=== PATIENT | female | born 1995 | race Caucasian/White ===

== ENCOUNTER 2017-12-16 18:17 | Emergency (ER) | payer OTHER ==
[2017-12-16 18:25] VITALS: BP 141/83; PULSE 95; RESP 18; TEMP 97.2
[2017-12-16] MEDS ORDERED: IBUPROFEN 600 MG TAB PO STA (18:28)
[2017-12-16] MEDS ORDERED: ACETAMINOPHEN TAB 325 MG TAB PO STA (18:28)
--- NOTE | 2017-12-16 18:33 | ED ---
Lower Extremity Injury HPI - General Chief Complaint: Extremity Injury, Lower Stated Complaint: Foot injury Time Seen by Provider: 12/16/17 18:25 Source: patient Mode of arrival: ambulatory Limitations: no limitations - History of Present Illness Initial Comments: 22-year-old female patient presented to the emergency department for evaluation of right foot pain. Patient states that around 2 PM today she actually kicked a chair. States that she's been having sharp shooting pains through the foot since then. States that she does have pain with ambulation as well. She denies any numbness or tingling to the foot. Denies any difficulty with range of motion to the ankle. Denies taking anything for pain. Denies any other injuries. Patient denies any headache, neck pain, back pain, chest pain, shortness of breath, dizziness, weakness, abdominal pain, nausea, vomiting, or difficulties with bowel movements or urination. She denies any chance of . - Related Data Home Medications Medication Instructions Recorded Confirmed Acyclovir 400 mg PO BID 08/29/16 10/21/16 Iron 18 mg PO DAILY 08/30/16 10/21/16 Previous Rx's Medication Instructions Recorded Acetaminophen-Codeine 300-30mg 1 tab PO Q4H PRN #30 tablet 10/24/16 [Tylenol #3] Ibuprofen [Motrin] 600 mg PO Q6HR PRN #30 tab 10/24/16 Ibuprofen [Motrin] 600 mg PO Q8HR PRN #30 tab 12/16/17 Allergies Allergy/AdvReac Type Severity Reaction Status Date / Time No Known Allergies Allergy Verified 12/16/17 18:18 Review of Systems ROS Statement: Those systems with pertinent positive or pertinent negative responses have been documented in the HPI. ROS Other: All systems not noted in ROS Statement are negative. Past Medical History Past Medical History: No Reported History Additional Past Medical History / Comment(s): herpes History of Any Multi-Drug Resistant Organisms: None Reported Past Surgical History: Section Past Anesthesia/Blood Transfusion Reactions: No Reported Reaction Additional Past Anesthesia/Blood Transfusion Reaction / Comment(s): NEVER HAS HAD GENERAL ANESTHESIA Past Psychological History: Anxiety, Depression Smoking Status: Current every day smoker Past Alcohol Use History: None Reported Past Drug Use History: None Reported, Marijuana - Past Family History Mother Family Medical History: No Reported History Father Additional Family Medical History / Comment(s): "PASSES OUT" MOM STATES "BOTH DAUGHTER'S DAD AND AUNT PASS OUT CECELIA WHEN SMOKING WEED WHEN THEY WERE YOUNG BUT NOBODY HAS SEEN A DR FOR IT" General Exam Limitations: no limitations General appearance: alert, in no apparent distress, other (This is a well- developed, well-nourished adult female patient in no acute distress. Vital signs upon presentation are temperature 97.2F, pulse 95, respirations 18, blood pressure 141/83, pulse ox 99% on room air. ) Eye exam: Present: normal appearance, PERRL, EOMI. Absent: scleral icterus, conjunctival injection, periorbital swelling ENT exam: Present: normal exam, normal oropharynx, mucous membranes moist Respiratory exam: Present: normal lung sounds bilaterally. Absent: respiratory distress, wheezes, rales, rhonchi, stridor Cardiovascular Exam: Present: regular rate, normal rhythm, normal heart sounds. Absent: systolic murmur, diastolic murmur, rubs, gallop, clicks GI/Abdominal exam: Present: soft, normal bowel sounds. Absent: distended, tenderness, guarding, rebound, rigid Extremities exam: Present: full ROM, tenderness (Over the dorsal aspect of the right foot), normal capillary refill, other (Ecchymosis noted over the dorsal aspect of the right foot. Skin is otherwise pink, warm, and dry. Cap refills less than 3 seconds. Pedal and posttibial pulses are 2+ and equal bilaterally.) . Absent: normal inspection, pedal edema, joint swelling, calf tenderness Neurological exam: Present: alert, oriented X3, CN II-XII intact Psychiatric exam: Present: normal affect, normal mood Skin exam: Present: warm, dry, intact, normal color. Absent: rash Course Vital Signs 12/16/17 18:18 Temperature 97.2 F L Pulse Rate 95 Respiratory 18 Rate Blood Pressure 141/83 O2 Sat by Pulse 99 Oximetry Medical Decision Making - Medical Decision Making 22-year-old female patient presented to the emergency department today for evaluation of right foot pain and ecchymosis after kicking a chair. Physical examination does reveal ecchymosis over the dorsum of the foot. Patient is tender over this area as well. X-ray of the foot was negative for any acute fracture dislocation however patient is tender over the area concerning for Lisfranc fracture. She will be placed in a splint and instructed to remain nonweightbearing until she follows up with orthopedics. She is instructed to return here immediately for any new, worsening, or concerning symptoms. She verbalizes understanding and agrees this plan. - Radiology Data Radiology results: report reviewed, image reviewed 3 views of the right foot shows no fracture or dislocation. Metatarsals are intact. There are no erosions. Impression by Dr. Walton shows negative right foot exam. Disposition Clinical Impression: Right foot injury, Ecchymosis Disposition: HOME SELF-CARE Condition: Good Instructions: Contusion in Adults (ED) Additional Instructions: Your x-ray is negative, but there is a possibility of an occult Lis Franc fracture. Leave splint in place for one week. If symptoms are not improved, follow up with orthopedics for repeat xray and testing. Use crutches. Return here immediately for any new, worsening, or concerning symptoms. Prescriptions: Ibuprofen [Motrin] 600 mg PO Q8HR PRN #30 tab PRN Reason: Pain Referrals: Jayden Willson MD [Primary Care Provider] - 1-2 days Time of Disposition: 19:29
--- NOTE | 2017-12-16 19:05 | XR ---
EXAMINATION TYPE: XR foot complete RT DATE OF EXAM: 12/16/2017 COMPARISON: NONE HISTORY: Foot pain TECHNIQUE: 3 views FINDINGS: I see no fracture nor dislocation. Metatarsals are intact. There are no erosions. IMPRESSION: Negative right foot exam.
--- NOTE | 2017-12-18 05:09 | CDI ---
Documentation Clarification OP Dear Angelica BURCIAGA, NPC, Please add addendum for Type of splint application procedure. Thank you, [employer] Test Engineer If you have any questions please contact manager process excellence at [phone]. MTDD
== END 2017-12-16 19:43 | disposition home or self-care (01) ==
LOC: EC 18:17
DX: S90.31XA Contusion of right foot, initial encounter (principal); F17.200 Nicotine dependence, unspecified, uncomplicated; Z79.899 Other long term (current) drug therapy; W22.8XXA Striking against or struck by other objects, initial encounter
CPT/HCPCS: 29515; 99283

== ENCOUNTER 2018-01-26 13:56 | Emergency (ER) | payer OTHER ==
--- NOTE | 2018-01-26 15:07 | ED ---
General Adult HPI - General Chief complaint: Extremity Injury, Upper Stated complaint: arm injury Source: patient Mode of arrival: ambulatory Limitations: no limitations - History of Present Illness Initial comments: 22 year old female presents with right elbow pain after slamming it in the car door last night at 11:30 pm. Patient states bruising has continued since last night. She states she has pain upon flexion and extension of the elbow as well as supination the forearm. Denies any pain or loss of ROM in the right wrist or right shoulder. Neurovascular intact. There is bruising to the lateral epicondyle of the right humerus as well as the medial aspect of the upper right arm. Patient has not taken anything for pain. She also complains of a "bump" under the angle of the left mandible. It has been there for 2 days and is very tender. She has never had anything like this occur before. Patient denies ear pain and rhinorrhea. She does admit to slight tenderness in the throat upon swallowing. - Related Data Home Medications Medication Instructions Recorded Confirmed Citalopram Hydrobromide [CeleXA] 20 mg PO DAILY 01/26/18 01/26/18 Allergies Allergy/AdvReac Type Severity Reaction Status Date / Time No Known Allergies Allergy Verified 01/26/18 14:06 Review of Systems ROS Statement: Those systems with pertinent positive or pertinent negative responses have been documented in the HPI. ROS Other: All systems not noted in ROS Statement are negative. Past Medical History Past Medical History: No Reported History Additional Past Medical History / Comment(s): herpes History of Any Multi-Drug Resistant Organisms: None Reported Past Surgical History: Section Past Anesthesia/Blood Transfusion Reactions: No Reported Reaction Additional Past Anesthesia/Blood Transfusion Reaction / Comment(s): NEVER HAS HAD GENERAL ANESTHESIA Past Psychological History: Anxiety, Depression Smoking Status: Current every day smoker Past Alcohol Use History: None Reported Past Drug Use History: None Reported - Past Family History Mother Family Medical History: No Reported History Father Additional Family Medical History / Comment(s): "PASSES OUT" MOM STATES "BOTH DAUGHTER'S DAD AND AUNT PASS OUT CECELIA WHEN SMOKING WEED WHEN THEY WERE YOUNG BUT NOBODY HAS SEEN A DR FOR IT" General Exam Limitations: no limitations General appearance: alert Head exam: Present: atraumatic, normocephalic Eye exam: Present: normal appearance. Absent: conjunctival injection, periorbital swelling, periorbital tenderness Pupils: Present: normal accommodation ENT exam: Present: mucous membranes moist, other (erythematous throat ) Neck exam: Present: tenderness (tender nodule, likely lymph node, under the left angle of the mandible), full ROM, lymphadenopathy (tender left submandibular lymph node, no posterior lymph nodes or other cervical lymph nodes ) Extremities exam: Present: tenderness, other (neurovascular intact in right upper extremity). Absent: full ROM (limited flexion, extension of right forearm and supination of right hand.) Course Vital Signs 01/26/18 13:57 Temperature 96.8 F L Pulse Rate 107 H Respiratory 17 Rate Blood Pressure 124/85 O2 Sat by Pulse 98 Oximetry Medical Decision Making - Medical Decision Making 22-year-old female patient presented after slamming right elbow in car door late last night. She states she has pain with flexion and extension and supination of the right hand. There is slight bruising of the right elbow. X- ray of right elbow showed no abnormalities or fractures. She has not tried any [id number] medication for pain as of yet, so I recommended tylenol or ibuprofen. Patient also agreed to wait and see if her lymph node improves. If not she is going to follow up with her family care physician. She does not want to start antibiotics at this time. Disposition Clinical Impression: Elbow contusion Disposition: HOME SELF-CARE Instructions: Elbow Sprain (ED) Additional Instructions: If symptoms worsen, return to ED. Take [id number] tylenol for pain and use ice or heat. Referrals: Jayden Willson MD [Primary Care Provider] - 1-2 days Time of Disposition: 15:45
--- NOTE | 2018-01-26 15:19 | XR ---
EXAMINATION TYPE: XR elbow complete RT DATE OF EXAM: 01/26/2018 CLINICAL HISTORY: Right elbow pain after injury TECHNIQUE: Frontal, lateral and oblique images of the right elbow are obtained. COMPARISON: None FINDINGS: There is no acute fracture/dislocation evident in the right elbow. No abnormal fat pad si gns are seen. The overlying soft tissue appears unremarkable. IMPRESSION: There is no acute fracture or dislocation in the right elbow.
[2018-01-26 16:08] VITALS: BP 120/81; PULSE 98; RESP 16; TEMP 97.1
== END 2018-01-26 16:08 | disposition home or self-care (01) ==
LOC: EC 13:56
DX: S50.01XA Contusion of right elbow, initial encounter (principal); F32.9 Major depressive disorder, single episode, unspecified; F17.200 Nicotine dependence, unspecified, uncomplicated; Z79.899 Other long term (current) drug therapy; W23.0XXA Caught, crushed, jammed, or pinched between moving objects, initial encounter
CPT/HCPCS: 99283

== ENCOUNTER 2018-02-21 21:24 | Inpatient (IN) | payer OTHER, MEDICAID ==
--- NOTE | 2018-02-21 21:52 | ED ---
General Adult HPI - General Chief complaint: Psychiatric Symptoms Stated complaint: Mental Health Eval Time Seen by Provider: 02/21/18 21:33 Source: patient, RN notes reviewed Mode of arrival: ambulatory Limitations: no limitations - History of Present Illness Initial comments: Patient is a pleasant 22-year-old female presenting to the emergency Department with depression and suicidal thoughts. Symptoms have been worsening. Patient has multiple stressors that are causing her depression. Patient does have a history of previous suicide attempt. Patient does not have a plan at this time. No physical complaints. No hallucinations. No alcohol or street drug use. - Related Data Home Medications Medication Instructions Recorded Confirmed Citalopram Hydrobromide [CeleXA] 20 mg PO DAILY 01/26/18 01/26/18 Allergies Allergy/AdvReac Type Severity Reaction Status Date / Time No Known Allergies Allergy Verified 02/21/18 21:28 Review of Systems ROS Statement: Those systems with pertinent positive or pertinent negative responses have been documented in the HPI. ROS Other: All systems not noted in ROS Statement are negative. Constitutional: Denies: fever Eyes: Denies: eye pain ENT: Denies: ear pain Respiratory: Denies: cough Cardiovascular: Denies: chest pain Endocrine: Denies: fatigue Gastrointestinal: Denies: abdominal pain Genitourinary: Denies: dysuria Musculoskeletal: Denies: back pain Psychiatric: Reports: depression, suicidal thoughts Past Medical History Past Medical History: No Reported History Additional Past Medical History / Comment(s): herpes History of Any Multi-Drug Resistant Organisms: None Reported Past Surgical History: Section Past Anesthesia/Blood Transfusion Reactions: No Reported Reaction Additional Past Anesthesia/Blood Transfusion Reaction / Comment(s): NEVER HAS HAD GENERAL ANESTHESIA Past Psychological History: Anxiety, Depression Smoking Status: Current every day smoker Past Alcohol Use History: None Reported Past Drug Use History: None Reported - Past Family History Mother Family Medical History: No Reported History Father Additional Family Medical History / Comment(s): "PASSES OUT" MOM STATES "BOTH DAUGHTER'S DAD AND AUNT PASS OUT CECELIA WHEN SMOKING WEED WHEN THEY WERE YOUNG BUT NOBODY HAS SEEN A DR FOR IT" General Exam Limitations: no limitations General appearance: alert, in no apparent distress, anxious Head exam: Present: atraumatic Eye exam: Present: normal appearance Neck exam: Present: normal inspection Respiratory exam: Present: normal lung sounds bilaterally Cardiovascular Exam: Present: regular rate, normal rhythm GI/Abdominal exam: Present: soft. Absent: tenderness Extremities exam: Present: normal inspection Back exam: Present: normal inspection Neurological exam: Present: alert Psychiatric exam: Present: depressed, other (Tearful) Skin exam: Present: normal color Course Vital Signs 02/21/18 21:26 Temperature 98.3 F Pulse Rate 101 H Respiratory 20 Rate Blood Pressure 142/97 O2 Sat by Pulse 99 Oximetry Medical Decision Making - Medical Decision Making Patient was seen by mental health services, who will admit. - Lab Data Lab Results 02/21/18 Range/Units 22:30 Urine HCG, Qual Not Detected (Not Detectd) Disposition Clinical Impression: Depression, Suicidal ideation Disposition: TRANSFER TO PSYCH HOSP/UNIT Referrals: Jayden Willson MD [Primary Care Provider] - 1-2 days Decision Time: 23:03
[2018-02-21 23:08] LABS: Amphetamine Screen,Urine Not Detected (NotDetected); Barbiturate Screen,Urine Not Detected (NotDetected); Benzodiazepines Screen,Urine Not Detected (NotDetected); Cocaine Screen,Urine Not Detected (NotDetected); Methadone Screen, Urine Not Detected (NotDetected); Opiate Screen,Urine Not Detected (NotDetected); Oxycodone Screen, Urine Not Detected (NotDetected); Phencyclidine Screen,Urine Not Detected (NotDetected); Tricyclic Antidepressant,Urine Not Detected (NotDetected); Urn Cannabinoid Scrn Not Detected (NotDetected)
[2018-02-21] MEDS ORDERED: ZIPRASIDONE 20 MG VIAL IM PRN (23:28)
[2018-02-21] MEDS ORDERED: ACETAMINOPHEN TAB 325 MG TAB PO PRN (23:28)
[2018-02-21] MEDS ORDERED: MAG HYDROX/AL HYDROX/SIMETH 30 ML CUP PO PRN (23:28)
[2018-02-21] MEDS ORDERED: MAGNESIUM HYDROXIDE 2,400 MG/10 ML CUP PO PRN (23:28)
[2018-02-21 23:39] LABS: Appearance,Urine Clear (Clear); Bilirubin,Urine Negative (Negative); Blood,Urine Negative (Negative); Color,Urine Light Yellow; Glucose,Urine (UA) Negative (Negative); Ketones,Urine 1+ (Negative); Leukocyte Esterase,Urine Negative (Negative); Nitrite,Urine Negative (Negative); PH, Urine 6.5 (5.0-8.0); Protein,Urine Negative (Negative); Specific Gravity,Urine 1.005 (1.001-1.035); Urobilinogen,Urine <2.0 mg/dL (<2.0)
[2018-02-22] MEDS ORDERED: hydrOXYzine PAMOATE 25 MG CAP PO PRN (00:30)
[2018-02-22 08:54] LABS: Basophils % (A) 1 %; Eosinophils # (A) 0.2 k/uL (0-0.7); Eosinophils % (A) 4 %; HCT 37.9 % (34.0-46.0); HGB 12.3 gm/dL (11.4-16.0); Lymphocytes # (A) 2.3 k/uL (1.0-4.8); Lymphocytes % (A) 44 %; MCH 27.5 pg (25.0-35.0); MCHC 32.4 g/dL (31.0-37.0); MCV 84.9 fL (80.0-100.0); Mean Platelet Volume 7.7; Monocytes # (A) 0.3 k/uL (0-1.0); Monocytes % (A) 6 %; Neutrophils # (A) 2.2 k/uL (1.3-7.7); Neutrophils % (A) 43 %; Platelet Count 196 k/uL (150-450); RBC 4.47 m/uL (3.80-5.40); RDW 13.3 % (11.5-15.5); WBC 5.2 k/uL (4.0-11.0)
[2018-02-22] MEDS: NICOTINE 14MG/24HR PATCH TRANSDERM SCH (09:05)
[2018-02-22 09:07] LABS: ALT 73 U/L (9-52); AST 28 U/L (14-36); Albumin 4.1 g/dL (3.5-5.0); Alkaline Phosphatase 95 U/L (38-126); Anion Gap 10 mmol/L; Blood Urea Nitrogen 14 mg/dL (7-17); Calcium 9.5 mg/dL (8.4-10.2); Carbon Dioxide 28 mmol/L (22-30); Chloride 106 mmol/L (98-107); Glucose 88 mg/dL (74-99); Potassium 4.4 mmol/L (3.5-5.1); Sodium 144 mmol/L (137-145); Total Bilirubin 1.3 mg/dL (0.2-1.3)
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
--- NOTE | 2018-02-22 15:28 | CONS ---
CONSULTATION DATE OF SERVICE: 02/22/2018. REASON FOR CONSULTATION: Medical management, mild transaminitis, adjustment disorder with depressed mood and unspecified personality disorder. BRIEF HISTORY: This is a 22-year-old female presented to ED with a complaint of depression and suicidal thoughts. The patient claims that her symptoms had been getting worse and she has had multiple stressors that are causing her depression to worsen. The patient does have history of suicidal attempt. PAST MEDICAL HISTORY: Significant for a history of genital herpes. History of anxiety and depression. SURGICAL HISTORY: Significant for section. SOCIAL HISTORY: Patient smokes every day. Claims she is not a big smoker. No history of alcohol abuse or drug abuse. FAMILY HISTORY: No history of coronary artery disease, hypertension, diabetes in the family. MEDICATIONS: Patient is on Celexa 20 mg daily. ALLERGIES: She has no known drug allergies. REVIEW OF SYSTEM: Constitutional: Patient denies fever and chills. HEENT: No vision or speech difficulty and respiratory: No shortness of breath or cough. Cardiovascular: No chest pain or palpitations. Abdomen/GI no nausea, vomiting, diarrhea. Genitourinary: No hematuria or dysuria. Musculoskeletal: Denies any muscle or joint deformities. Neurological examination: No dizziness, lightheadedness. No weakness. Skin: No rashes or pigmentation. Psychiatric: History of depression and suicidal ideation as per HPI. PHYSICAL EXAMINATION: General: Patient is awake and alert. She is in no acute distress. She is slow to respond though. Vital signs: Temperature 98.3, pulse 71, respiration 20, blood pressure 142/97, O2 saturation 99. HEENT atraumatic, normocephalic. Pupils equal and reactive to light. Extraocular movements intact. Buccal mucosa is fair. NECK: Supple. No goiter or lymphadenopathy. JVD is negative. No carotid bruit heard. Lungs are clear to auscultate. No rales, rhonchi, or wheezes. Heart is regular rate and rhythm without any murmurs or gallop rhythm. ABDOMEN: Soft, nontender, nondistended. Bowel sounds positive. EXTREMITIES: No edema, clubbing or cyanosis. Neurological examination: Cranial nerves 2-12 grossly intact. No gross motor or sensory deficits. Skin is without rashes or pigmentation. LAB AND X-RAY: CBC, white blood count of 5.3, hemoglobin 12.3, hematocrit 37.9, and platelet count of 196. Chemical profile sodium 144, potassium 4.4, chloride 106, bicarb 28, BUN 14, creatinine 0.92, glucose 88, AST 28, ALT slightly high at 73. TSH is 1.39. Urine drug screen is negative. ASSESSMENT: 1. Mild transaminitis. 2. Uncontrolled hypertension. 3. Major depression and suicidal ideation. PLAN: To monitor patient's blood pressure closely and we will recommend oral antihypertensive medications if remains persistently elevated. We will also order hepatic function panel to monitor and transaminases and possible ultrasound of the abdomen if patient's transaminases are trending up. We will follow the patient with you. We really do appreciate this kind consultation. Further recommendations depending upon the clinical course. MMODL / IJN: [id number] /
[2018-02-22] MEDS ORDERED: QUEtiapine 50 MG TAB PO SCH (21:00)
[2018-02-23 06:35] VITALS: RESP 14
[2018-02-23] MEDS: NICOTINE 14MG/24HR PATCH TRANSDERM SCH (09:22)
[2018-02-23 09:36] LABS: Basophils % (A) 1 %; Eosinophils # (A) 0.2 k/uL (0-0.7); Eosinophils % (A) 4 %; HCT 37.8 % (34.0-46.0); HGB 12.3 gm/dL (11.4-16.0); Lymphocytes # (A) 1.9 k/uL (1.0-4.8); Lymphocytes % (A) 36 %; MCH 27.8 pg (25.0-35.0); MCHC 32.6 g/dL (31.0-37.0); MCV 85.3 fL (80.0-100.0); Mean Platelet Volume 7.8; Monocytes # (A) 0.2 k/uL (0-1.0); Monocytes % (A) 4 %; Neutrophils # (A) 2.9 k/uL (1.3-7.7); Neutrophils % (A) 54 %; Platelet Count 179 k/uL (150-450); RBC 4.44 m/uL (3.80-5.40); RDW 13.5 % (11.5-15.5); WBC 5.3 k/uL (4.0-11.0)
[2018-02-23 09:51] LABS: Albumin 3.9 g/dL (3.5-5.0); Bilirubin, Delta 0.2 mg/dL (0.0-0.2); Bilirubin,Unconjugated 0.4 mg/dL (0.0-1.1); Total Bilirubin 0.6 mg/dL (0.2-1.3); Total Protein 6.8 g/dL (6.3-8.2)
[2018-02-23] MEDS: FLUoxetine HCL 10 MG CAP PO SCH (11:08)
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
[2018-02-23 14:02] VITALS: BMI 22.4
[2018-02-23] MEDS: hydrOXYzine PAMOATE 25 MG CAP PO PRN (23:12)
[2018-02-24 06:45] VITALS: BP 105/57; PULSE 63; TEMP 98.5
[2018-02-24] MEDS: FLUoxetine HCL 10 MG CAP PO SCH (08:24)
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
[2018-02-24] MEDS: hydrOXYzine PAMOATE 25 MG CAP PO PRN (12:28)
== END 2018-02-24 13:50 | disposition home or self-care (01) | DRG 882 ==
LOC: EC 21:24 → 3MHU 23:17
PROVIDERS: ADMIT Psychiatry & Neurology Psychiatry; ATTEND Psychiatry & Neurology Psychiatry
DX: F43.23 Adjustment disorder with mixed anxiety and depressed mood (principal); R45.851 Suicidal ideations; A60.00 Herpesviral infection of urogenital system, unspecified; F60.9 Personality disorder, unspecified; Z62.810 Personal history of physical and sexual abuse in childhood; F17.200 Nicotine dependence, unspecified, uncomplicated; F41.0 Panic disorder [episodic paroxysmal anxiety]; I10 Essential (primary) hypertension; Z91.5 Personal history of self-harm; Z81.8 Family history of other mental and behavioral disorders; Z88.6 Allergy status to analgesic agent; Z79.899 Other long term (current) drug therapy; Z63.0 Problems in relationship with spouse or partner; Z82.49 Family history of ischemic heart disease and other diseases of the circulatory system
CPT/HCPCS: 80053; 80076; 80306; 81003; 81025; 82075; 84443; 85025; 99285

== ENCOUNTER 2018-04-03 11:14 | Inpatient (IN) | payer OTHER ==
[2018-04-03] MEDS ORDERED: ACETAMINOPHEN IV (For NPO) 1,000 MG in EMPTY BAG 1 BAG IVPB ONE (11:52)
[2018-04-03] MEDS ORDERED: SODIUM CHLORIDE 0.9% 1,000 ML IV STA ×2 (11:52→15:15)
--- NOTE | 2018-04-03 11:57 | ED ---
General Adult HPI - General Chief complaint: Fever Stated complaint: Congested, Abd Pain, THroat Pain Time Seen by Provider: 04/03/18 11:46 Source: patient, RN notes reviewed Mode of arrival: ambulatory Limitations: no limitations - History of Present Illness Initial comments: Patient is a 22-year-old female who presents emergency room today with multiple complaints. Patient states that she's had cough congestion over the last 2 weeks. States cough has gotten worse. She does not speak production it's been green in color. Patient does admit that her appetite been decreased been having some lower abdominal pain. She does admit the pain is worse with certain movements. Unsure if it's related. Patient admits to bodyaches. Denies any complaints symptoms currently. Patient denies any recent shortness of breath, chest pain, back pain, numbness or tingling, dysuria or hematuria, constipation or diarrhea, headaches or visual changes, or any other complaints. - Related Data Previous Rx's Medication Instructions Recorded FLUoxetine HCL [PROzac] 10 mg PO DAILY #14 cap 02/24/18 hydrOXYzine PAMOATE [Vistaril] 25 mg PO Q8HR PRN #15 cap 02/24/18 Allergies Allergy/AdvReac Type Severity Reaction Status Date / Time morphine Allergy Itching Verified 04/03/18 11:47 Review of Systems ROS Statement: Those systems with pertinent positive or pertinent negative responses have been documented in the HPI. ROS Other: All systems not noted in ROS Statement are negative. Past Medical History Past Medical History: No Reported History Additional Past Medical History / Comment(s): herpes History of Any Multi-Drug Resistant Organisms: None Reported Past Surgical History: Section Past Anesthesia/Blood Transfusion Reactions: No Reported Reaction Additional Past Anesthesia/Blood Transfusion Reaction / Comment(s): NEVER HAS HAD GENERAL ANESTHESIA Past Psychological History: Anxiety, Depression Smoking Status: Current every day smoker Past Alcohol Use History: None Reported Past Drug Use History: None Reported - Past Family History Son(s) Family Medical History: No Reported History Mother Family Medical History: No Reported History Father Additional Family Medical History / Comment(s): "PASSES OUT" PER PT General Exam - General Exam Comments Initial Comments: General: The patient is awake and alert. Eye: Pupils are equal, round and reactive to light, extra-ocular movements are intact. No nystagmus. There is normal conjunctiva bilaterally. No signs of icterus. Ears, nose, mouth and throat: There are moist mucous membranes and no oral lesions. Neck: The neck is supple, there is no tenderness or JVD. Cardiovascular: There is a regular rate and rhythm. No murmur, rub or gallop is appreciated. Respiratory: Lungs are clear to auscultation, respirations are non-labored, breath sounds are equal. No wheezes, stridor, rales, or rhonchi. Gastrointestinal: Abdomen soft on palpation. Does have tenderness both right and left lower quadrants. No rebound tenderness. No guarding. No CVA tenderness. Musculoskeletal: Normal ROM, no tenderness. Strength 5/5. Sensation intact. Pulses equal bilaterally 2+. Neurological: A&O x 3. CN II-XII intact, There are no obvious motor or sensory deficits. Coordination appears grossly intact. Speech is normal. Skin: Skin is warm and dry and no rashes or lesions are noted. Psychiatric: Cooperative, appropriate mood & affect, normal judgment. Limitations: no limitations Course Vital Signs 04/03/18 04/03/18 04/03/18 11:32 12:28 13:00 Temperature 102 F H 103.6 F H 101.6 F H Pulse Rate 151 H 120 H 115 H Respiratory 18 18 18 Rate Blood Pressure 113/61 110/56 100/85 O2 Sat by Pulse 95 97 98 Oximetry 04/03/18 14:55 Temperature 101.2 F H Pulse Rate 118 H Respiratory 20 Rate Blood Pressure 112/58 O2 Sat by Pulse 98 Oximetry - Reevaluation(s) Reevaluation #1: 04/03/18 13:01 Patient reexamined at this time and that shows improvement. She states is beginning to feel better in the emergency room. Her heart rates much improved after some fluids and IV Tylenol currently infusing. Patient's urinalysis is positive for . Patient did admit that there was a chance she could be . Blood test has been added and is currently pending. Patient will have chest x-ray she's had cough congestion for 2 weeks pulse ox 95% on at triage. Patient will be shielded. Patient is in agreement with this plan at this time. Medical Decision Making - Medical Decision Making Patient reexamined at this time states she still having chills. Still fever or 1.2F. Patient was given a gram of Tylenol through the IV here in emergency room. Patient currently getting second liter of fluids. Patient labs been reviewed no elevated white count. Slight shift of neutrophils at 8.8. Patient' s chemistry reviewed shows bilirubin at 1.5. Remaining unremarkable. Lactic acid negative. Patient chest x-ray showing no sign of pneumonia. Patient's had cough congestion for the past 2 weeks with sputum production. Patient's influenza is negative. Patient's test was positive. Beta hCG added 46 currently. Patient did have ultrasound of the right upper quadrant which was unremarkable. Showing no sign of appendicitis on ultrasound. Patient's also on transvaginal he shows no IUP at this time. Does show a solid appearing lesion on the left ovary measuring approximately 2 cm in size. Case was discussed with attending physician Dr. Mckay. Case discussed with admitting physician Dr. Meraz in detail. Patient will be admitted for fever of unknown origin. Consults to infectious disease and [employer] at this time. - Lab Data Result diagrams: 04/03/18 12:20 04/03/18 12:20 Lab Results 04/03/18 04/03/18 04/03/18 Range/Units 12:20 12:20 12:20 WBC 9.6 (4.0-11.0) k/uL RBC 4.35 (3.80-5.40) m/uL Hgb 12.5 (11.4-16.0) gm/dL Hct 34.8 (34.0-46.0) % MCV 80.1 D (80.0-100.0) fL MCH 28.7 (25.0-35.0) pg MCHC 35.9 (31.0-37.0) g/dL RDW 13.0 (11.5-15.5) % Plt Count 140 L (150-450) k/uL Neutrophils % 91 % Lymphocytes % 5 % Monocytes % 3 % Eosinophils % 1 % Basophils % 0 % Neutrophils # 8.8 H (1.3-7.7) k/uL Lymphocytes # 0.5 L (1.0-4.8) k/uL Monocytes # 0.3 (0-1.0) k/uL Eosinophils # 0.1 (0-0.7) k/uL Basophils # 0.0 (0-0.2) k/uL Sodium 141 (137-145) mmol/L Potassium 3.9 (3.5-5.1) mmol/L Chloride 103 (98-107) mmol/L Carbon Dioxide 21 L (22-30) mmol/L Anion Gap 17 mmol/L BUN 12 (7-17) mg/dL Creatinine 0.70 (0.52-1.04) mg/dL Est GFR (CKD-EPI)AfAm >90 (>60 ml/min/1.73 sqM) Est GFR (CKD-EPI)NonAf >90 (>60 ml/min/1.73 sqM) Glucose 105 H (74-99) mg/dL Plasma Lactic Acid [place] (0.7-2.0) mmol/L Calcium 9.3 (8.4-10.2) mg/dL Total Bilirubin 1.5 H (0.2-1.3) mg/dL AST 17 (14-36) U/L ALT 16 (9-52) U/L Alkaline Phosphatase 90 (38-126) U/L Total Protein 6.9 (6.3-8.2) g/dL Albumin 4.3 (3.5-5.0) g/dL Amylase 42 (30-110) U/L Lipase 31 (23-300) U/L HCG, Quant mIU/mL Urine Color Urine Appearance (Clear) Urine pH (5.0-8.0) Ur Specific [place] (1.001-1.035) Urine Protein (Negative) Urine Glucose (UA) (Negative) Urine Ketones (Negative) Urine Blood (Negative) Urine Nitrite (Negative) Urine Bilirubin (Negative) Urine Urobilinogen (<2.0) mg/dL Ur Leukocyte Esterase (Negative) Urine HCG, Qual Detected (Not Detectd) Influenza Type A RNA (Not Detectd) Influenza Type B (PCR) (Not Detectd) 04/03/18 04/03/18 04/03/18 Range/Units 12:20 12:20 12:20 WBC (4.0-11.0) k/uL RBC (3.80-5.40) m/uL Hgb (11.4-16.0) gm/dL Hct (34.0-46.0) % MCV (80.0-100.0) fL MCH (25.0-35.0) pg MCHC (31.0-37.0) g/dL RDW (11.5-15.5) % Plt Count (150-450) k/uL Neutrophils % % Lymphocytes % % Monocytes % % Eosinophils % % Basophils % % Neutrophils # (1.3-7.7) k/uL Lymphocytes # (1.0-4.8) k/uL Monocytes # (0-1.0) k/uL Eosinophils # (0-0.7) k/uL Basophils # (0-0.2) k/uL Sodium (137-145) mmol/L Potassium (3.5-5.1) mmol/L Chloride (98-107) mmol/L Carbon Dioxide (22-30) mmol/L Anion Gap mmol/L BUN (7-17) mg/dL Creatinine (0.52-1.04) mg/dL Est GFR (CKD-EPI)AfAm (>60 ml/min/1.73 sqM) Est GFR (CKD-EPI)NonAf (>60 ml/min/1.73 sqM) Glucose (74-99) mg/dL Plasma Lactic Acid [place] 0.9 (0.7-2.0) mmol/L Calcium (8.4-10.2) mg/dL Total Bilirubin (0.2-1.3) mg/dL AST (14-36) U/L ALT (9-52) U/L Alkaline Phosphatase (38-126) U/L Total Protein (6.3-8.2) g/dL Albumin (3.5-5.0) g/dL Amylase (30-110) U/L Lipase (23-300) U/L HCG, Quant 46.0 mIU/mL Urine Color Yellow Urine Appearance Clear (Clear) Urine pH 7.0 (5.0-8.0) Ur Specific [place] 1.019 (1.001-1.035) Urine Protein Trace H (Negative) Urine Glucose (UA) Negative (Negative) Urine Ketones Negative (Negative) Urine Blood Negative (Negative) Urine Nitrite Negative (Negative) Urine Bilirubin Negative (Negative) Urine Urobilinogen 2.0 (<2.0) mg/dL Ur Leukocyte Esterase Negative (Negative) Urine HCG, Qual (Not Detectd) Influenza Type A RNA (Not Detectd) Influenza Type B (PCR) (Not Detectd) 04/03/18 Range/Units 15:20 WBC (4.0-11.0) k/uL RBC (3.80-5.40) m/uL Hgb (11.4-16.0) gm/dL Hct (34.0-46.0) % MCV (80.0-100.0) fL MCH (25.0-35.0) pg MCHC (31.0-37.0) g/dL RDW (11.5-15.5) % Plt Count (150-450) k/uL Neutrophils % % Lymphocytes % % Monocytes % % Eosinophils % % Basophils % % Neutrophils # (1.3-7.7) k/uL Lymphocytes # (1.0-4.8) k/uL Monocytes # (0-1.0) k/uL Eosinophils # (0-0.7) k/uL Basophils # (0-0.2) k/uL Sodium (137-145) mmol/L Potassium (3.5-5.1) mmol/L Chloride (98-107) mmol/L Carbon Dioxide (22-30) mmol/L Anion Gap mmol/L BUN (7-17) mg/dL Creatinine (0.52-1.04) mg/dL Est GFR (CKD-EPI)AfAm (>60 ml/min/1.73 sqM) Est GFR (CKD-EPI)NonAf (>60 ml/min/1.73 sqM) Glucose (74-99) mg/dL Plasma Lactic Acid [place] (0.7-2.0) mmol/L Calcium (8.4-10.2) mg/dL Total Bilirubin (0.2-1.3) mg/dL AST (14-36) U/L ALT (9-52) U/L Alkaline Phosphatase (38-126) U/L Total Protein (6.3-8.2) g/dL Albumin (3.5-5.0) g/dL Amylase (30-110) U/L Lipase (23-300) U/L HCG, Quant mIU/mL Urine Color Urine Appearance (Clear) Urine pH (5.0-8.0) Ur Specific [place] (1.001-1.035) Urine Protein (Negative) Urine Glucose (UA) (Negative) Urine Ketones (Negative) Urine Blood (Negative) Urine Nitrite (Negative) Urine Bilirubin (Negative) Urine Urobilinogen (<2.0) mg/dL Ur Leukocyte Esterase (Negative) Urine HCG, Qual (Not Detectd) Influenza Type A RNA Not Detected (Not Detectd) Influenza Type B (PCR) Not Detected (Not Detectd) Disposition Clinical Impression: Fever, unknown origin, Positive test Disposition: ADMITTED IP TO THIS HOSP Condition: Stable Is patient prescribed a controlled substance at d/c from ED?: No Referrals: Jayden Willson MD [Primary Care Provider] - 1-2 days Time of Disposition: 16:18
[2018-04-03 12:44] LABS: Appearance,Urine Clear (Clear); Bilirubin,Urine Negative (Negative); Blood,Urine Negative (Negative); Color,Urine Yellow; Glucose,Urine (UA) Negative (Negative); Ketones,Urine Negative (Negative); Leukocyte Esterase,Urine Negative (Negative); Nitrite,Urine Negative (Negative); Protein,Urine Trace (Negative); Specific Gravity,Urine 1.019 (1.001-1.035)
[2018-04-03 12:54] LABS: ALT 16 U/L (9-52); AST 17 U/L (14-36); Albumin 4.3 g/dL (3.5-5.0); Alkaline Phosphatase 90 U/L (38-126); Amylase 42 U/L (30-110); Anion Gap 17 mmol/L; Blood Urea Nitrogen 12 mg/dL (7-17); Calcium 9.3 mg/dL (8.4-10.2); Carbon Dioxide 21 mmol/L (22-30); Chloride 103 mmol/L (98-107); Glucose 105 mg/dL (74-99); Lipase 31 U/L (23-300); Potassium 3.9 mmol/L (3.5-5.1); Sodium 141 mmol/L (137-145); Total Bilirubin 1.5 mg/dL (0.2-1.3); Total Protein 6.9 g/dL (6.3-8.2)
[2018-04-03 12:56] LABS: Basophils % (A) 0 %; Eosinophils # (A) 0.1 k/uL (0-0.7); Eosinophils % (A) 1 %; HCT 34.8 % (34.0-46.0); HGB 12.5 gm/dL (11.4-16.0); Lymphocytes # (A) 0.5 k/uL (1.0-4.8); Lymphocytes % (A) 5 %; MCH 28.7 pg (25.0-35.0); MCHC 35.9 g/dL (31.0-37.0); Mean Platelet Volume 7.6; Monocytes # (A) 0.3 k/uL (0-1.0); Monocytes % (A) 3 %; Neutrophils # (A) 8.8 k/uL (1.3-7.7); Neutrophils % (A) 91 %; Platelet Count 140 k/uL (150-450); RBC 4.35 m/uL (3.80-5.40); WBC 9.6 k/uL (4.0-11.0)
[2018-04-03 13:02] LABS: MCV 80.1 fL (80.0-100.0)
--- NOTE | 2018-04-03 13:09 | XR ---
EXAMINATION TYPE: XR chest 2V DATE OF EXAM: 04/03/2018 COMPARISON: NONE HISTORY: Chest pain TECHNIQUE: Frontal and lateral views of the chest are obtained. FINDINGS: There is no focal air space opacity. No evidence for pneumothorax. No pleural effusion. The cardiac silhouette size is within normal limits. The osseous structures are grossly intact. IMPRESSION: 1. No acute cardiopulmonary process.
--- NOTE | 2018-04-03 14:46 | US ---
EXAMINATION TYPE: US abdomen APPY DATE OF EXAM: 04/03/2018 COMPARISON: NONE CLINICAL HISTORY: Pain. Extreme RLQ pain with fever APPENDIX Unable to visualize the appendix at this time, persisting bowel with small pocket of free fluid note d in RLQ IMPRESSION: Nonvisualization of the appendix at this time. Consider CT if clinically indicated.
--- NOTE | 2018-04-03 14:47 | US ---
EXAMINATION TYPE: US abdomen limited DATE OF EXAM: 04/03/2018 COMPARISON: NONE CLINICAL HISTORY: Pain. RLQ pain with fever, has not eaten today EXAM MEASUREMENTS: Liver Length: 16.2 cm Gallbladder Wall: 0.2 cm CBD: 0.4 cm Right Kidney: 9.9 x 4.7 x 4.0 cm bowel gas obscures images Pancreas: limited views appear wnl Liver: wnl Gallbladder: fold seen, wnl Evidence for sonographic Luna's sign: no CBD: wnl Right Kidney: wnl IMPRESSION: Unremarkable study.
--- NOTE | 2018-04-03 14:50 | US ---
EXAMINATION TYPE: Transabdominal DATE OF EXAM: 03/03/18 COMPARISON: NONE CLINICAL HISTORY: Pain. RLQ pain with fever EXAM PERFORMED: OBTA and OBTV EXAM MEASUREMENTS: GESTATIONAL AGE / DATING Physician Established: not established Dates by LMP: 2 weeks ago, irregular cycles Dates by First Scan: [employer] Dates by Current Scan for: No IUP seen at this time MATERNAL ANATOMY Uterus: 7.5 x 5.5 x 5.2cm, retroflexed Right Ovary: 3.5 x 2.8 x 1.9 Left Ovary: 2.3cm solid appearing lesion noted inferior to right ovary Post CDS / Adnexa: free fluid Presence of free fluid: YES, CDS and bilateral adnexa Presence of corpus luteal cyst: possible 2.1cm on the right Presence of subchorionic bleed: no GESTATION / SURVEY CRL: not seen MSD: not seen Yolk Sac (normal less than 6mm): not seen Heart Rate: N/A IUP: not seen Date of LMP: 2 weeks ago Beta HcG (if available): 46 Peristalsing bowel throughout pelvis and patient pain limits exam IMPRESSION: 1. Solid-appearing lesion left ovary of nonspecific etiology. Follow-up in 6 weeks is advised. 2. Free fluid seen within the pelvis. 3. No evidence for intrauterine at this time. Correlate with serial beta hCG and/or ultraso und.
[2018-04-03] MEDS ORDERED: SODIUM CHLORIDE 0.9% 1,000 ML IV ONE (16:19)
[2018-04-03] MEDS ORDERED: NALOXONE 0.4 MG/ML 1 ML VIAL IV PRN (16:19)
[2018-04-03] MEDS: ACETAMINOPHEN TAB 500 MG TAB PO PRN (18:02)
--- NOTE | 2018-04-03 19:33 | P.OBCN ---
History of Present Illness Consult date: 04/03/18 Requesting physician: Jayden Willson Reason for consult: early problem Chief complaint: Early History of present illness: Patient is a 22-year-old female known to my practice. She is seen and evaluated this afternoon for abdominal/pelvic pain as well as a positive test. BHCG test is 46, which is consistent with a very early . She relates that she has up to 3 cycles a month and is uncertain as to exactly when her last actual menstrual cycle would have been. She reports that she did have some bleeding approximately 2 weeks ago. She denies nausea at this time. Late last year we did remove her nexplanon control and started her on oral contraceptive. She has not been taking them. She was admitted this afternoon for hyperpyrexia and abdominal pain. In reviewing her labs, she is noted to have a normal white blood cell count at 9.6 and stable Hg of 12. urine is essentially normal and other than the low beta hCG there is no other gross findings as far as gynecologic conditions. She did undergo a transvaginal pelvic ultrasound which revealed some free fluid within the pelvis which is nonspecific as well as a solid 2 cm area just inferior to the right ovary. This lesion did not have any blood flow or ring of fire consistent with an ectopic however. At that beta hCG it is less likely that she would have an ectopic as well, but he cannot be completely ruled out. There are no signs or symptoms of hypovolemia. On physical exam she is tachycardic with heart rate in the 130s and a temperature of 102 despite Tylenol. She has not been started on any antibiotics although this could be a viral exanthem as well. It is noted that she relates a 2 week history of persistent cough and just in general having malaise and not feeling well and that is really what brought her to the hospital today along with the worsening abdominal pain. Her heart does sound otherwise regular and it is difficult to hear her lungs sounds as at this time with any deep breath she is having sharp stabbing pain in the left shoulder region causing her to refrain from any deep inspiration. She relates that when she coughs pain actually gets a little bit better but gets significantly worse with deep inspiration. Her abdomen otherwise is soft and has bowel sounds. It is noted however that she does have tenderness to palpation in the right lower quadrant with some very mild rebound tenderness. Left side of pelvis does not reveal is much pain. Ultrasound of the abdomen did not see and appendix. Cannot conclusively rule out appendicitis. It is noted that she has anorexia which while nonspecific again does not rule out appendicitis. It also does not rule out the possibility of an ectopic however, there is again no specific evidence on her ultrasound supporting an ectopic and with a beta hCG that low is less likely but certainly not impossible that she could have an ectopic . However, is more likely the free fluid is from potentially ruptured ovarian cyst versus other. It does not appear based on her hemoglobin that it is blood. In speaking to her, her predominant complaint right now is her chest pain and back pain with deep inspiration. I will have nursing contact medicine for recommendations for ruling out potentially a PE, while it is less likely as a diagnosis versus some type of musculoskeletal injury from her persitant cough this is an acute process that started about 3 or 4 hours ago following her transvaginal ultrasound. She is actually tearful with the pains at this time. Judging her other abdominal pains is also somewhat difficult in that she has malaise and generalized tenderness and anxiety from her current hyperpyrexia that make trying to conclude anything definitive difficult. Would recommend ruling out PE and considering a surgical consultation to rule out appendicitis. I am more than happy if needed to come in and assist with a diagnostic or exploratory surgery to rule out appendicitis so that if there is any gynecologic issues that they could be managed at the same time. However, with her current very low beta hCG a repeat beta-hCG may help further delineate viability and unless we are's extremely concerned for her having a an ectopic based on change in symptomatology or hypovolemia, I would not at this time recommend surgical intervention from a gynecologic standpoint. Due to the very low level of beta hCG I would not hesitate if needed to do a CAT scan to rule out PE/and/or if needed for better visualization of the appendix and pelvic region which may better define what is going on in her pelvis. Pelvic exam was not done as cultures are unobtainable at this time following her transvaginal ultrasound as the gel from the ultrasound would affect the cultures. Assessment pelvic/abdominal pain Low positive quantitative beta-hCG Chest pain and acute shortness of breath pulse ox was 96% Persistent cough and hyperpyrexia of uncertain etiology Plan your medical management and recommendations potentially as above. Past Medical History Past Medical History: No Reported History Additional Past Medical History / Comment(s): herpes History of Any Multi-Drug Resistant Organisms: None Reported Past Surgical History: Section Past Anesthesia/Blood Transfusion Reactions: No Reported Reaction Additional Past Anesthesia/Blood Transfusion Reaction / Comm: NEVER HAS HAD GENERAL ANESTHESIA Smoking Status: Current every day smoker - Past Family History Son(s) Family Medical History: No Reported History Mother Family Medical History: No Reported History Father Additional Family Medical History / Comment(s): "PASSES OUT" PER PT Medications and Allergies Home Medications Medication Instructions Recorded Confirmed Type FLUoxetine HCL [PROzac] 10 mg PO DAILY #14 cap 02/24/18 04/03/18 Rx hydrOXYzine PAMOATE [Vistaril] 25 mg PO Q8HR PRN #15 cap 02/24/18 04/03/18 Rx Allergies Allergy/AdvReac Type Severity Reaction Status Date / Time morphine Allergy Itching Verified 04/03/18 11:47 Exam Osteopathic Statement: *. No significant issues noted on an osteopathic structural exam other than those noted in the History and Physical/Consult. - Vital Signs Vital signs: Vital Signs Temp Pulse Pulse Resp BP BP Pulse Ox 04/03/18 18:08 102.9 F H 128 H 16 105/55 98 04/03/18 17:19 102.7 F H 125 H 16 103/59 97 04/03/18 16:52 18 04/03/18 14:55 101.2 F H 118 H 20 112/58 98 04/03/18 13:00 101.6 F H 115 H 18 100/85 98 04/03/18 12:28 103.6 F H 120 H 18 110/56 97 04/03/18 11:32 102 F H 151 H 18 113/61 95 Intake and Output 04/03/18 04/03/18 04/03/18 06:59 14:59 22:59 Other: Weight 68.492 kg Results Result Diagrams: 04/03/18 12:20 04/03/18 12:20 Abnormal Lab Results - Last 24 Hours (Table) 04/03/18 04/03/18 04/03/18 Range/Units 12:20 12:20 12:20 Plt Count 140 L (150-450) k/uL Neutrophils # 8.8 H (1.3-7.7) k/uL Lymphocytes # 0.5 L (1.0-4.8) k/uL Carbon Dioxide 21 L (22-30) mmol/L Glucose 105 H (74-99) mg/dL Total Bilirubin 1.5 H (0.2-1.3) mg/dL Urine Protein Trace H (Negative) Microbiology - Last 24 Hours (Table) 04/03/18 12:20 Urine Culture - Preliminary Urine,Voided
[2018-04-03] MEDS ORDERED: RX INFO: IV CONTRAST WAS GIVEN 1 EACH MISC MISCELLANE PRN (20:20)
[2018-04-03] MEDS: IBUPROFEN 600 MG TAB PO PRN (20:53)
--- NOTE | 2018-04-03 21:47 | CT ---
EXAMINATION TYPE: CT angio chest with contrast with 3-D Reconstruction rendering. DATE OF EXAM: 04/03/2018 8:52 PM COMPARISON: NONE HISTORY: Elevated d-dimer. Left sided chest pain and cough. CT DLP: 122.2 mGycm. Total DLP 122.2 mGy-cm. Automated exposure control for dose reduction was used. CONTRAST: CTA scan of the thorax is performed with IV Contrast, patient injected with 100 mL of Isovu e 370, pulmonary embolism protocol. 3-D reconstruction renderings were obtained.. FINDINGS: AIRWAYS AND LUNGS AND PLEURAL SPACES: There is dense consolidation throughout the posterior medial ri ght lower lobe, affecting greater than 50% of the right lower lobe with associated air bronchograms. The lungs are otherwise clear and well-expanded bilaterally. There is no pleural effusion or pneumoth orax. The tracheobronchial tree is patent. MEDIASTINUM: There is satisfactory enhancement of the pulmonary artery and its branches, there is no CT evidence for pulmonary embolism. There are no greater than 1 cm hilar or mediastinal lymph nodes. There is no cardiomegaly. No pericardial effusion. OTHER: Splenomegaly is noted, appearing to be [id number] in degree without focal defect. IMPRESSION: 1. NEGATIVE FOR PULMONARY EMBOLISM. 2. DENSE CONSOLIDATION IN THE RIGHT LOWER LOBE CONSISTENT WITH PNEUMONIA. 3. Splenomegaly.
[2018-04-03] MEDS ORDERED: SODIUM CHLORIDE 0.9% 500 ML IV ONE (23:01)
[2018-04-04 00:35] LABS: Basophils % (A) 0 %; Eosinophils % (A) 1 %; HCT 31.9 % (34.0-46.0); HGB 10.6 gm/dL (11.4-16.0); Lymphocytes # (A) 0.7 k/uL (1.0-4.8); Lymphocytes % (A) 15 %; MCH 27.8 pg (25.0-35.0); MCHC 33.4 g/dL (31.0-37.0); MCV 83.3 fL (80.0-100.0); Mean Platelet Volume 8.4; Monocytes # (A) 0.1 k/uL (0-1.0); Monocytes % (A) 3 %; Neutrophils # (A) 3.6 k/uL (1.3-7.7); Neutrophils % (A) 81 %; Platelet Count 108 k/uL (150-450); RBC 3.82 m/uL (3.80-5.40); RDW 13.4 % (11.5-15.5); WBC 4.5 k/uL (4.0-11.0)
[2018-04-04 00:55] LABS: Anion Gap 12 mmol/L; Blood Urea Nitrogen 11 mg/dL (7-17); Carbon Dioxide 19 mmol/L (22-30); Chloride 107 mmol/L (98-107); Glucose 121 mg/dL (74-99); Potassium 3.3 mmol/L (3.5-5.1); Sodium 138 mmol/L (137-145)
[2018-04-04 00:58] LABS: Glucose,Whole Blood 113 mg/dL (75-99)
[2018-04-04 01:37] LABS: ALT 16 U/L (9-52); AST 18 U/L (14-36); Albumin 2.8 g/dL (3.5-5.0); Alkaline Phosphatase 60 U/L (38-126); Total Bilirubin 2.3 mg/dL (0.2-1.3); Total Protein 5.1 g/dL (6.3-8.2)
[2018-04-04] MEDS ORDERED: SODIUM CHLORIDE 0.9% 1,000 ML IV ONE (02:41)
[2018-04-04] MEDS: cefTRIAXone IN SWFI 1,000 MG/10 ML SYRINGE IVP SCH ×2 (03:29→08:14)
[2018-04-04] MEDS: ACETAMINOPHEN TAB 500 MG TAB PO PRN ×3 (03:30→22:56)
[2018-04-04] MEDS: NOREPINEPHRIN 4 MG-0.9% NS PMX 4 MG/250 ML ML IV SCH ×2 (03:38→10:00)
[2018-04-04] MEDS: IBUPROFEN 600 MG TAB PO PRN ×3 (05:32→20:22)
[2018-04-04 05:34] LABS: HCT 34.1 % (34.0-46.0); MCH 27.7 pg (25.0-35.0); MCHC 32.3 g/dL (31.0-37.0); MCV 85.5 fL (80.0-100.0); Mean Platelet Volume 8.6; RBC 3.99 m/uL (3.80-5.40); RDW 13.6 % (11.5-15.5); WBC 6.3 k/uL (4.0-11.0)
[2018-04-04 05:40] LABS: Platelet Count 177 k/uL (150-450)
[2018-04-04 05:54] LABS: ALT 14 U/L (9-52); AST 16 U/L (14-36); Albumin 2.7 g/dL (3.5-5.0); Alkaline Phosphatase 56 U/L (38-126); Anion Gap 14 mmol/L; Blood Urea Nitrogen 11 mg/dL (7-17); Calcium 7.6 mg/dL (8.4-10.2); Carbon Dioxide 15 mmol/L (22-30); Chloride 111 mmol/L (98-107); Glucose 129 mg/dL (74-99); Magnesium 1.3 mg/dL (1.6-2.3); Potassium 3.3 mmol/L (3.5-5.1); Sodium 140 mmol/L (137-145); Total Bilirubin 1.9 mg/dL (0.2-1.3); Total Protein 4.9 g/dL (6.3-8.2); Triglycerides 76 mg/dL (<150)
[2018-04-04 06:04] LABS: HCG,Quantitative Serum 46.5 mIU/mL
[2018-04-04 06:13] LABS: Band Neutrophils % 39 %; Lymphocytes # (M) 0.32 k/uL (1.0-4.8); Monocytes # (M) 0.06 k/uL (0-1.0); Neutrophils % (M) 54 %; Nucleated Red Blood Cells 0 /100 WBC (0-0); Total Cells Counted 200
[2018-04-04 06:16] LABS: Metamyelocytes # (M) 0.13 k/uL (0); Metamyelocytes % 2 %
[2018-04-04] MEDS ORDERED: Magnesium Replacement Protocol 1 EACH MISC MISCELLANE PRN (06:47)
[2018-04-04] MEDS ORDERED: Potassium Replacement Protocol 1 EACH MISC MISCELLANE PRN ×2 (06:48→06:50)
[2018-04-04] MEDS ORDERED: Phosphorus Replacement Protoco 1 EACH MISC MISCELLANE PRN (06:49)
--- NOTE | 2018-04-04 06:50 | XR ---
EXAMINATION TYPE: XR chest 1V DATE OF EXAM: 04/04/2018 HISTORY: pneumonia. REFERENCE: Previous study dated 04/03/2018. FINDINGS: There has developed a left lower lobe infiltrate. The right lung remains clear. The heart i s not enlarged. There is a small left effusion. IMPRESSION: LEFT LOWER LOBE INFILTRATE.
[2018-04-04] MEDS: MAGNESIUM SULFATE-D5W PMX 1 GM in DEXTROSE/WATER 1 100ML.BAG IVPB SCH ×3 (08:00→10:00)
[2018-04-04] MEDS: POTASSIUM CHLORIDE 10 MEQ in WATER FOR INJECTION 1 100ML.BAG IVPB SCH ×2 (08:00→09:00)
--- NOTE | 2018-04-04 09:32 | P.PN ---
Progress Note - Text Progress Note Date: 04/04/18 Patient seen and evaluated. She is currently in the intensive care unit and on Levophed for blood pressure support. Her temperatures have normalized and her pulse has also come down in the interim. She continues to have mild shortness of breath and is on O2 via nasal cannula. I did order an early quantitative beta-hCG and the level essentially remained the same at 46.5. Based on a lack of increase in the hormone level even though it was only about 12 hours I suspect this is nonviable. While I cannot completely state that since it is not been 48 hours I would have fully expected her hormone level to go at least up to 60 or 70 in that time frame. Due to the fact that either this is a nonviable or at the very least a that I certainly can't prove is viable I would treat her as any other patient that is not . Any therapies or medications or radiologic studies that need to be done should be done. We will plan to order a general surgical consultation and likely move forward with a abdominal and pelvic CT to more thoroughly evaluate the appendix as well as the female organs to make sure there is no other findings that could help to explain her symptomatology. It may however be, that she has 2 separate processes with her testing positive for mono, which is making both of these processes worse and also making it less clear as to what exactly is causing her symptoms.
[2018-04-04] MEDS: POTASSIUM PHOSPHATE 10 MMOL in SODIUM CHLORIDE 0.9% 250 ML IV SCH ×2 (10:00→12:00)
[2018-04-04] MEDS: AZITHROMYCIN 500 MG in SODIUM CHLORIDE 0.9% 250 ML IVPB SCH (11:46)
--- NOTE | 2018-04-04 11:46 | P.CNPUL ---
History of Present Illness Consult date: 04/04/18 Reason for consult: dyspnea, cough, hypoxemia, pneumonia, abnormal CXR/CT Chief complaint: Pneumonia History of present illness: Pulmonary consult dated 04/04/2018 This is a 22-year-old female who apparently comes to the emergency room with multiple complaints. She complains of cough and congestion for the last 2 weeks. Chest x-ray clearly shows a left lower lobe infiltrate. The phlegm has some color to it. In addition, she was thought to have possible intrauterine . Apparently does been ruled out by the [employer] doctor. In addition, her appetite has been decreased. She also is complaining of abdominal pain particularly in the left upper quadrant. She apparently was thought to possibly also have mononucleosis. She has got diffuse body aches and muscle aches. Joint aches. She does smoke cigarettes. She does have 2 children at home. She denied any illicit drugs. She has smoked marijuana in the past. The patient had a CT angiogram and that ruled out pulmonary embolism. Her Monospot was positive. Computed tomography scan did show evidence of splenomegaly. I did ask for a random cortisol and she has been hypotensive. This morning she was on norepinephrine at 15 mcg/m. She has received several between 5-6 L of fluid. She's currently on a saline IV at 125 mL an hour. She' s getting nasal O2 at [address] of the abdomen was ordered. Her home medications could just real and Prozac. Review of Systems A 12 point review of system includes cough chest congestion phlegm production as well as decreased appetite muscle aches and body aches. She also complains of abdominal pain particularly in the left upper quadrant. Past Medical History Past Medical History: No Reported History Additional Past Medical History / Comment(s): herpes History of Any Multi-Drug Resistant Organisms: None Reported Past Surgical History: Section Past Anesthesia/Blood Transfusion Reactions: No Reported Reaction Additional Past Anesthesia/Blood Transfusion Reaction / Comment(s): NEVER HAS HAD GENERAL ANESTHESIA Smoking Status: Current every day smoker - Past Family History Son(s) Family Medical History: No Reported History Mother Family Medical History: No Reported History Father Additional Family Medical History / Comment(s): "PASSES OUT" PER PT Medications and Allergies Home Medications Medication Instructions Recorded Confirmed Type FLUoxetine HCL [PROzac] 10 mg PO DAILY #14 cap 02/24/18 04/03/18 Rx hydrOXYzine PAMOATE [Vistaril] 25 mg PO Q8HR PRN #15 cap 02/24/18 04/03/18 Rx Allergies Allergy/AdvReac Type Severity Reaction Status Date / Time morphine Allergy Itching Verified 04/03/18 11:47 Physical Exam Osteopathic Statement: *. No significant issues noted on an osteopathic structural exam other than those noted in the History and Physical/Consult. Vitals: Vital Signs Temp Pulse Pulse Resp BP BP Pulse Ox 04/04/18 11:12 93 24 04/04/18 10:30 101 H 24 96/60 04/04/18 10:00 89 24 101/72 04/04/18 09:30 91 24 94/69 04/04/18 09:00 83 24 85/64 04/04/18 08:30 87 24 84/65 04/04/18 08:00 98.2 F 87 24 81/58 04/04/18 07:30 94 24 81/58 04/04/18 07:00 93 29 H 76/57 04/04/18 06:30 100 33 H 83/62 04/04/18 06:00 103 H 35 H 83/61 04/04/18 05:30 103 H 28 H 80/58 04/04/18 05:00 107 H 31 H 82/49 04/04/18 04:30 101 H 28 H 73/54 04/04/18 04:00 104 H 107 H 31 H 66/51 04/04/18 03:30 108 H 33 H 66/43 04/04/18 03:00 107 H 29 H 60/38 04/04/18 02:30 98.5 F 110 H 28 H 72/45 94 L 04/04/18 02:00 115 H 23 66/47 04/04/18 01:30 118 H 23 76/45 04/04/18 01:00 98.0 F 112 H 26 H 89/49 98 04/04/18 00:57 116 H 89/49 04/04/18 00:30 70/34 04/04/18 00:20 107 H 80/52 04/04/18 00:08 110 H 75/43 95 04/04/18 00:04 110 H 92 L 04/03/18 23:59 64/36 05/04/18 23:35 82/47 04/03/18 22:48 100.1 F H 117 H 20 75/43 92 L 04/03/18 19:53 101.6 F H 125 H 04/03/18 19:10 102.0 F H 135 H 96 04/03/18 18:08 102.9 F H 128 H 16 105/55 98 04/03/18 17:19 102.7 F H 125 H 16 103/59 97 04/03/18 16:52 18 04/03/18 14:55 101.2 F H 118 H 20 112/58 98 04/03/18 13:00 101.6 F H 115 H 18 100/85 98 04/03/18 12:28 103.6 F H 120 H 18 110/56 97 Intake and Output 04/03/18 04/04/18 04/04/18 22:59 06:59 14:59 Intake Total 3250.935 4677 Output Total 110 465 Balance 1285.623 560 Intake: Intake, IV Titration 1663.184 3098 Amount Magnesium Sulfate-D5w Pmx 200 1 gm In Dextrose/Water 1 100ml.bag @ 100 mls/hr IVPB Q1H [facility] Rx#: [id number] Norepinephrin 4 mg-0.9% 20.623 Ns Pmx 4 mg In 250 ml @ Titrate IV .Q0M [facility] Rx#: [id number] Potassium Chloride 10 meq 200 In Water For Injection 1 100ml.bag @ 100 mls/hr IVPB Q1H [facility] Rx#: [id number] Sodium Chloride 0.9% 1, 375 625 000 ml @ 125 mls/hr IV . Q8H [facility] Rx#:[id number] Sodium Chloride 0.9% 1, 1000 000 ml @ 999 mls/hr IV . Q1H1M [facility] Rx#:[id number] Output: Urine 110 465 Other: Voiding Method Indwelling Catheter Indwelling Catheter # Voids 1 1 # Bowel Movements 0 No acute distress, oriented 3. She looks pale. No respiratory distress. HEENT examination is grossly unremarkable. Mucous membranes are moist. No oral lesions. Neck supple. Full range of motion. A few small lymph nodes are noted. They are tender to touch. No thyromegaly. No neck vein distention. Cardiovascular examination reveals regular rhythm rate. S1-S2 normal. No S3 or S4. No discernible murmur noted. Lungs reveal diffuse coarse rhonchi. Breath sounds are diminished. Slight prolongation. A few crackles are noted particularly at the left base. Abdomen soft bowel sounds are heard. No masses. There is tenderness in the left upper quadrant. Extremities are intact. No cyanosis clubbing or edema. Skin is without rash or lesion. Neurologic examination is brief but nonfocal. Results - Laboratory Findings CBC and BMP: 04/04/18 04:48 04/04/18 04:48 PT/INR, D-dimer D-Dimer 0.74 mg/L FEU (<0.60) H 04/03/18 19:30 Abnormal lab findings: Abnormal Labs 04/03/18 04/03/18 04/03/18 12:20 12:20 12:20 Hgb Hct Plt Count 140 L Neutrophils # 8.8 H Lymphocytes # 0.5 L Lymphocytes # (Manual) Metamyelocytes # (Man) D-Dimer Potassium Chloride Carbon Dioxide 21 L Glucose 105 H POC Glucose (mg/dL) Calcium Phosphorus Magnesium Total Bilirubin 1.5 H Total Protein Albumin Urine Protein Trace H 04/03/18 04/04/18 04/04/18 19:30 00:19 00:19 Hgb 10.6 L Hct 31.9 L Plt Count 108 L Neutrophils # Lymphocytes # 0.7 L Lymphocytes # (Manual) Metamyelocytes # (Man) D-Dimer 0.74 H Potassium 3.3 L Chloride Carbon Dioxide 19 L Glucose 121 H POC Glucose (mg/dL) Calcium 8.0 L Phosphorus Magnesium Total Bilirubin 2.3 H Total Protein 5.1 L Albumin 2.8 L Urine Protein 04/04/18 04/04/18 04/04/18 00:56 04:48 04:48 Hgb 11.0 L Hct Plt Count Neutrophils # Lymphocytes # Lymphocytes # (Manual) 0.32 L Metamyelocytes # (Man) 0.13 H D-Dimer Potassium 3.3 L Chloride 111 H Carbon Dioxide 15 L Glucose 129 H POC Glucose (mg/dL) 113 H Calcium 7.6 L Phosphorus 2.0 L Magnesium 1.3 L Total Bilirubin 1.9 H Total Protein 4.9 L Albumin 2.7 L Urine Protein - Diagnostic Findings Chest x-ray: image reviewed CT scan - chest: image reviewed (Chest x-ray, CAT scan, labs and medications are all reviewed.) Assessment and Plan Assessment: Assessment Left lower lobe pneumonia Sepsis with hypotension Possible mononucleosis Splenomegaly, secondary to mononucleosis Mild lactic acidemia Mild anemia Anion gap metabolic acidosis secondary to mild lactic acidosis. Plan: Plan dated 04/04/2018 The patient will be placed on Rocephin and Zithromax for community-acquired pneumonia. There is no specific treatment for mononucleosis. This may or may not be actually going on at this time. In addition, she's received adequate fluid resuscitation. We'll get a stat random cortisol to rule out adrenal insufficiency. In addition, the patient's norepinephrine will be weaned. X- rays labs are reviewed. The computed tomography scan of the chest was missed transcribed or misinterpreted by the radiologist. The consolidation is actually left lower lobe which corresponds to the abnormality seen on the chest x-ray. Hence, the primary processors community acquired left lower lobe pneumonia. Time with Patient: Greater than 30
--- NOTE | 2018-04-04 12:00 | CT ---
EXAMINATION TYPE: CT abdomen pelvis wo con DATE OF EXAM: 04/04/2018 COMPARISON: Previous study dated 08/17/2006. HISTORY: generalized Abdominal pain and increased Left lower chest pain CT DLP: 481.9 mGycm Automated exposure control for dose reduction was used. FINDINGS: There is consolidation at the left lung base. There is associated small effusion. Visualize d portions of the right lung demonstrate atelectatic change at the right lung base. The heart is not enlarged. Within the abdomen, the liver is prominent measuring 21 cm. 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 T here is some contrast within the gallbladder from a recent CT scan of the chest dated 04/03/2018. The s pleen is unremarkable. Both adrenal glands appear normal. There is no evidence of hydronephrosis or nephrolithiasis. The pancreas is not well-visualized. There is a Sandy catheter within the bladder. The uterus is mildly bulky. There is follicular change in the ovaries. There is no evidence of diverticulosis. A large percentage of the colon is collapsed. This makes assessment of colonic wall thickening diffic ult. The appendix is not visualized. Small bowel loops are normal. No free air is identified. There is a small amount of free fluid. No bony lesion is seen. IMPRESSION: 1. LEFT LOWER LOBE PNEUMONIA WITH A SMALL ASSOCIATED EFFUSION. 2. COLLAPSE OF MUCH OF THE COLON. PLEASE CORRELATE TO EXCLUDE COLITIS.
[2018-04-04] MEDS: IPRATROPIUM-ALBUTEROL 3 ML NEB INHALATION SCH ×3 (13:46→20:55)
--- NOTE | 2018-04-04 14:19 | ECHOF ---
Referral Reason:chest pain MEASUREMENTS -------- HEIGHT: 170.2 cm WEIGHT: 68.5 kg BP: IVSd: 0.7 cm (0.6 - 1.1) LVIDd: 4.3 cm (3.9 - 5.3) LVPWd: 0.7 cm (0.6 - 1.1) IVSs: 0.9 cm LVIDs: 4.0 cm LVPWs: 1.0 cm Ao Diam: 3.1 cm (2.0 - 3.7) AV Cusp: 2.2 cm (1.5 - 2.6) LA Diam: 2.1 cm (2.7 - 3.8) MV EXCURSION: 11.236 mm (> 18.000) MV EF SLOPE: 71 mm/s (70 - 150) EPSS: 1.2 cm MV E Emre: 0.70 m/s MV DecT: 153 ms MV A Emre: 0.28 m/s MV E/A Ratio: 2.47 RAP: 20.00 mmHg RVSP: 31.18 mmHg FINDINGS -------- Resting tachycardia (HR>100bpm). This was a technically good study. The left ventricular size is normal. Left ventricular wall thickness is normal. There is severe g lobal hypokinesis of LV . Overall left ventricular systolic function is severely impaired with, an EF between 20 - 25 %. The right ventricle is normal in size and function. The left atrium is normal in size. The right atrium is normal in size. The aortic valve is trileaflet, and appears structurally normal. No aortic stenosis or regurgitation. There is trace mitral regurgitation. Trace tricuspid regurgitation present. The right ventricular systolic pressure, as measured by Dopp ler, is 31.18mmHg. Pulmonic valve appears structurally normal. The aortic root size is normal. The inferior vena cava is dilated with no significant inspiratory collapse which is consistent estima kathie right atrial pressure of >20 mmHg. The pericardium is normal. CONCLUSIONS -------- 1. Resting tachycardia (HR>100bpm). 2. This was a technically good study. 3. The left ventricular size is normal. 4. Left ventricular wall thickness is normal. 5. There is severe global hypokinesis of LV . 6. Overall left ventricular systolic function is severely impaired with, an EF between 20 - 25 %. 7. The right ventricle is normal in size and function. 8. The left atrium is normal in size. 9. The right atrium is normal in size. 10. The aortic valve is trileaflet, and appears structurally normal. No aortic stenosis or regurgitat ion. 11. There is trace mitral regurgitation. 12. Trace tricuspid regurgitation present. 13. The right ventricular systolic pressure, as measured by Doppler, is 31.18mmHg. 14. Pulmonic valve appears structurally normal. 15. The aortic root size is normal. 16. The inferior vena cava is dilated with no significant inspiratory collapse which is consistent es timated right atrial pressure of >20 mmHg. 17. The pericardium is normal. PRODUCT MANAGEMENT MANAGER: Yasmin Marshall RDCS
--- NOTE | 2018-04-04 16:47 | P.HPIM ---
History of Present Illness H&P Date: 04/04/18 Chief Complaint: Cough 2 weeks and abdominal pain Patient is a 22-year-old female with a signal personal history came to also compressed of cough for the past 2 weeks. Patient was also complaining of abdominal pain lower patient came to the hospital. Patient says that she has been having cough with green sputum production. Patient was febrile when she came to the hospital with T-max greater than 103. Patient is having body aches and malaise. Denied any shortness of breath or chest pain. No complains of dizziness or lightheadedness. Patient does have nausea. No vomiting. Patient does have abdominal lower discomfort. No dysuria or hematuria. No hematemesis or melena. D-dimer is 0.[address] exam showed no evidence of PE Beta-hCG 46 on admission ABDOMEN showed solid-appearing lesion left ovary of nonspecific etiology. Follow-up in 66 advised Free fluid seen in the pelvis No evidence of intrauterine at this time. Chest x-ray showed no acute cardio pulmonary process CT of abdomen pelvis showed left lower lobe pneumonia with small associated effusion. Collapsed of much of the colon please correlate to exclude colitis CTA chest showed no evidence of pulmonary embolism. Dense consolidation in the right lower lobe consistent with pneumonia, which is actually left lower lobe. Patient was hypotensive. Tachypneic and tachycardic on admission. Patient was initially requiring pressor support with norepinephrine. WBC is not elevated Influenza negative Heterophile antibody positive Random cortisol 56 Review of Systems Constitutional: Agent does have fever and chills and generalized weakness and malaise. Abdomen: Patient denied nausea vomiting and diarrhea. Patient does have abdominal pain on admission. Cardiovascular: Patient denies any chest pain or short of breath no palpitations. No leg swelling Respiratory: Cough with greenish sputum production and shortness of breath. Neurologic: Patient denied any numbness or tingling headache. Musculoskeletal: Patient denies any complaints of joint swelling or deformity. Skin: Negative Psychiatric: Negative Endocrine: No heat or cold intolerance. No recent weight gain. Genitourinary: No dysuria or hematuria. All other 14 point ROS negative except the above Past Medical History Past Medical History: No Reported History Additional Past Medical History / Comment(s): herpes History of Any Multi-Drug Resistant Organisms: None Reported Past Surgical History: Section Past Anesthesia/Blood Transfusion Reactions: No Reported Reaction Additional Past Anesthesia/Blood Transfusion Reaction / Comment(s): NEVER HAS HAD GENERAL ANESTHESIA Smoking Status: Current every day smoker - Past Family History Son(s) Family Medical History: No Reported History Mother Family Medical History: No Reported History Father Additional Family Medical History / Comment(s): "PASSES OUT" PER PT Medications and Allergies Home Medications Medication Instructions Recorded Confirmed Type FLUoxetine HCL [PROzac] 10 mg PO DAILY #14 cap 02/24/18 04/03/18 Rx hydrOXYzine PAMOATE [Vistaril] 25 mg PO Q8HR PRN #15 cap 02/24/18 04/03/18 Rx Allergies Allergy/AdvReac Type Severity Reaction Status Date / Time morphine Allergy Itching Verified 04/03/18 11:47 Physical Exam Vitals: Vital Signs Temp Pulse Pulse Resp BP BP Pulse Ox 04/04/18 12:00 90 24 85/54 04/04/18 11:30 88 24 90/67 04/04/18 11:12 93 24 04/04/18 10:30 101 H 24 96/60 04/04/18 10:00 89 24 101/72 04/04/18 09:30 91 24 94/69 04/04/18 09:00 83 24 85/64 04/04/18 08:30 87 24 84/65 04/04/18 08:00 98.2 F 87 24 81/58 04/04/18 07:30 94 24 81/58 04/04/18 07:00 93 29 H 76/57 04/04/18 06:30 100 33 H 83/62 04/04/18 06:00 103 H 35 H 83/61 04/04/18 05:30 103 H 28 H 80/58 04/04/18 05:00 107 H 31 H 82/49 04/04/18 04:30 101 H 28 H 73/54 04/04/18 04:00 104 H 107 H 31 H 66/51 04/04/18 03:30 108 H 33 H 66/43 04/04/18 03:00 107 H 29 H 60/38 04/04/18 02:30 98.5 F 110 H 28 H 72/45 94 L 04/04/18 02:00 115 H 23 66/47 04/04/18 01:30 118 H 23 76/45 04/04/18 01:00 98.0 F 112 H 26 H 89/49 98 04/04/18 00:57 116 H 89/49 04/04/18 00:30 70/34 04/04/18 00:20 107 H 80/52 04/04/18 00:08 110 H 75/43 95 04/04/18 00:04 110 H 92 L 04/03/18 23:59 64/36 04/03/18 23:35 82/47 04/03/18 22:48 100.1 F H 117 H 20 75/43 92 L 04/03/18 19:53 101.6 F H 125 H 04/03/18 19:10 102.0 F H 135 H 96 04/03/18 18:08 102.9 F H 128 H 16 105/55 98 04/03/18 17:19 102.7 F H 125 H 16 103/59 97 04/03/18 16:52 18 04/03/18 14:55 101.2 F H 118 H 20 112/58 98 04/03/18 13:00 101.6 F H 115 H 18 100/85 98 Intake and Output 04/03/18 04/04/18 04/04/18 22:59 06:59 14:59 Intake Total 7311.791 5509 Output Total 110 640 Balance 1285.623 635 Intake: Intake, IV Titration 8737.373 7241 Amount Azithromycin 500 mg In 250 Sodium Chloride 0.9% 250 ml @ 125 mls/hr IVPB DAILY [facility] Rx#:[id number] Magnesium Sulfate-D5w Pmx 200 1 gm In Dextrose/Water 1 100ml.bag @ 100 mls/hr IVPB Q1H [facility] Rx#: [id number] Norepinephrin 4 mg-0.9% 20.623 Ns Pmx 4 mg In 250 ml @ Titrate IV .Q0M [facility] Rx#: [id number] Potassium Chloride 10 meq 200 In Water For Injection 1 100ml.bag @ 100 mls/hr IVPB Q1H [facility] Rx#: [id number] Sodium Chloride 0.9% 1, 375 625 000 ml @ 125 mls/hr IV . Q8H [facility] Rx#:[id number] Sodium Chloride 0.9% 1, 1000 000 ml @ 999 mls/hr IV . Q1H1M [facility] Rx#:[id number] Output: Urine 110 640 Other: Voiding Method Indwelling Catheter Indwelling Catheter # Voids 1 1 # Bowel Movements 0 PHYSICAL EXAMINATION: Patient is lying in the bed comfortably, mild distress, awake alert and oriented.. HEENT: Normocephalic. Neck is supple. Pupils reactive. Nostrils clear. Oral cavity is moist. Ears reveal no drainage. Neck reveals no JVD, carotid bruits, or thyromegaly. CHEST EXAMINATION: Trachea is central. Symmetrical expansion. Bilateral diffuse rhonchi and basilar crackles bilaterally CARDIAC: Normal S1, S2 with no gallops. No murmurs ABDOMEN: Soft. Bowel sounds normal. No organomegaly. No abdominal bruits. Extremities: reveal no edema. No clubbing or cyanosis Neurologically awake, alert, oriented x3 with well-coordinated movements. No focal deficits noted Skin: No rash or skin lesions. Psychiatric: Cooperative. Nonsuicidal Musculoskeletal: No joint swelling or deformity. Normal range of motion. Results CBC & Chem 7: 04/04/18 04:48 04/04/18 04:48 Labs: Abnormal Lab Results - Last 24 Hours (Table) 04/03/18 04/03/18 04/03/18 Range/Units 12:20 12:20 19:30 Hgb (11.4-16.0) gm/dL Hct (34.0-46.0) % Plt Count 140 L (150-450) k/uL Neutrophils # 8.8 H (1.3-7.7) k/uL Lymphocytes # 0.5 L (1.0-4.8) k/uL Lymphocytes # (Manual) (1.0-4.8) k/uL Metamyelocytes # (Man) (0) k/uL D-Dimer 0.74 H (<0.60) mg/L FEU Potassium (3.5-5.1) mmol/L Chloride (98-107) mmol/L Carbon Dioxide 21 L (22-30) mmol/L Glucose 105 H (74-99) mg/dL POC Glucose (mg/dL) (75-99) mg/dL Calcium (8.4-10.2) mg/dL Phosphorus (2.5-4.5) mg/dL Magnesium (1.6-2.3) mg/dL Total Bilirubin 1.5 H (0.2-1.3) mg/dL Total Protein (6.3-8.2) g/dL Albumin (3.5-5.0) g/dL 04/04/18 04/04/18 04/04/18 Range/Units 00:19 00:19 00:56 Hgb 10.6 L (11.4-16.0) gm/dL Hct 31.9 L (34.0-46.0) % Plt Count 108 L (150-450) k/uL Neutrophils # (1.3-7.7) k/uL Lymphocytes # 0.7 L (1.0-4.8) k/uL Lymphocytes # (Manual) (1.0-4.8) k/uL Metamyelocytes # (Man) (0) k/uL D-Dimer (<0.60) mg/L FEU Potassium 3.3 L (3.5-5.1) mmol/L Chloride (98-107) mmol/L Carbon Dioxide 19 L (22-30) mmol/L Glucose 121 H (74-99) mg/dL POC Glucose (mg/dL) 113 H (75-99) mg/dL Calcium 8.0 L (8.4-10.2) mg/dL Phosphorus (2.5-4.5) mg/dL Magnesium (1.6-2.3) mg/dL Total Bilirubin 2.3 H (0.2-1.3) mg/dL Total Protein 5.1 L (6.3-8.2) g/dL Albumin 2.8 L (3.5-5.0) g/dL 04/04/18 04/04/18 Range/Units 04:48 04:48 Hgb 11.0 L (11.4-16.0) gm/dL Hct (34.0-46.0) % Plt Count (150-450) k/uL Neutrophils # (1.3-7.7) k/uL Lymphocytes # (1.0-4.8) k/uL Lymphocytes # (Manual) 0.32 L (1.0-4.8) k/uL Metamyelocytes # (Man) 0.13 H (0) k/uL D-Dimer (<0.60) mg/L FEU Potassium 3.3 L (3.5-5.1) mmol/L Chloride 111 H (98-107) mmol/L Carbon Dioxide 15 L (22-30) mmol/L Glucose 129 H (74-99) mg/dL POC Glucose (mg/dL) (75-99) mg/dL Calcium 7.6 L (8.4-10.2) mg/dL Phosphorus 2.0 L (2.5-4.5) mg/dL Magnesium 1.3 L (1.6-2.3) mg/dL Total Bilirubin 1.9 H (0.2-1.3) mg/dL Total Protein 4.9 L (6.3-8.2) g/dL Albumin 2.7 L (3.5-5.0) g/dL Microbiology - Last 24 Hours (Table) 04/03/18 12:20 Urine Culture - Preliminary Urine,Voided Thrombosis Risk Factor Assmnt - DVT/VTE Prophylaxis DVT/VTE Prophylaxis: Pharmacologic Prophylaxis ordered Assessment and Plan Assessment: Left lower lobe pneumonia Sepsis/septic shock on admission requiring pressor support and fluid boluses. Hypokalemia and hypomagnesemia Infectious mononucleosis Splenomegaly Mild and Metabolic acidosis. Secondary to lactic acidosis Slightly elevated beta-hCG. Not trending up. Unlikely viable intrauterine . Ultrasound of the abdomen showed no evidence of intrauterine Plan: Patient be continued on antibiotics in the form of ceftriaxone and azithromycin. Continue with IV hydration and follow closely. Pulmonary and OB/ SCALE CLERK is following. Continue to monitor the patient ICU and further conditions based on the clinical course. Time with Patient: Greater than 30
[2018-04-04 17:53] LABS: Urine Alcohol Negative (Negative); Urine Barbiturate Negative (Negative); Urine Cocaine Negative (Negative); Urine Methadone Negative (Negative); Urine Opiates Negative (Negative); Urine Phencyclidine Negative (Negative)
--- NOTE | 2018-04-04 21:33 | CONS ---
CONSULTATION Criss López is a 26-year-old female who is seen for cardiac evaluation. The patient's medical records were reviewed. Patient is admitted to the emergency room with a complaint of cough and congestion and fever. Patient is currently being treated for pneumonia sinus tachycardia PAST MEDICAL HISTORY: HEENT is negative. . The PMI is not felt. First and second heart sounds FINAL IMPRESSION: This patient is currently being treated for pneumonia with sepsis. The patient has significant hypotension requiring Levophed. Patient's EKGs and cardiac enzymes are normal. The patient's pain is not cardiac. We will evaluate the patient with echo and Doppler study. MMODL / IJN: [id number] /
--- NOTE | 2018-04-05 00:19 | P.CONS ---
History of Present Illness - Reason for Consult Consult date: 04/04/18 - Chief Complaint abdominal pain - History of Present Illness 22-year-old female presents to the emergency center after recent evaluation by her supervisor compounding and finishing. She was having abdominal pain and there is evidence of a positive test. The patient continued to worsen and she gets to the inferior with chill but no rigor, her abdominal pain worsened and she presented to the emergency center. Evaluations performed including a transvaginal ultrasound without evidence of acute disease state. Evaluation of her was also performed and no intrauterine was noted. The patient has had 2 serum tests that were at about the same level. With ongoing the level should've increased and with loss of should have gone down. If this time the patient is now afebrile although he had a high-grade fever at admission. Feeling considerably better than playing a board game with her boyfriend, and only sexual partner. She was hypotensive requiring vasopressor therapy and is now off of vasopressor and feeling somewhat better. She is a thin young woman in it's unclear what her baseline blood pressure is. Currently he is certainly doing better and is regaining her appetite. Review of Systems HEENT:Denies headache or acute visual change. Denies sinus or mouth discomforts. Denies neck stiffness or pain. Denies significant oral cavity pain. Denies difficulty on swallowing. Lungs: Denies significant shortness of breath, cough, sputum production, or hemoptysis. Cardiovascular: Denies significant shortness of breath, chest pain, chest wall pain, orthopnea, dyspnea on exertion, syncope Gastrointestinal: Maure[place] poorly admission with abdominal pain with some nausea but no hematemesis, melena, hematochezia. Loose stool was noted. Musculoskeletal: denies significant myalgias or arthralgias. No new joint swelling. Denies new back pain. Skin: Denies new rash or lesions. No new ulcers or wounds are related.. Neuro:had headache but no visual change. Denies any new onset weakness or difficulty with ambulation. Denies falls or seizures. Psychiatric:positive anxiety, no depression. Endocrine: positive significant fatigue, denies significant weight loss or weight gain. for Past Medical History Past Medical History: No Reported History Additional Past Medical History / Comment(s): herpes History of Any Multi-Drug Resistant Organisms: None Reported Past Surgical History: Section Past Anesthesia/Blood Transfusion Reactions: No Reported Reaction Additional Past Anesthesia/Blood Transfusion Reaction / Comm: NEVER HAS HAD GENERAL ANESTHESIA Additional Psychological History / Comment(s): single but has boyfriend and sexual partner. no travel. 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 no animal exposures Smoking Status: Current every day smoker - Past Family History Son(s) Family Medical History: No Reported History Mother Family Medical History: No Reported History Father Additional Family Medical History / Comment(s): "PASSES OUT" PER PT Medications and Allergies Home Medications and Allergies Comment(s): Current Medications Acetaminophen (Tylenol Tab) 1,000 mg PO Q6HR PRN PRN Reason: Mild Pain or Fever > 100.5 Last Admin: 04/04/18 22:56 Dose: 1,000 mg Albuterol/Ipratropium (Duoneb 0.5 Mg-3 Mg/3 Ml Soln) 3 ml INHALATION RT-QID [facility] Last Admin: 04/04/18 20:55 Dose: 3 ml Ceftriaxone Sodium (Rocephin) 1,000 mg IVP Q24HR [facility] Last Admin: 04/04/18 08:14 Dose: Not Given Norepinephrine Bitartrate (Levophed-0.9% Nacl 4 Mg/250ml Pmx) 4 mg in 250 mls @ 0 mls/hr IV .Q0M [facility]; Titrate PRN Reason: Protocol Last Titration: 04/04/18 23:15 Dose: 4 mcg/min, 15 mls/hr Azithromycin 500 mg/ Sodium (Chloride) 250 mls @ 125 mls/hr IVPB DAILY [facility] Last Admin: 04/04/18 11:46 Dose: 125 mls/hr Ibuprofen (Motrin) 600 mg PO Q6HR PRN PRN Reason: Pain or Fever > 100.5 Last Admin: 04/04/18 20:22 Dose: 600 mg Miscellaneous Information (Rx Info: Iv Contrast Was Given) 1 each MISCELLANE DAILY PRN PRN Reason: Per Protocol Stop: 04/05/18 20:21 Miscellaneous Information (Magnesium Per Protocol) 1 each MISCELLANE DAILY PRN ; Protocol PRN Reason: Per Protocol Miscellaneous Information (Potassium Per Protocol) 1 each MISCELLANE DAILY PRN ; Protocol PRN Reason: Per Protocol Miscellaneous Information (Phosphorus Per Protocol) 1 each MISCELLANE DAILY PRN ; Protocol PRN Reason: Per Protocol Miscellaneous Information (Potassium Per Protocol) 1 each MISCELLANE DAILY PRN ; Protocol PRN Reason: Per Protocol Naloxone HCl (Narcan) 0.2 mg IV Q2M PRN PRN Reason: Opioid Reversal Home Medications Medication Instructions Recorded Confirmed Type FLUoxetine HCL [PROzac] 10 mg PO DAILY #14 cap 02/24/18 04/03/18 Rx hydrOXYzine PAMOATE [Vistaril] 25 mg PO Q8HR PRN #15 cap 02/24/18 04/03/18 Rx Allergies Allergy/AdvReac Type Severity Reaction Status Date / Time morphine Allergy Itching Verified 04/03/18 11:47 Physical Exam Vitals: Vital Signs Temp Pulse Pulse Resp BP BP Pulse Ox 04/04/18 23:30 93 22 86/51 04/04/18 23:15 90 20 86/51 04/04/18 23:00 95 26 H 94/62 04/04/18 22:45 91 22 86/54 04/04/18 22:30 107 H 26 H 93/51 04/04/18 22:15 113 H 27 H 94/51 04/04/18 22:00 114 H 27 H 98/55 98 04/04/18 21:12 96 04/04/18 21:00 102 H 26 H 104/65 97 04/04/18 20:55 93 04/04/18 20:00 98.3 F 90 26 H 95/63 100 04/04/18 19:00 91 24 92/59 04/04/18 18:30 96 24 85/55 04/04/18 18:00 98.2 F 93 24 85/63 04/04/18 17:30 100 24 85/63 04/04/18 17:00 94 24 97/52 04/04/18 16:50 100 04/04/18 16:30 96 24 97/62 04/04/18 16:00 96 24 91/65 96 04/04/18 15:30 87 39 H 91/60 04/04/18 15:00 90 24 96/66 04/04/18 14:30 91 24 96/66 04/04/18 14:00 91 22 85/60 04/04/18 13:30 91 24 85/68 04/04/18 13:00 90 24 83/67 05/05/18 12:30 88 24 89/64 0518 12:00 90 24 85/54 04/04/18 11:30 88 24 90/67 04/04/18 11:12 93 24 18 10:30 101 H 24 96/60 18 10:00 89 24 101/72 18 09:30 91 24 94/69 18 09:00 83 24 85/64 04/04/18 08:30 87 24 84/65 04/04/18 08:00 98.2 F 87 24 81/58 04/04/18 07:30 94 24 81/58 18 07:00 93 29 H 76/57 04/04/18 06:30 100 33 H 83/62 04/04/18 06:00 103 H 35 H 83/61 04/04/18 05:30 103 H 28 H 80/58 04/04/18 05:00 107 H 31 H 82/49 04/04/18 04:30 101 H 28 H 73/54 04/04/18 04:00 104 H 107 H 31 H 66/51 04/04/18 03:30 108 H 33 H 66/43 050518 03:00 107 H 29 H 60/38 04/04/18 02:30 98.5 F 110 H 28 H 72/45 94 L 04/04/18 02:00 115 H 23 66/47 0518 01:30 118 H 23 76/45 18 01:00 98.0 F 112 H 26 H 89/49 98 04/04/18 00:57 116 H 89/49 04/04/18 00:30 70/34 04/04/18 00:20 107 H 80/52 04/04/18 00:08 110 H 75/43 95 0518 00:04 110 H 92 L 04/03/18 23:59 64/36 Intake and Output 04/04/18 04/04/18 04/05/18 14:59 22:59 06:59 Intake Total 4918.539 2110.625 144.125 Output Total 840 Balance 095.304 2893.625 144.125 Intake: IV 375 125 Sodium Chloride 0.9% 1, 375 125 000 ml @ 125 mls/hr IV . Q8H [facility] Rx#:[id number] Intake, IV Titration 1756.877 660.625 19.125 Amount Azithromycin 500 mg In 250 Sodium Chloride 0.9% 250 ml @ 125 mls/hr IVPB DAILY [facility] Rx#:[id number] Magnesium Sulfate-D5w Pmx 200 1 gm In Dextrose/Water 1 100ml.bag @ 100 mls/hr IVPB Q1H [facility] Rx#: [id number] Norepinephrin 4 mg-0.9% 356.877 35.625 19.125 Ns Pmx 4 mg In 250 ml @ Titrate IV .Q0M [facility] Rx#: [id number] Potassium Chloride 10 meq 200 In Water For Injection 1 100ml.bag @ 100 mls/hr IVPB Q1H [facility] Rx#: [id number] Sodium Chloride 0.9% 1, 750 625 000 ml @ 125 mls/hr IV . Q8H [facility] Rx#:[id number] Output: Urine 840 Other: Voiding Method Indwelling Catheter Toilet # Voids 1 1 pleasnt 22 year old woman felling better but still with HEENT: Anicteric conjunctiva are pink and moist nasal mucosa grossly intact without significant lesions, there is no thrush. Neck: The neck is supple without significant lymphadenopathy or thyromegaly. Lungs: Good bilateral air entry without significant crackles or wheezing. positive bronchial sounds at left base positive egophony no dullness Heart: Regular rate and rhythm with an audible S1-S2, no S3 no S4. There is no significant murmur click or rub, PMI was nondisplaced. Abdomen: Positive bowel sounds soft and tender of both upper quadrants without palpable masses or organomegaly. There was no guarding or rebound. Extremities: The upper extremities have excellent pulses they are symmetric, no significant petechiae or telangiectasia. No splinter hemorrhages were noted. The lower extremities are free from significant edema. The peripheral pulses were 2+ and symmetric. Neuro: Awake alert oriented to person place and time. There are no acute new gross focal sensory motor deficits. Results CBC & Chem 7: 04/04/18 04:48 04/04/18 04:48 Labs: Abnormal Lab Results - Last 24 Hours (Table) 04/04/18 04/04/18 04/04/18 Range/Units 00:19 00:19 00:56 Hgb 10.6 L (11.4-16.0) gm/dL Hct 31.9 L (34.0-46.0) % Plt Count 108 L (150-450) k/uL Lymphocytes # 0.7 L (1.0-4.8) k/uL Lymphocytes # (Manual) (1.0-4.8) k/uL Metamyelocytes # (Man) (0) k/uL Potassium 3.3 L (3.5-5.1) mmol/L Chloride (98-107) mmol/L Carbon Dioxide 19 L (22-30) mmol/L Glucose 121 H (74-99) mg/dL POC Glucose (mg/dL) 113 H (75-99) mg/dL Calcium 8.0 L (8.4-10.2) mg/dL Phosphorus (2.5-4.5) mg/dL Magnesium (1.6-2.3) mg/dL Total Bilirubin 2.3 H (0.2-1.3) mg/dL Total Protein 5.1 L (6.3-8.2) g/dL Albumin 2.8 L (3.5-5.0) g/dL 04/04/18 04/04/18 Range/Units 04:48 04:48 Hgb 11.0 L (11.4-16.0) gm/dL Hct (34.0-46.0) % Plt Count (150-450) k/uL Lymphocytes # (1.0-4.8) k/uL Lymphocytes # (Manual) 0.32 L (1.0-4.8) k/uL Metamyelocytes # (Man) 0.13 H (0) k/uL Potassium 3.3 L (3.5-5.1) mmol/L Chloride 111 H (98-107) mmol/L Carbon Dioxide 15 L (22-30) mmol/L Glucose 129 H (74-99) mg/dL POC Glucose (mg/dL) (75-99) mg/dL Calcium 7.6 L (8.4-10.2) mg/dL Phosphorus 2.0 L (2.5-4.5) mg/dL Magnesium 1.3 L (1.6-2.3) mg/dL Total Bilirubin 1.9 H (0.2-1.3) mg/dL Total Protein 4.9 L (6.3-8.2) g/dL Albumin 2.7 L (3.5-5.0) g/dL Microbiology - Last 24 Hours (Table) 04/03/18 12:20 Urine Culture - Preliminary Urine,Voided Coagulase Negative Staph 04/03/18 12:20 Blood Culture - Preliminary Blood No Growth after 24 hours Laboratory Results WBC 6.3 k/uL (4.0-11.0) 04/04/18 04:48 RBC 3.99 m/uL (3.80-5.40) 04/04/18 04:48 Hgb 11.0 gm/dL (11.4-16.0) L 04/04/18 04:48 Hct 34.1 % (34.0-46.0) 04/04/18 04:48 MCV 85.5 fL (80.0-100.0) 04/04/18 04:48 MCH 27.7 pg (25.0-35.0) 04/04/18 04:48 MCHC 32.3 g/dL (31.0-37.0) 04/04/18 04:48 RDW 13.6 % (11.5-15.5) 04/04/18 04:48 Plt Count 177 k/uL (150-450) D 04/04/18 04:48 Neutrophils % 81 % 04/04/18 00:19 Neutrophils % (Manual) 54 % 04/04/18 04:48 Band Neutrophils % 39 % 04/04/18 04:48 Lymphocytes % 15 % 04/04/18 00:19 Lymphocytes % (Manual) 5 % 04/04/18 04:48 Monocytes % 3 % 04/04/18 00:19 Monocytes % (Manual) 1 % 04/04/18 04:48 Eosinophils % 1 % 04/04/18 00:19 Basophils % 0 % 04/04/18 00:19 Metamyelocytes % 2 % 04/04/18 04:48 Neutrophils # 3.6 k/uL (1.3-7.7) 04/04/18 00:19 Neutrophils # (Manual) 5.80 k/uL (1.3-7.7) 04/04/18 04:48 Lymphocytes # 0.7 k/uL (1.0-4.8) L 04/04/18 00:19 Lymphocytes # (Manual) 0.32 k/uL (1.0-4.8) L 04/04/18 04:48 Monocytes # 0.1 k/uL (0-1.0) 04/04/18 00:19 Monocytes # (Manual) 0.06 k/uL (0-1.0) 04/04/18 04:48 Eosinophils # 0.0 k/uL (0-0.7) 04/04/18 00:19 Basophils # 0.0 k/uL (0-0.2) 04/04/18 00:19 Metamyelocytes # (Man) 0.13 k/uL (0) H 04/04/18 04:48 Myelocytes # (Manual) 0.00 k/uL (0) 04/04/18 04:48 Nucleated RBCs 0 /100 WBC (0-0) 04/04/18 04:48 Manual Slide Review Performed 04/04/18 04:48 Fibrinogen 448 mg/dL (200-500) 04/04/18 04:48 D-Dimer 0.74 mg/L FEU (<0.60) H 04/03/18 19:30 Sodium 140 mmol/L (137-145) 04/04/18 04:48 Potassium 3.3 mmol/L (3.5-5.1) L 04/04/18 04:48 Chloride 111 mmol/L (98-107) H 04/04/18 04:48 Carbon Dioxide 15 mmol/L (22-30) L 04/04/18 04:48 Anion Gap 14 mmol/L 04/04/18 04:48 BUN 11 mg/dL (7-17) 04/04/18 04:48 Creatinine 0.70 mg/dL (0.52-1.04) 04/04/18 04:48 Est GFR (CKD-EPI)AfAm >90 (>60 ml/min/1.73 sqM) 04/04/18 04:48 Est GFR (CKD-EPI)NonAf >90 (>60 ml/min/1.73 sqM) 04/04/18 04:48 Glucose 129 mg/dL (74-99) H 04/04/18 04:48 POC Glucose (mg/dL) 113 mg/dL (75-99) H 04/04/18 00:56 POC Glu Neurology Tech ID Connie Zuluaga 04/04/18 00:56 Plasma Lactic Acid [place] 2.0 mmol/L (0.7-2.0) 04/04/18 00:19 Calcium 7.6 mg/dL (8.4-10.2) L 04/04/18 04:48 Phosphorus 2.0 mg/dL (2.5-4.5) L 04/04/18 04:48 Magnesium 1.3 mg/dL (1.6-2.3) L 04/04/18 04:48 Ferritin 67.4 ng/mL (10.0-291.0) 04/04/18 04:48 Total Bilirubin 1.9 mg/dL (0.2-1.3) H 04/04/18 04:48 AST 16 U/L (14-36) 04/04/18 04:48 ALT 14 U/L (9-52) 04/04/18 04:48 Alkaline Phosphatase 56 U/L (38-126) 04/04/18 04:48 Troponin I <0.012 ng/mL (0.000-0.034) 04/04/18 04:48 Total Protein 4.9 g/dL (6.3-8.2) L 04/04/18 04:48 Albumin 2.7 g/dL (3.5-5.0) L 04/04/18 04:48 Triglycerides 76 mg/dL (<150) 04/04/18 04:48 Amylase 42 U/L (30-110) 04/03/18 12:20 Lipase 31 U/L (23-300) 04/03/18 12:20 HCG, Quant 46.5 mIU/mL 04/04/18 04:48 Cortisol 56 ug/dL 04/04/18 04:48 Urine Color Yellow 04/03/18 12:20 Urine Appearance Clear (Clear) 04/03/18 12:20 Urine pH 7.0 (5.0-8.0) 04/03/18 12:20 Ur Specific [place] 1.019 (1.001-1.035) 04/03/18 12:20 Urine Protein Trace (Negative) H 04/03/18 12:20 Urine Glucose (UA) Negative (Negative) 04/03/18 12:20 Urine Ketones Negative (Negative) 04/03/18 12:20 Urine Blood Negative (Negative) 04/03/18 12:20 Urine Nitrite Negative (Negative) 04/03/18 12:20 Urine Bilirubin Negative (Negative) 04/03/18 12:20 Urine Urobilinogen 2.0 mg/dL (<2.0) 04/03/18 12:20 Ur Leukocyte Esterase Negative (Negative) 04/03/18 12:20 Urine HCG, Qual Detected (Not Detectd) 04/03/18 12:20 Heterophile Antibody Positive (Negative) 04/04/18 00:19 Influenza Type A RNA Not Detected (Not Detectd) 04/03/18 15:20 Influenza Type B (PCR) Not Detected (Not Detectd) 04/03/18 15:20 Microbiology 04/03/18 12:20 Urine,Voided Urine Culture - Preliminary Coagulase Negative Staph 04/03/18 12:20 Blood Blood Culture - Preliminary No Growth after 24 hours Assessment and Plan (1) Positive test Current Visit: Yes Status: Acute Code(s): Z32.01 - ENCOUNTER FOR TEST, RESULT POSITIVE SNOMED Code(s): 832963850 (2) EBV infection Current Visit: Yes Status: Acute Code(s): B27.90 - INFECTIOUS MONONUCLEOSIS , UNSPECIFIED WITHOUT COMPLICATION SNOMED Code(s): 114614939 (3) LLL pneumonia Narrative/Plan: 22 year old woman who was seen by photographs curator for ABD pain and was found to have positive test, and with the pain was admitted and has had testing including transvaginal US without evidence of pathology. US failed to reveal IUP. Pateint now feeling better and hypotension has improved off of levophed. Is improving but anxious. Informed that if EBV is confirmed then likely false positive test from the viral infection. Does have new LLL pneumonia and current antibiotic therapy is adequate. Patient and boyfriends questions answered. Current Visit: Yes Status: Acute Code(s): J18.1 - LOBAR PNEUMONIA, UNSPECIFIED ORGANISM SNOMED Code(s): 828002005
[2018-04-05] MEDS: NOREPINEPHRIN 4 MG-0.9% NS PMX 4 MG/250 ML ML IV SCH ×2 (00:58→07:47)
[2018-04-05 03:37] LABS: Basophils % (A) 0 %; Eosinophils # (A) 0.1 k/uL (0-0.7); Eosinophils % (A) 1 %; HCT 28.5 % (34.0-46.0); HGB 9.7 gm/dL (11.4-16.0); Lymphocytes # (A) 1.6 k/uL (1.0-4.8); Lymphocytes % (A) 14 %; MCH 28.8 pg (25.0-35.0); MCHC 34.1 g/dL (31.0-37.0); MCV 84.4 fL (80.0-100.0); Mean Platelet Volume 7.9; Monocytes # (A) 0.3 k/uL (0-1.0); Monocytes % (A) 3 %; Neutrophils # (A) 9.5 k/uL (1.3-7.7); Neutrophils % (A) 81 %; Platelet Count 153 k/uL (150-450); RBC 3.38 m/uL (3.80-5.40); RDW 13.7 % (11.5-15.5); WBC 11.7 k/uL (4.0-11.0)
[2018-04-05 03:44] LABS: Anion Gap 11 mmol/L; Blood Urea Nitrogen 12 mg/dL (7-17); Calcium 7.9 mg/dL (8.4-10.2); Carbon Dioxide 16 mmol/L (22-30); Chloride 115 mmol/L (98-107); Glucose 121 mg/dL (74-99); Magnesium 2.4 mg/dL (1.6-2.3); Phosphorus 1.8 mg/dL (2.5-4.5); Potassium 3.6 mmol/L (3.5-5.1); Sodium 142 mmol/L (137-145)
[2018-04-05] MEDS ORDERED: POTASSIUM CHLORIDE ER 20 MEQ TAB.ER PO SCH (06:00)
[2018-04-05] MEDS: POTASSIUM PHOSPHATE 10 MMOL in SODIUM CHLORIDE 0.9% 250 ML IV SCH ×2 (06:47→10:00)
[2018-04-05] MEDS: ACETAMINOPHEN TAB 500 MG TAB PO PRN ×2 (06:47→21:06)
--- NOTE | 2018-04-05 07:09 | XR ---
EXAMINATION TYPE: XR chest 1V DATE OF EXAM: 04/05/2018 HISTORY: pneumonia. REFERENCE: Previous study dated 04/04/2018. FINDINGS: There continues to BE left lower lobe airspace disease. There may be developing a small rig ht basilar infiltrate. There is a left-sided effusion. The heart is not enlarged. IMPRESSION: 1. CONTINUING LEFT BASILAR AIRSPACE DISEASE. 2. I CANNOT EXCLUDE AN EARLY RIGHT BASILAR INFILTRATE. 3. LEFT-SIDED EFFUSION.
[2018-04-05] MEDS: IPRATROPIUM-ALBUTEROL 3 ML NEB INHALATION SCH ×4 (07:43→19:30)
[2018-04-05] MEDS: cefTRIAXone IN SWFI 1,000 MG/10 ML SYRINGE IVP SCH (08:18)
[2018-04-05] MEDS: AZITHROMYCIN 500 MG in SODIUM CHLORIDE 0.9% 250 ML IVPB SCH (08:37)
[2018-04-05] MEDS ORDERED: AZITHROMYCIN 500 MG in SODIUM CHLORIDE 0.9% 250 ML IVPB SCH (09:00)
--- NOTE | 2018-04-05 09:40 | P.PN ---
Subjective Progress Note Date: 04/05/18 Principal diagnosis: Mononucleosis and left lower lobe pneumonia Progress note dated 04/05/2018 This is a 22-year-old female seen yesterday in consultation for a left lower lobe pneumonia possible sepsis and possible acute mononucleosis. The patient's heterophile agglutination titer was positive. She had splenomegaly on computed tomography scan. She came in complaining with a multitude of symptoms including 2 weeks with body aches joint aches muscle aches slight temperature elevation cough chest congestion shortness of breath phlegm production and pain in the left upper quadrant of the abdomen. The patient initially was thought to be but that has been ruled out by the [employer]ICIAN physician. She is feeling better today. Was on norepinephrine at 15 mics per minute but that has been weaned off. Has received quite a bit of fluid. Breathing has improved. Less short of breath. The patient has smoked cigarettes in the past and has used marijuana in the past. Denies any of those 2 things to excess. Otherwise healthy. Only uses Prozac and Vistaril at home. Objective - Vital Signs Vital signs: Vital Signs Temp 98.9 F 04/05/18 00:00 Pulse 98 04/05/18 09:00 Resp 20 04/05/18 09:00 BP 97/58 04/05/18 09:00 Pulse Ox 98 04/05/18 04:00 Intake & Output 04/04/18 04/05/18 04/05/18 18:59 06:59 18:59 Intake Total 2292.502 1763.250 160.313 Output Total 840 Balance 7941.469 0084.250 160.313 Weight 71.8 kg Intake: IV 1375 125 Sodium Chloride 0.9% 1, 1375 125 000 ml @ 125 mls/hr IV . Q8H [facility] Rx#:[id number] Intake, IV Titration 2292.502 388.250 35.313 Amount Azithromycin 500 mg In 250 Sodium Chloride 0.9% 250 ml @ 125 mls/hr IVPB DAILY [facility] Rx#:[id number] Magnesium Sulfate-D5w Pmx 200 1 gm In Dextrose/Water 1 100ml.bag @ 100 mls/hr IVPB Q1H [facility] Rx#: [id number] Norepinephrin 4 mg-0.9% 392.502 263.250 35.313 Ns Pmx 4 mg In 250 ml @ Titrate IV .Q0M [facility] Rx#: [id number] Potassium Chloride 10 meq 200 In Water For Injection 1 100ml.bag @ 100 mls/hr IVPB Q1H [facility] Rx#: [id number] Sodium Chloride 0.9% 1, 1250 125 000 ml @ 125 mls/hr IV . Q8H [facility] Rx#:[id number] Output: Urine 840 Other: Voiding Method Toilet Toilet Toilet # Voids 1 0 0 - Exam No acute distress, oriented 3. Nasal O2 in place. HEENT examination is grossly unremarkable. Mucous membranes are moist. No oral lesions. Neck supple. Full range of motion. No adenopathy thyromegaly or neck vein distention. Cardiovascular examination reveals regular rhythm rate. S1-S2 normal. No S3 or S4. No discernible murmur noted. Lungs reveal coarse bilateral rhonchi. Breath sounds are diminished. The patient sound improved and her air exchange is improved. Crackles throughout practically no left lower lobe.. Abdomen soft bowel sounds are heard. No masses or tenderness. No tenderness in the left upper quadrant as her was yesterday. Extremities are intact. No cyanosis clubbing or edema. Skin is without rash or lesion. Neurologic examination is brief but nonfocal. - Labs CBC & Chem 7: 04/05/18 02:58 04/05/18 02:58 Labs: Abnormal Lab Results - Last 24 Hours (Table) 04/05/18 04/05/18 Range/Units 02:58 02:58 WBC 11.7 H (4.0-11.0) k/uL RBC 3.38 L (3.80-5.40) m/uL Hgb 9.7 L (11.4-16.0) gm/dL Hct 28.5 L (34.0-46.0) % Neutrophils # 9.5 H (1.3-7.7) k/uL Chloride 115 H (98-107) mmol/L Carbon Dioxide 16 L (22-30) mmol/L Glucose 121 H (74-99) mg/dL Calcium 7.9 L (8.4-10.2) mg/dL Phosphorus 1.8 L (2.5-4.5) mg/dL Magnesium 2.4 H (1.6-2.3) mg/dL Microbiology - Last 24 Hours (Table) 04/03/18 12:20 Urine Culture - Preliminary Urine,Voided Coagulase Negative Staph 04/03/18 12:20 Blood Culture - Preliminary Blood No Growth after 24 hours Assessment and Plan Assessment: Assessment Left lower lobe pneumonia Sepsis with hypotension Possible acute mononucleosis Splenomegaly, secondary to mononucleosis Mild lactic acidemia Mild anemia Anion gap metabolic acidosis secondary to mild lactic acidosis. Plan: Plan dated 04/04/2018 The patient will be placed on Rocephin and Zithromax for community-acquired pneumonia. There is no specific treatment for mononucleosis. This may or may not be actually going on at this time. In addition, she's received adequate fluid resuscitation. We'll get a stat random cortisol to rule out adrenal insufficiency. In addition, the patient's norepinephrine will be weaned. X- rays labs are reviewed. The computed tomography scan of the chest was missed transcribed or misinterpreted by the radiologist. The consolidation is actually left lower lobe which corresponds to the abnormality seen on the chest x-ray. Hence, the primary processors community acquired left lower lobe pneumonia. Plan dated 04/05/2018 The patient was placed on Rocephin and Zithromax for community-acquired pneumonia. The patient is feeling better. We've been unable to wean her off the norepinephrine. She did receive adequate fluid resuscitation. A stat random cortisol level was within normal range. X-rays reviewed and shows a persistent infiltrate left lower lobe and possible early infiltrate with atelectasis in the right base. The patient otherwise is feeling much better. Breathing treatments have coughing. Her appetite improved. We'll keep her here in the ICU for the better part of the day and possibly she can move out later today or tomorrow. Critical care time is 37 minutes. Time with Patient: Greater than 30
--- NOTE | 2018-04-05 10:11 | P.GSCN ---
History of Present Illness Consult date: 04/04/18 Reason for Consult: Sepsis, hypotension History of present illness: This a 22-year-old female admitted to the medical service. Patient was admitted to the ICU with complaints of hypotension requiring several liters of fluid bolus and workup of sepsis. The patient is known to have mono. The patient denies any significant abdominal pain. However she's been profoundly hypotensive. Computed tomography scan of the abdomen is pending. Past Medical History Past Medical History: No Reported History Additional Past Medical History / Comment(s): herpes History of Any Multi-Drug Resistant Organisms: None Reported Past Surgical History: Section Past Anesthesia/Blood Transfusion Reactions: No Reported Reaction Additional Past Anesthesia/Blood Transfusion Reaction / Comm: NEVER HAS HAD GENERAL ANESTHESIA Additional Psychological History / Comment(s): single but has boyfriend and sexual partner. no travel. 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 Smoking Status: Current every day smoker - Past Family History Son(s) Family Medical History: No Reported History Mother Family Medical History: No Reported History Father Additional Family Medical History / Comment(s): "PASSES OUT" PER PT Medications and Allergies Home Medications Medication Instructions Recorded Confirmed Type FLUoxetine HCL [PROzac] 10 mg PO DAILY #14 cap 02/24/18 04/03/18 Rx hydrOXYzine PAMOATE [Vistaril] 25 mg PO Q8HR PRN #15 cap 02/24/18 04/03/18 Rx Allergies Allergy/AdvReac Type Severity Reaction Status Date / Time morphine Allergy Itching Verified 04/03/18 11:47 Surgical - Exam Vital Signs Temp Pulse Resp BP Pulse Ox 102 F H 151 H 18 113/61 95 04/03/18 11:32 04/03/18 11:32 04/03/18 11:32 04/03/18 11:32 04/03/18 11:32 - General well developed, no distress - Eyes PERRL - ENT normal pinna - Neck no masses - Respiratory normal expansion - Cardiovascular Rhythm: regular - Abdomen No evidence of peritoneal signs Abdomen: soft, non tender Results - Labs 04/05/18 02:58 04/05/18 02:58 Abnormal Lab Results - Last 24 Hours (Table) 04/05/18 04/05/18 Range/Units 02:58 02:58 WBC 11.7 H (4.0-11.0) k/uL RBC 3.38 L (3.80-5.40) m/uL Hgb 9.7 L (11.4-16.0) gm/dL Hct 28.5 L (34.0-46.0) % Neutrophils # 9.5 H (1.3-7.7) k/uL Chloride 115 H (98-107) mmol/L Carbon Dioxide 16 L (22-30) mmol/L Glucose 121 H (74-99) mg/dL Calcium 7.9 L (8.4-10.2) mg/dL Phosphorus 1.8 L (2.5-4.5) mg/dL Magnesium 2.4 H (1.6-2.3) mg/dL Microbiology - Last 24 Hours (Table) 04/03/18 12:20 Urine Culture - Preliminary Urine,Voided Coagulase Negative Staph 04/03/18 12:20 Blood Culture - Preliminary Blood No Growth after 24 hours Diabetes panel 04/05/18 Range/Units 02:58 Sodium 142 (137-145) mmol/L Potassium 3.6 (3.5-5.1) mmol/L Chloride 115 H (98-107) mmol/L Carbon Dioxide 16 L (22-30) mmol/L BUN 12 (7-17) mg/dL Creatinine 0.60 (0.52-1.04) mg/dL Glucose 121 H (74-99) mg/dL Calcium 7.9 L (8.4-10.2) mg/dL Calcium panel 04/05/18 Range/Units 02:58 Calcium 7.9 L (8.4-10.2) mg/dL Phosphorus 1.8 L (2.5-4.5) mg/dL Pituitary panel 04/05/18 Range/Units 02:58 Sodium 142 (137-145) mmol/L Potassium 3.6 (3.5-5.1) mmol/L Chloride 115 H (98-107) mmol/L Carbon Dioxide 16 L (22-30) mmol/L BUN 12 (7-17) mg/dL Creatinine 0.60 (0.52-1.04) mg/dL Glucose 121 H (74-99) mg/dL Calcium 7.9 L (8.4-10.2) mg/dL Adrenal panel 04/05/18 Range/Units 02:58 Sodium 142 (137-145) mmol/L Potassium 3.6 (3.5-5.1) mmol/L Chloride 115 H (98-107) mmol/L Carbon Dioxide 16 L (22-30) mmol/L BUN 12 (7-17) mg/dL Creatinine 0.60 (0.52-1.04) mg/dL Glucose 121 H (74-99) mg/dL Calcium 7.9 L (8.4-10.2) mg/dL Assessment and Plan Assessment: Profound hypotension, sepsis. Patient will undergo computed tomography scan had. We will follow with you.
--- NOTE | 2018-04-05 10:11 | P.PN ---
Progress Note - Text Progress Note Date: 04/05/18 The patient remained stable. Her CAT scan performed yesterday shows evidence of a left lower lobe infiltrate. She has no significant abdominal pain. On exam her vital signs are stable. Her abdomen soft. There is no abdominal tenderness. Hypertension related to pneumonia. No surgical intervention is planned. We will sign off.
[2018-04-05] MEDS ORDERED: SODIUM CHLORIDE 0.9% 1,000 ML IV SCH (11:00)
[2018-04-05] MEDS: IBUPROFEN 600 MG TAB PO PRN (14:13)
--- NOTE | 2018-04-05 14:31 | P.PN ---
Subjective Progress Note Date: 04/05/18 22-year-old female presents to the emergency center after recent evaluation by her certified industrial hygienist. She was having abdominal pain and there is evidence of a positive test. The patient continued to worsen and she gets to the inferior with chill but no rigor, her abdominal pain worsened and she presented to the emergency center. Evaluations performed including a transvaginal ultrasound without evidence of acute disease state. Evaluation of her was also performed and no intrauterine was noted. The patient has had 2 serum tests that were at about the same level. With ongoing the level should've increased and with loss of should have gone down. If this time the patient is now afebrile although he had a high-grade fever at admission. Feeling considerably better than playing a board game with her boyfriend, and only sexual partner. She was hypotensive requiring vasopressor therapy and is now off of vasopressor and feeling somewhat better. She is a thin young woman in it's unclear what her baseline blood pressure is. Currently he is certainly doing better and is regaining her appetite. 04/05/2018 patient is feeling better but has stated amount of coughing occurring at this time. She is to her fatigue. She had significant vasopressor requirements initially that have now resolved. Echocardiogram is noted to show evidence of the markedly diminished ejection fraction. Fortunately she is her feel somewhat better was able to eat her lunch without nausea or emesis. Will be transferred out of ICU today. Objective - Vital Signs Vital signs: Vital Signs Temp 98.9 F 04/05/18 00:00 Pulse 96 04/05/18 14:00 Resp 23 04/05/18 14:00 BP 107/68 04/05/18 14:00 Pulse Ox 96 04/05/18 08:00 Intake & Output 04/04/18 04/05/18 04/05/18 18:59 06:59 18:59 Intake Total 2292.502 1763.250 235.313 Output Total 840 100 Balance 3257.864 9542.250 135.313 Weight 71.8 kg Intake: IV 1375 125 Sodium Chloride 0.9% 1, 1375 125 000 ml @ 125 mls/hr IV . Q8H [facility] Rx#:[id number] Intake, IV Titration 2292.502 388.250 110.313 Amount Azithromycin 500 mg In 250 Sodium Chloride 0.9% 250 ml @ 125 mls/hr IVPB DAILY [facility] Rx#:[id number] Magnesium Sulfate-D5w Pmx 200 1 gm In Dextrose/Water 1 100ml.bag @ 100 mls/hr IVPB Q1H [facility] Rx#: [id number] Norepinephrin 4 mg-0.9% 392.502 263.250 35.313 Ns Pmx 4 mg In 250 ml @ Titrate IV .Q0M [facility] Rx#: [id number] Potassium Chloride 10 meq 200 In Water For Injection 1 100ml.bag @ 100 mls/hr IVPB Q1H [facility] Rx#: [id number] Sodium Chloride 0.9% 1, 1250 125 000 ml @ 125 mls/hr IV . Q8H [facility] Rx#:[id number] Sodium Chloride 0.9% 1, 75 000 ml @ 75 mls/hr IV . [id number] [facility] Rx#:[id number] Output: Urine 840 100 Other: Voiding Method Toilet Toilet Toilet # Voids 1 0 1 - Exam pleasnt 22 year old woman felling better but still with HEENT: Anicteric conjunctiva are pink and moist nasal mucosa grossly intact without significant lesions, there is no thrush. Neck: The neck is supple without significant lymphadenopathy or thyromegaly. Lungs: Good bilateral air entry without significant crackles or wheezing. positive bronchial sounds at left base positive egophony no dullness Heart: Regular rate and rhythm with an audible S1-S2, no S3 no S4. There is no significant murmur click or rub, PMI was nondisplaced. Abdomen: Positive bowel sounds soft and tender of both upper quadrants without palpable masses or organomegaly. There was no guarding or rebound. Extremities: The upper extremities have excellent pulses they are symmetric, no significant petechiae or telangiectasia. No splinter hemorrhages were noted. The lower extremities are free from significant edema. The peripheral pulses were 2+ and symmetric. Neuro: Awake alert oriented to person place and time. There are no acute new gross focal sensory motor deficits. - Labs CBC & Chem 7: 04/05/18 02:58 04/05/18 02:58 Labs: Abnormal Lab Results - Last 24 Hours (Table) 04/05/18 04/05/18 Range/Units 02:58 02:58 WBC 11.7 H (4.0-11.0) k/uL RBC 3.38 L (3.80-5.40) m/uL Hgb 9.7 L (11.4-16.0) gm/dL Hct 28.5 L (34.0-46.0) % Neutrophils # 9.5 H (1.3-7.7) k/uL Chloride 115 H (98-107) mmol/L Carbon Dioxide 16 L (22-30) mmol/L Glucose 121 H (74-99) mg/dL Calcium 7.9 L (8.4-10.2) mg/dL Phosphorus 1.8 L (2.5-4.5) mg/dL Magnesium 2.4 H (1.6-2.3) mg/dL Microbiology - Last 24 Hours (Table) 04/03/18 12:20 Urine Culture - Preliminary Urine,Voided Coagulase Negative Staph 04/03/18 12:20 Blood Culture - Preliminary Blood No Growth after 24 hours Laboratory Results WBC 11.7 k/uL (4.0-11.0) H 04/05/18 02:58 RBC 3.38 m/uL (3.80-5.40) L 04/05/18 02:58 Hgb 9.7 gm/dL (11.4-16.0) L 04/05/18 02:58 Hct 28.5 % (34.0-46.0) L 04/05/18 02:58 MCV 84.4 fL (80.0-100.0) 04/05/18 02:58 MCH 28.8 pg (25.0-35.0) 04/05/18 02:58 MCHC 34.1 g/dL (31.0-37.0) 04/05/18 02:58 RDW 13.7 % (11.5-15.5) 04/05/18 02:58 Plt Count 153 k/uL (150-450) 04/05/18 02:58 Neutrophils % 81 % 04/05/18 02:58 Neutrophils % (Manual) 54 % 04/04/18 04:48 Band Neutrophils % 39 % 04/04/18 04:48 Lymphocytes % 14 % 04/05/18 02:58 Lymphocytes % (Manual) 5 % 04/04/18 04:48 Monocytes % 3 % 04/05/18 02:58 Monocytes % (Manual) 1 % 04/04/18 04:48 Eosinophils % 1 % 04/05/18 02:58 Basophils % 0 % 04/05/18 02:58 Metamyelocytes % 2 % 04/04/18 04:48 Neutrophils # 9.5 k/uL (1.3-7.7) H 04/05/18 02:58 Neutrophils # (Manual) 5.80 k/uL (1.3-7.7) 04/04/18 04:48 Lymphocytes # 1.6 k/uL (1.0-4.8) 04/05/18 02:58 Lymphocytes # (Manual) 0.32 k/uL (1.0-4.8) L 04/04/18 04:48 Monocytes # 0.3 k/uL (0-1.0) 04/05/18 02:58 Monocytes # (Manual) 0.06 k/uL (0-1.0) 04/04/18 04:48 Eosinophils # 0.1 k/uL (0-0.7) 04/05/18 02:58 Basophils # 0.0 k/uL (0-0.2) 04/05/18 02:58 Metamyelocytes # (Man) 0.13 k/uL (0) H 04/04/18 04:48 Myelocytes # (Manual) 0.00 k/uL (0) 04/04/18 04:48 Nucleated RBCs 0 /100 WBC (0-0) 04/04/18 04:48 Manual Slide Review Performed 04/04/18 04:48 Fibrinogen 448 mg/dL (200-500) 04/04/18 04:48 D-Dimer 0.74 mg/L FEU (<0.60) H 04/03/18 19:30 Sodium 142 mmol/L (137-145) 04/05/18 02:58 Potassium 3.6 mmol/L (3.5-5.1) 04/05/18 02:58 Chloride 115 mmol/L (98-107) H 04/05/18 02:58 Carbon Dioxide 16 mmol/L (22-30) L 04/05/18 02:58 Anion Gap 11 mmol/L 04/05/18 02:58 BUN 12 mg/dL (7-17) 04/05/18 02:58 Creatinine 0.60 mg/dL (0.52-1.04) 04/05/18 02:58 Est GFR (CKD-EPI)AfAm >90 (>60 ml/min/1.73 sqM) 04/05/18 02:58 Est GFR (CKD-EPI)NonAf >90 (>60 ml/min/1.73 sqM) 04/05/18 02:58 Glucose 121 mg/dL (74-99) H 04/05/18 02:58 POC Glucose (mg/dL) 113 mg/dL (75-99) H 04/04/18 00:56 POC Glu Comic Writer ID Connie Zuluaga 04/04/18 00:56 Plasma Lactic Acid [place] 2.0 mmol/L (0.7-2.0) 04/04/18 00:19 Calcium 7.9 mg/dL (8.4-10.2) L 04/05/18 02:58 Phosphorus 1.8 mg/dL (2.5-4.5) L 04/05/18 02:58 Magnesium 2.4 mg/dL (1.6-2.3) H 04/05/18 02:58 Ferritin 67.4 ng/mL (10.0-291.0) 04/04/18 04:48 Total Bilirubin 1.9 mg/dL (0.2-1.3) H 04/04/18 04:48 AST 16 U/L (14-36) 04/04/18 04:48 ALT 14 U/L (9-52) 04/04/18 04:48 Alkaline Phosphatase 56 U/L (38-126) 04/04/18 04:48 Troponin I <0.012 ng/mL (0.000-0.034) 04/04/18 04:48 Total Protein 4.9 g/dL (6.3-8.2) L 04/04/18 04:48 Albumin 2.7 g/dL (3.5-5.0) L 04/04/18 04:48 Triglycerides 76 mg/dL (<150) 04/04/18 04:48 Amylase 42 U/L (30-110) 04/03/18 12:20 Lipase 31 U/L (23-300) 04/03/18 12:20 HCG, Quant 46.5 mIU/mL 04/04/18 04:48 Cortisol 56 ug/dL 04/04/18 04:48 Urine Color Yellow 04/03/18 12:20 Urine Appearance Clear (Clear) 04/03/18 12:20 Urine pH 7.0 (5.0-8.0) 04/03/18 12:20 Ur Specific Casey 1.019 (1.001-1.035) 04/03/18 12:20 Urine Protein Trace (Negative) H 04/03/18 12:20 Urine Glucose (UA) Negative (Negative) 04/03/18 12:20 Urine Ketones Negative (Negative) 04/03/18 12:20 Urine Blood Negative (Negative) 04/03/18 12:20 Urine Nitrite Negative (Negative) 04/03/18 12:20 Urine Bilirubin Negative (Negative) 04/03/18 12:20 Urine Urobilinogen 2.0 mg/dL (<2.0) 04/03/18 12:20 Ur Leukocyte Esterase Negative (Negative) 04/03/18 12:20 Urine HCG, Qual Detected (Not Detectd) 04/03/18 12:20 Urine Opiates Screen Negative ng/mL (Negative) 04/04/18 10:30 Urine Methadone Screen Negative ng/mL (Negative) 04/04/18 10:30 Ur Propoxyphene Screen Negative ng/mL (Negative) 04/04/18 10:30 Urine Barbiturates Negative ng/mL (Negative) 04/04/18 10:30 Ur Phencyclidine Scrn Negative ng/mL (Negative) 04/04/18 10:30 Ur Amphetamine Screen Negative ng/mL (Negative) 04/04/18 10:30 U Benzodiazepines Scrn Negative ng/mL (Negative) 04/04/18 10:30 Urine Cocaine Screen Negative ng/mL (Negative) 04/04/18 10:30 U Cannabinoids Screen Negative ng/mL (Negative) 04/04/18 10:30 Urine Alcohol Negative mg/dL (Negative) 04/04/18 10:30 Heterophile Antibody Positive (Negative) 04/04/18 00:19 Influenza Type A RNA Not Detected (Not Detectd) 04/03/18 15:20 Influenza Type B (PCR) Not Detected (Not Detectd) 04/03/18 15:20 Microbiology 04/03/18 12:20 Urine,Voided Urine Culture - Preliminary Coagulase Negative Staph 04/03/18 12:20 Blood Blood Culture - Preliminary No Growth after 24 hours Assessment and Plan (1) Positive test Current Visit: Yes Status: Acute Code(s): Z32.01 - ENCOUNTER FOR TEST, RESULT POSITIVE SNOMED Code(s): 092588766 (2) EBV infection Current Visit: Yes Status: Acute Code(s): B27.90 - INFECTIOUS MONONUCLEOSIS , UNSPECIFIED WITHOUT COMPLICATION SNOMED Code(s): 182711579 (3) LLL pneumonia Narrative/Plan: 22 year old woman who was seen by classified advertising supervisor for ABD pain and was found to have positive test, and with the pain was admitted and has had testing including transvaginal US without evidence of pathology. US failed to reveal IUP. Pateint now feeling better and hypotension has improved off of levophed. Is improving but anxious. Informed that if EBV is confirmed then likely false positive test from the viral infection. Does have new LLL pneumonia and current antibiotic therapy is adequate. Patient and boyfriends questions answered. 04/05/2018 reveals the patient be feeling better. We'll move out of ICU. He continues to have cough with no sputum production. With her [place] viral infection is likely occurring at this time is probably responsible for her feeling quite so poorly. As a pneumonia. Echocardiogram was performed showing evidence of the low ejection fraction. This will need follow-up. Antibiotic therapy currently is on Rocephin and azithromycin and this will continue at this time. Confirmation of the [place] viral infection is in progress. And there is a potential that this could be causing a false positive test. Current Visit: Yes Status: Acute Code(s): J18.1 - LOBAR PNEUMONIA, UNSPECIFIED ORGANISM SNOMED Code(s): 826427056
[2018-04-05 15:55] LABS: Phosphorus 2.3 mg/dL (2.5-4.5)
[2018-04-05] MEDS ORDERED: SODIUM PHOSPHATE 10 MMOL in SODIUM CHLORIDE 0.9% 250 ML IVPB ONE (17:10)
[2018-04-05] MEDS ORDERED: POTASSIUM CHLORIDE ER 20 MEQ TAB.ER PO STA (17:11)
--- NOTE | 2018-04-05 18:52 | PN ---
PROGRESS NOTE Ms. López is a 22-year-old female, who has been admitted with left lower lobe pneumonia and infectious mononucleosis. The patient was initially in septic shock requiring a large dose of . Patient is currently being off the epinephrine. She is feeling better. Her shortness of breath is improved. Patient's echocardiogram reveals evidence of global hypokinesia with ejection fraction of 25-30% which may be suggestive of viral myocarditis. Patient's blood pressure is 97/58 mmHg. Respiratory rate is 20. Heart: First and second heart sounds are normal. Lungs are lungs are fairly clear to auscultation and percussion. The patient's white count is 11,700, hemoglobin is 9.7. Electrolytes are normal. Chest x-ray still shows evidence of infiltrate but there is no definite evidence of overt congestive heart failure. FINAL IMPRESSION: This patient is recovering from infectious mononucleosis and pneumonia associated with shock. The patient is improving. At present, there is no evidence of any heart failure. Echocardiogram shows evidence of global hypokinesia with ejection fraction of 30% which may be suggestive of viral myocarditis or sepsis induced generalized myocardial dysfunction. At present we will continue to observe her once the patient has weaned off the Levophed and if the patient's blood pressure remains stable, we will start her on a small dose of beta eduin and MELCHOR inhibitor. MMODL / IJN: [id number] /
--- NOTE | 2018-04-06 00:41 | P.PN ---
Subjective Progress Note Date: 04/06/18 Principal diagnosis: Sepsis secondary to pneumonia Patient is a 22-year-old female with a signal personal history came to also compressed of cough for the past 2 weeks. Patient was also complaining of abdominal pain lower patient came to the hospital. Patient says that she has been having cough with green sputum production. Patient was febrile when she came to the hospital with T-max greater than 103. Patient is having body aches and malaise. Denied any shortness of breath or chest pain. No complains of dizziness or lightheadedness. Patient does have nausea. No vomiting. Patient does have abdominal lower discomfort. No dysuria or hematuria. No hematemesis or melena. D-dimer is 0.[address] exam showed no evidence of PE Beta-hCG 46 on admission ABDOMEN showed solid-appearing lesion left ovary of nonspecific etiology. Follow-up in 66 advised Free fluid seen in the pelvis No evidence of intrauterine at this time. Chest x-ray showed no acute cardio pulmonary process CT of abdomen pelvis showed left lower lobe pneumonia with small associated effusion. Collapsed of much of the colon please correlate to exclude colitis CTA chest showed no evidence of pulmonary embolism. Dense consolidation in the right lower lobe consistent with pneumonia, which is actually left lower lobe. Patient was hypotensive. Tachypneic and tachycardic on admission. Patient was initially requiring pressor support with norepinephrine. WBC is not elevated Influenza negative Heterophile antibody positive Random cortisol 56 04/05/2018 Patient is currently off Levophed drip. Still hypotensive and is being continued on normal saline at 75 mL per hour. Otherwise patient denied any complaints of chest pain or shortness of breath. Patient does have some leg swelling. No fever no chills. Patient says that her abdomen feels bloated. 2-D echo cardiac exam showed his ejection fraction 20-25%. Cardiology was consulted otherwise. Chest x-ray showed right basilar infiltrate and suspected left base infiltrate as well. Left-sided Pleural effusion No nausea vomiting or abdominal pain. Tolerating oral diet. Patient is being transferred to medical floor today. All other review of systems negative except the above Active Medications Acetaminophen (Tylenol Tab) 1,000 mg PO Q6HR PRN PRN Reason: Mild Pain or Fever > 100.5 Last Admin: 04/05/18 21:06 Dose: 1,000 mg Albuterol/Ipratropium (Duoneb 0.5 Mg-3 Mg/3 Ml Soln) 3 ml INHALATION RT-QID [facility] Last Admin: 04/05/18 19:30 Dose: 3 ml Ceftriaxone Sodium (Rocephin) 1,000 mg IVP Q24HR [facility] Last Admin: 04/05/18 08:18 Dose: 1,000 mg Azithromycin 500 mg/ Sodium (Chloride) 250 mls @ 125 mls/hr IVPB DAILY [facility] Last Admin: 04/05/18 08:37 Dose: 125 mls/hr Sodium Chloride (Saline 0.9%) 1,000 mls @ 75 mls/hr IV .[id number] [facility] Ibuprofen (Motrin) 600 mg PO Q6HR PRN PRN Reason: Pain or Fever > 100.5 Last Admin: 04/05/18 14:13 Dose: 600 mg Miscellaneous Information (Magnesium Per Protocol) 1 each MISCELLANE DAILY PRN ; Protocol PRN Reason: Per Protocol Miscellaneous Information (Potassium Per Protocol) 1 each MISCELLANE DAILY PRN ; Protocol PRN Reason: Per Protocol Miscellaneous Information (Phosphorus Per Protocol) 1 each MISCELLANE DAILY PRN ; Protocol PRN Reason: Per Protocol Miscellaneous Information (Potassium Per Protocol) 1 each MISCELLANE DAILY PRN ; Protocol PRN Reason: Per Protocol Naloxone HCl (Narcan) 0.2 mg IV Q2M PRN PRN Reason: Opioid Reversal Objective - Vital Signs Vital signs: Vital Signs Temp 98.1 F 04/05/18 19:39 Pulse 97 04/05/18 19:41 Resp 20 04/05/18 19:39 BP 99/64 04/05/18 19:39 Pulse Ox 98 04/05/18 19:39 Intake & Output 04/05/18 04/05/18 04/06/18 06:59 18:59 06:59 Intake Total 1763.250 235.313 Output Total 100 Balance 1763.250 135.313 Weight 71.8 kg Intake: IV 1375 125 Sodium Chloride 0.9% 1, 1375 125 000 ml @ 125 mls/hr IV . Q8H [facility] Rx#:[id number] Intake, IV Titration 388.250 110.313 Amount Norepinephrin 4 mg-0.9% 263.250 35.313 Ns Pmx 4 mg In 250 ml @ Titrate IV .Q0M [facility] Rx#: [id number] Sodium Chloride 0.9% 1, 125 000 ml @ 125 mls/hr IV . Q8H [facility] Rx#:[id number] Sodium Chloride 0.9% 1, 75 000 ml @ 75 mls/hr IV . [id number] [facility] Rx#:[id number] Output: Urine 100 Other: Voiding Method Toilet Toilet # Voids 0 1 1 - Exam PHYSICAL EXAMINATION: Patient is lying in the bed comfortably, no acute distress, awake alert and oriented.. HEENT: Normocephalic. Neck is supple. Pupils reactive. Nostrils clear. Oral cavity is moist. Ears reveal no drainage. Neck reveals no JVD, carotid bruits, or thyromegaly. CHEST EXAMINATION: Trachea is central. Symmetrical expansion. Bilateral basilar crackles. No wheezing. CARDIAC: Normal S1, S2 with no gallops. No murmurs ABDOMEN: Soft. Bowel sounds normal. No organomegaly. No abdominal bruits. Extremities: 1+ edema. No clubbing or cyanosis Neurologically awake, alert, oriented x3 with well-coordinated movements. No focal deficits noted Skin: No rash or skin lesions. Psychiatric: Cooperative. Nonsuicidal Musculoskeletal: No joint swelling or deformity. Normal range of motion. - Labs CBC & Chem 7: 04/05/18 02:58 04/05/18 15:20 Labs: Abnormal Lab Results - Last 24 Hours (Table) 04/05/18 04/05/18 04/05/18 Range/Units 02:58 02:58 15:20 WBC 11.7 H (4.0-11.0) k/uL RBC 3.38 L (3.80-5.40) m/uL Hgb 9.7 L (11.4-16.0) gm/dL Hct 28.5 L (34.0-46.0) % Neutrophils # 9.5 H (1.3-7.7) k/uL Chloride 115 H (98-107) mmol/L Carbon Dioxide 16 L (22-30) mmol/L Glucose 121 H (74-99) mg/dL Calcium 7.9 L (8.4-10.2) mg/dL Phosphorus 1.8 L 2.3 L (2.5-4.5) mg/dL Magnesium 2.4 H (1.6-2.3) mg/dL Microbiology - Last 24 Hours (Table) 04/03/18 12:20 Blood Culture - Preliminary Blood No Growth after 48 hours Assessment and Plan Assessment: Left lower lobe pneumonia Sepsis/septic shock on admission requiring pressor support and fluid boluses. Off pressors support now Acute CHF with systolic ejection fraction 20-25% Hypokalemia and hypomagnesemia Infectious mononucleosis Splenomegaly Mild and Metabolic acidosis. Secondary to lactic acidosis Slightly elevated beta-hCG. Not trending up. Unlikely viable intrauterine . Ultrasound of the abdomen showed no evidence of intrauterine Plan: Patient be continued on antibiotics in the form of ceftriaxone and azithromycin. Continue with IV hydration and follow closely. Cardiology, Pulmonary and COMMUNITY ASSOCIATION MANAGER is following. Continue with current management and follow up closely. Prognosis is guarded. Time with Patient: Greater than 30
[2018-04-06] MEDS ORDERED: SODIUM CHLORIDE 0.9% 1,000 ML IV SCH (00:45)
[2018-04-06] MEDS: ACETAMINOPHEN TAB 500 MG TAB PO PRN ×2 (06:00→20:46)
[2018-04-06] MEDS: IPRATROPIUM-ALBUTEROL 3 ML NEB INHALATION SCH ×4 (06:04→20:29)
--- NOTE | 2018-04-06 07:40 | XR ---
EXAMINATION TYPE: XR chest 1V DATE OF EXAM: 04/06/2018 CLINICAL HISTORY: Difficulty breathing and pneumonia progress study. TECHNIQUE: Single AP portable upright view of the chest is obtained. COMPARISON: Chest x-ray from one day earlier and older studies. FINDINGS: There is persistent left basilar opacity silhouetting left hemidiaphragm. There is worseni ng right basilar opacity. Upper lungs remain clear without pneumothorax. Cardiac silhouette size is s table and within normal limits. Osseous structures are intact. IMPRESSION: Persistent left basilar infiltrate and/or atelectasis with small left pleural effusion. W orsening right basilar infiltrate and/or atelectasis is noted.
[2018-04-06 08:02] LABS: Anion Gap 12 mmol/L; Blood Urea Nitrogen 12 mg/dL (7-17); Calcium 8.6 mg/dL (8.4-10.2); Carbon Dioxide 16 mmol/L (22-30); Chloride 114 mmol/L (98-107); Glucose 103 mg/dL (74-99); Magnesium 1.8 mg/dL (1.6-2.3); Potassium 3.7 mmol/L (3.5-5.1); Sodium 142 mmol/L (137-145)
[2018-04-06] MEDS: AZITHROMYCIN 500 MG in SODIUM CHLORIDE 0.9% 250 ML IVPB SCH (09:20)
[2018-04-06] MEDS: cefTRIAXone IN SWFI 1,000 MG/10 ML SYRINGE IVP SCH (09:20)
[2018-04-06] MEDS: IBUPROFEN 600 MG TAB PO PRN (09:30)
--- NOTE | 2018-04-06 15:07 | P.PN ---
Subjective Progress Note Date: 04/06/18 A 22-year-old female patient was hospitalized for an extensive left lower lobe pneumonia. During the same hospitalization the patient was diagnosed having a cardiomyopathy with global hypokinesis. The patient is still having cough congestion chest tightness and she is bringing up thick yellowish and greenish sputum. Afebrile for now. No significant chest pain. Breath sounds are quite diminished in the left lung base. A repeat chest x-ray was done today shows persistent lower lobe bilateral pulmonary infiltrates and the patient remains on a combination of Rocephin and Zithromax. During the same admission, the patient was found to have positive heterophile antibodies for infectious mononucleosis. She has some limited sore throat and splenomegaly. Note that she was initially in the intensive care unit for hypotension and currently she is hemodynamically stable. The patient has smoked cigarettes in the past and she used marijuana in the past. No pleurisy. No hemoptysis. She is not . Objective - Vital Signs Vital signs: Vital Signs Temp 98.4 F 04/06/18 11:25 Pulse 83 04/06/18 11:25 Resp 18 04/06/18 11:25 BP 126/80 04/06/18 11:25 Pulse Ox 99 04/06/18 11:25 Intake & Output 04/05/18 04/06/18 04/06/18 18:59 06:59 18:59 Intake Total 235.313 Output Total 100 Balance 135.313 Intake: IV 125 Sodium Chloride 0.9% 1, 125 000 ml @ 125 mls/hr IV . Q8H [facility] Rx#:[id number] Intake, IV Titration 110.313 Amount Norepinephrin 4 mg-0.9% 35.313 Ns Pmx 4 mg In 250 ml @ Titrate IV .Q0M [facility] Rx#: [id number] Sodium Chloride 0.9% 1, 75 000 ml @ 75 mls/hr IV . [id number] [facility] Rx#:[id number] Output: Urine 100 Other: Voiding Method Toilet # Voids 1 1 - Exam Gen. appearance, comfortable no acute distress. No signs of any acute respiratory failure Head exam was generally normal. There was no scleral icterus or corneal arcus. Mucous membranes were moist. Neck was supple and without jugular venous distension, thyromegaly, or carotid bruits. Carotids were easily palpable bilaterally. There was no adenopathy. Lungs sounds are diminished bilaterally especially in the lung bases along with some dullness to percussion left lung base Cardiac exam revealed the PMI to be normally situated and sized. The rhythm was regular and no extrasystoles were noted during several minutes of auscultation. The first and second heart sounds were normal and physiologic splitting of the second heart sound was noted. There were no murmurs, rubs, clicks, or gallops. Abdominal exam revealed normal bowel sounds. The abdomen was soft, non-tender, and without masses, organomegaly, or appreciable enlargement of the abdominal aorta. Examination of the extremities revealed easily palpable radial, femoral and pedal pulses. There was no cyanosis, clubbing or edema. Examination of the skin revealed no evidence of significant rashes, suspicious appearing nevi or other concerning lesions. Neurologically the patient is awake and alert and there is no focal neurological deficit Psychiatrically the patient has normal mood and affect - Labs CBC & Chem 7: 04/05/18 02:58 04/06/18 07:20 Labs: Abnormal Lab Results - Last 24 Hours (Table) 04/05/18 04/06/18 Range/Units 15:20 07:20 Chloride 114 H (98-107) mmol/L Carbon Dioxide 16 L (22-30) mmol/L Glucose 103 H (74-99) mg/dL Phosphorus 2.3 L (2.5-4.5) mg/dL Microbiology - Last 24 Hours (Table) 04/03/18 12:20 Blood Culture - Preliminary Blood No Growth after 72 hours 04/03/18 12:20 Urine Culture - Final Urine,Voided Staphylococcus epidermidis Assessment and Plan Plan: Assessment 1 left lower lobe pneumonia, likely bacterial as the patient has extensive consolidation of left lung base. The patient had positive exposure to strep pneumo through a friend 5 days prior to her being sick. 2 acute hypotension likely secondary to sepsis, recovered 3 cardiomyopathy with global hypokinesis. Rule out infectious/septic cardiomyopathy. Rule out viral 4 positive heterophile antibody raising the suspicion for infectious mononucleosis 5 dyspnea secondary to above 6 anemia 7 non-anion gap metabolic acidosis 8 acute hypoxic history failure secondary left lower lobe pneumonia, currently on room air. Plan Continue Rocephin and Zithromax. Obtain sputum Gram stain and culture. Repeat chest x-ray in the morning with PA and lateral views and watch for any development of pleural effusion. Start the patient on low rate bicarb drip at the rate of 50 mL an hour and watch for any signs of fluid overload. Monitor the bicarb level. Cardiology to monitor the progression of the cardiomyopathy. We'll continue to follow.
[2018-04-06] MEDS: DEXTROSE 5% IN WATER 1,000 ML with SODIUM BICARB (1 MEQ/ML) 50 ML IV SCH (15:59)
[2018-04-06] MEDS: METOPROLOL TARTRATE 12.5 MG TAB PO SCH ×2 (16:01→22:03)
--- NOTE | 2018-04-06 17:14 | PN ---
PROGRESS NOTE This patient is admitted with infectious mononucleosis and pneumonitis. Patient was in septic shock. The patient is moved now to pediatric floor. She remains comfortable. Denies any shortness of breath. Patient is afebrile. Blood pressure is 126/60 mmHg. Heart rate is 80 per minute. First and second heart sounds are normal. Lungs are clear to auscultation and percussion. I will start the patient on a small dose of Lopressor 25 mg b.i.d. today and if he tolerates it we will increase the dose of Lopressor because of underlying possible viral myocarditis and the blood pressure permits we will start the patient on MELCHOR inhibitors in the next 24-48 hours. MMODL / IJN: [id number] /
[2018-04-06] MEDS: guaiFENesin-DM 600/30MG 1 EACH TAB.ER.12H PO SCH (20:46)
--- NOTE | 2018-04-06 21:37 | P.PN ---
Subjective Progress Note Date: 04/06/18 22-year-old female presents to the emergency center after recent evaluation by her hospice superintendent. She was having abdominal pain and there is evidence of a positive test. The patient continued to worsen and she gets to the inferior with chill but no rigor, her abdominal pain worsened and she presented to the emergency center. Evaluations performed including a transvaginal ultrasound without evidence of acute disease state. Evaluation of her was also performed and no intrauterine was noted. The patient has had 2 serum tests that were at about the same level. With ongoing the level should've increased and with loss of should have gone down. If this time the patient is now afebrile although he had a high-grade fever at admission. Feeling considerably better than playing a board game with her boyfriend, and only sexual partner. She was hypotensive requiring vasopressor therapy and is now off of vasopressor and feeling somewhat better. She is a thin young woman in it's unclear what her baseline blood pressure is. Currently he is certainly doing better and is regaining her appetite. 04/05/2018 patient is feeling better but has stated amount of coughing occurring at this time. She is to her fatigue. She had significant vasopressor requirements initially that have now resolved. Echocardiogram is noted to show evidence of the markedly diminished ejection fraction. Fortunately she is her feel somewhat better was able to eat her lunch without nausea or emesis. Will be transferred out of ICU today. 04/06/2018 the patient has had further improvement. Still is having some bouts of significant cough since May. She overall does feel better. Fever has resolved No other new complaints. It is to feel poorly Objective - Vital Signs Vital signs: Vital Signs Temp 98.1 F 04/06/18 20:11 Pulse 92 04/06/18 20:40 Resp 20 04/06/18 20:11 BP 126/88 04/06/18 20:11 Pulse Ox 97 04/06/18 20:11 Intake & Output 04/06/18 04/06/18 04/07/18 06:59 18:59 06:59 Other: # Voids 1 - Exam pleasnt 22 year old woman felling better but still with HEENT: Anicteric conjunctiva are pink and moist nasal mucosa grossly intact without significant lesions, there is no thrush. Neck: The neck is supple without significant lymphadenopathy or thyromegaly. Lungs: Good bilateral air entry without significant crackles or wheezing. positive bronchial sounds at left base positive egophony no dullness Heart: Regular rate and rhythm with an audible S1-S2, no S3 no S4. There is no significant murmur click or rub, PMI was nondisplaced. Abdomen: Positive bowel sounds soft and tender of both upper quadrants without palpable masses or organomegaly. There was no guarding or rebound. Extremities: The upper extremities have excellent pulses they are symmetric, no significant petechiae or telangiectasia. No splinter hemorrhages were noted. The lower extremities are free from significant edema. The peripheral pulses were 2+ and symmetric. Neuro: Awake alert oriented to person place and time. There are no acute new gross focal sensory motor deficits. - Labs CBC & Chem 7: 04/05/18 02:58 04/06/18 07:20 Labs: Abnormal Lab Results - Last 24 Hours (Table) 04/06/18 Range/Units 07:20 Chloride 114 H (98-107) mmol/L Carbon Dioxide 16 L (22-30) mmol/L Glucose 103 H (74-99) mg/dL Microbiology - Last 24 Hours (Table) 04/03/18 12:20 Blood Culture - Preliminary Blood No Growth after 72 hours 04/03/18 12:20 Urine Culture - Final Urine,Voided Staphylococcus epidermidis Laboratory Results WBC 11.7 k/uL (4.0-11.0) H 04/05/18 02:58 RBC 3.38 m/uL (3.80-5.40) L 04/05/18 02:58 Hgb 9.7 gm/dL (11.4-16.0) L 04/05/18 02:58 Hct 28.5 % (34.0-46.0) L 04/05/18 02:58 MCV 84.4 fL (80.0-100.0) 04/05/18 02:58 MCH 28.8 pg (25.0-35.0) 04/05/18 02:58 MCHC 34.1 g/dL (31.0-37.0) 04/05/18 02:58 RDW 13.7 % (11.5-15.5) 04/05/18 02:58 Plt Count 153 k/uL (150-450) 04/05/18 02:58 Neutrophils % 81 % 04/05/18 02:58 Neutrophils % (Manual) 54 % 04/04/18 04:48 Band Neutrophils % 39 % 04/04/18 04:48 Lymphocytes % 14 % 04/05/18 02:58 Lymphocytes % (Manual) 5 % 04/04/18 04:48 Monocytes % 3 % 04/05/18 02:58 Monocytes % (Manual) 1 % 04/04/18 04:48 Eosinophils % 1 % 04/05/18 02:58 Basophils % 0 % 04/05/18 02:58 Metamyelocytes % 2 % 04/04/18 04:48 Neutrophils # 9.5 k/uL (1.3-7.7) H 04/05/18 02:58 Neutrophils # (Manual) 5.80 k/uL (1.3-7.7) 04/04/18 04:48 Lymphocytes # 1.6 k/uL (1.0-4.8) 04/05/18 02:58 Lymphocytes # (Manual) 0.32 k/uL (1.0-4.8) L 04/04/18 04:48 Monocytes # 0.3 k/uL (0-1.0) 04/05/18 02:58 Monocytes # (Manual) 0.06 k/uL (0-1.0) 04/04/18 04:48 Eosinophils # 0.1 k/uL (0-0.7) 04/05/18 02:58 Basophils # 0.0 k/uL (0-0.2) 04/05/18 02:58 Metamyelocytes # (Man) 0.13 k/uL (0) H 04/04/18 04:48 Myelocytes # (Manual) 0.00 k/uL (0) 04/04/18 04:48 Nucleated RBCs 0 /100 WBC (0-0) 04/04/18 04:48 Manual Slide Review Performed 04/04/18 04:48 Fibrinogen 448 mg/dL (200-500) 04/04/18 04:48 D-Dimer 0.74 mg/L FEU (<0.60) H 04/03/18 19:30 Sodium 142 mmol/L (137-145) 04/06/18 07:20 Potassium 3.7 mmol/L (3.5-5.1) 04/06/18 07:20 Chloride 114 mmol/L (98-107) H 04/06/18 07:20 Carbon Dioxide 16 mmol/L (22-30) L 04/06/18 07:20 Anion Gap 12 mmol/L 04/06/18 07:20 BUN 12 mg/dL (7-17) 04/06/18 07:20 Creatinine 0.54 mg/dL (0.52-1.04) 04/06/18 07:20 Est GFR (CKD-EPI)AfAm >90 (>60 ml/min/1.73 sqM) 04/06/18 07:20 Est GFR (CKD-EPI)NonAf >90 (>60 ml/min/1.73 sqM) 04/06/18 07:20 Glucose 103 mg/dL (74-99) H 04/06/18 07:20 POC Glucose (mg/dL) 113 mg/dL (75-99) H 04/04/18 00:56 POC Glu Escape Wheel Tooth Cutter ID Connie Zuluaga 04/04/18 00:56 Plasma Lactic Acid [place] 2.0 mmol/L (0.7-2.0) 04/04/18 00:19 Calcium 8.6 mg/dL (8.4-10.2) 04/06/18 07:20 Phosphorus 3.0 mg/dL (2.5-4.5) 04/06/18 07:20 Magnesium 1.8 mg/dL (1.6-2.3) 04/06/18 07:20 Ferritin 67.4 ng/mL (10.0-291.0) 04/04/18 04:48 Total Bilirubin 1.9 mg/dL (0.2-1.3) H 04/04/18 04:48 AST 16 U/L (14-36) 04/04/18 04:48 ALT 14 U/L (9-52) 04/04/18 04:48 Alkaline Phosphatase 56 U/L (38-126) 04/04/18 04:48 Troponin I <0.012 ng/mL (0.000-0.034) 04/04/18 04:48 Total Protein 4.9 g/dL (6.3-8.2) L 04/04/18 04:48 Albumin 2.7 g/dL (3.5-5.0) L 04/04/18 04:48 Triglycerides 76 mg/dL (<150) 04/04/18 04:48 Amylase 42 U/L (30-110) 04/03/18 12:20 Lipase 31 U/L (23-300) 04/03/18 12:20 HCG, Quant 60.1 mIU/mL 04/06/18 07:20 Cortisol 56 ug/dL 04/04/18 04:48 Urine Color Yellow 04/03/18 12:20 Urine Appearance Clear (Clear) 04/03/18 12:20 Urine pH 7.0 (5.0-8.0) 04/03/18 12:20 Ur Specific [place] 1.019 (1.001-1.035) 04/03/18 12:20 Urine Protein Trace (Negative) H 04/03/18 12:20 Urine Glucose (UA) Negative (Negative) 04/03/18 12:20 Urine Ketones Negative (Negative) 04/03/18 12:20 Urine Blood Negative (Negative) 04/03/18 12:20 Urine Nitrite Negative (Negative) 04/03/18 12:20 Urine Bilirubin Negative (Negative) 04/03/18 12:20 Urine Urobilinogen 2.0 mg/dL (<2.0) 04/03/18 12:20 Ur Leukocyte Esterase Negative (Negative) 04/03/18 12:20 Urine HCG, Qual Detected (Not Detectd) 04/03/18 12:20 Urine Opiates Screen Negative ng/mL (Negative) 04/04/18 10:30 Urine Methadone Screen Negative ng/mL (Negative) 04/04/18 10:30 Ur Propoxyphene Screen Negative ng/mL (Negative) 04/04/18 10:30 Urine Barbiturates Negative ng/mL (Negative) 04/04/18 10:30 Ur Phencyclidine Scrn Negative ng/mL (Negative) 04/04/18 10:30 Ur Amphetamine Screen Negative ng/mL (Negative) 04/04/18 10:30 U Benzodiazepines Scrn Negative ng/mL (Negative) 04/04/18 10:30 Urine Cocaine Screen Negative ng/mL (Negative) 04/04/18 10:30 U Cannabinoids Screen Negative ng/mL (Negative) 04/04/18 10:30 Urine Alcohol Negative mg/dL (Negative) 04/04/18 10:30 Heterophile Antibody Positive (Negative) 04/04/18 00:19 Influenza Type A RNA Not Detected (Not Detectd) 04/03/18 15:20 Influenza Type B (PCR) Not Detected (Not Detectd) 04/03/18 15:20 Microbiology 04/03/18 12:20 Blood Blood Culture - Preliminary No Growth after 72 hours 04/03/18 12:20 Urine,Voided Urine Culture - Final Staphylococcus epidermidis Assessment and Plan (1) Positive test Current Visit: Yes Status: Acute Code(s): Z32.01 - ENCOUNTER FOR TEST, RESULT POSITIVE SNOMED Code(s): 897539958 (2) EBV infection Current Visit: Yes Status: Acute Code(s): B27.90 - INFECTIOUS MONONUCLEOSIS , UNSPECIFIED WITHOUT COMPLICATION SNOMED Code(s): 542979022 (3) LLL pneumonia Narrative/Plan: 22 year old woman who was seen by plain clothes police officer for ABD pain and was found to have positive test, and with the pain was admitted and has had testing including transvaginal US without evidence of pathology. US failed to reveal IUP. Pateint now feeling better and hypotension has improved off of levophed. Is improving but anxious. Informed that if EBV is confirmed then likely false positive test from the viral infection. Does have new LLL pneumonia and current antibiotic therapy is adequate. Patient and boyfriends questions answered. 04/05/2018 reveals the patient be feeling better. We'll move out of ICU. He continues to have cough with no sputum production. With her [place] viral infection is likely occurring at this time is probably responsible for her feeling quite so poorly. As a pneumonia. Echocardiogram was performed showing evidence of the low ejection fraction. This will need follow-up. Antibiotic therapy currently is on Rocephin and azithromycin and this will continue at this time. Confirmation of the [place] viral infection is in progress. And there is a potential that this could be causing a false positive test. 04/06/2018 patient has improved. She's now on the medical floor. Still feels quite weak and has been seen by cardiology. Mucinex is added to help her with her cough and sputum production. Not having any further fevers. Appears to be having a good clinical response to the antibiotic therapy. [place] viral testing is still in process. Remains concerned about false positive test. Current Visit: Yes Status: Acute Code(s): J18.1 - LOBAR PNEUMONIA, UNSPECIFIED ORGANISM SNOMED Code(s): 302647540
--- NOTE | 2018-04-07 01:49 | P.PN ---
Subjective Progress Note Date: 04/06/18 Principal diagnosis: Sepsis secondary to pneumonia Patient is a 22-year-old female with a signal personal history came to also compressed of cough for the past 2 weeks. Patient was also complaining of abdominal pain lower patient came to the hospital. Patient says that she has been having cough with green sputum production. Patient was febrile when she came to the hospital with T-max greater than 103. Patient is having body aches and malaise. Denied any shortness of breath or chest pain. No complains of dizziness or lightheadedness. Patient does have nausea. No vomiting. Patient does have abdominal lower discomfort. No dysuria or hematuria. No hematemesis or melena. D-dimer is 0.[address] exam showed no evidence of PE Beta-hCG 46 on admission ABDOMEN showed solid-appearing lesion left ovary of nonspecific etiology. Follow-up in 66 advised Free fluid seen in the pelvis No evidence of intrauterine at this time. Chest x-ray showed no acute cardio pulmonary process CT of abdomen pelvis showed left lower lobe pneumonia with small associated effusion. Collapsed of much of the colon please correlate to exclude colitis CTA chest showed no evidence of pulmonary embolism. Dense consolidation in the right lower lobe consistent with pneumonia, which is actually left lower lobe. Patient was hypotensive. Tachypneic and tachycardic on admission. Patient was initially requiring pressor support with norepinephrine. WBC is not elevated Influenza negative Heterophile antibody positive Random cortisol 56 04/05/2018 Patient is currently off Levophed drip. Still hypotensive and is being continued on normal saline at 75 mL per hour. Otherwise patient denied any complaints of chest pain or shortness of breath. Patient does have some leg swelling. No fever no chills. Patient says that her abdomen feels bloated. 2-D echo cardiac exam showed his ejection fraction 20-25%. Cardiology was consulted otherwise. Chest x-ray showed right basilar infiltrate and suspected left base infiltrate as well. Left-sided Pleural effusion No nausea vomiting or abdominal pain. Tolerating oral diet. Patient is being transferred to medical floor today. 04/06/2018 Patient denied any complaints of chest pain or shortness of breath. Blood pressure seems to be improved. Otherwise patient is tolerating oral diet. Patient does have significant weight gain due to fluid overload. No fever no chills. No other acute overnight issues. Patient is being followed by pulmonary and ID. All other review of systems negative except the above Active Medications Acetaminophen (Tylenol Tab) 1,000 mg PO Q6HR PRN PRN Reason: Mild Pain or Fever > 100.5 Last Admin: 04/05/18 21:06 Dose: 1,000 mg Albuterol/Ipratropium (Duoneb 0.5 Mg-3 Mg/3 Ml Soln) 3 ml INHALATION RT-QID [facility] Last Admin: 04/05/18 19:30 Dose: 3 ml Ceftriaxone Sodium (Rocephin) 1,000 mg IVP Q24HR [facility] Last Admin: 04/05/18 08:18 Dose: 1,000 mg Azithromycin 500 mg/ Sodium (Chloride) 250 mls @ 125 mls/hr IVPB DAILY [facility] Last Admin: 04/05/18 08:37 Dose: 125 mls/hr Sodium Chloride (Saline 0.9%) 1,000 mls @ 75 mls/hr IV .[id number] [facility] Ibuprofen (Motrin) 600 mg PO Q6HR PRN PRN Reason: Pain or Fever > 100.5 Last Admin: 04/05/18 14:13 Dose: 600 mg Miscellaneous Information (Magnesium Per Protocol) 1 each MISCELLANE DAILY PRN ; Protocol PRN Reason: Per Protocol Miscellaneous Information (Potassium Per Protocol) 1 each MISCELLANE DAILY PRN ; Protocol PRN Reason: Per Protocol Miscellaneous Information (Phosphorus Per Protocol) 1 each MISCELLANE DAILY PRN ; Protocol PRN Reason: Per Protocol Miscellaneous Information (Potassium Per Protocol) 1 each MISCELLANE DAILY PRN ; Protocol PRN Reason: Per Protocol Naloxone HCl (Narcan) 0.2 mg IV Q2M PRN PRN Reason: Opioid Reversal Objective - Vital Signs Vital signs: Vital Signs Temp 98.1 F 04/06/18 20:11 Pulse 92 04/06/18 20:40 Resp 20 04/06/18 20:11 BP 126/88 04/06/18 20:11 Pulse Ox 97 04/06/18 20:11 Intake & Output 04/06/18 04/06/18 04/07/18 06:59 18:59 06:59 Other: # Voids 1 - Exam PHYSICAL EXAMINATION: Patient is lying in the bed comfortably, no acute distress, awake alert and oriented.. HEENT: Normocephalic. Neck is supple. Pupils reactive. Nostrils clear. Oral cavity is moist. Ears reveal no drainage. Neck reveals no JVD, carotid bruits, or thyromegaly. CHEST EXAMINATION: Trachea is central. Symmetrical expansion. Bilateral basilar crackles. No wheezing. CARDIAC: Normal S1, S2 with no gallops. No murmurs ABDOMEN: Soft. Bowel sounds normal. No organomegaly. No abdominal bruits. Extremities: 2+ edema. No clubbing or cyanosis Neurologically awake, alert, oriented x3 with well-coordinated movements. No focal deficits noted Skin: No rash or skin lesions. Psychiatric: Cooperative. Nonsuicidal Musculoskeletal: No joint swelling or deformity. Normal range of motion. - Labs CBC & Chem 7: 04/05/18 02:58 04/06/18 07:20 Labs: Abnormal Lab Results - Last 24 Hours (Table) 04/06/18 Range/Units 07:20 Chloride 114 H (98-107) mmol/L Carbon Dioxide 16 L (22-30) mmol/L Glucose 103 H (74-99) mg/dL Microbiology - Last 24 Hours (Table) 04/03/18 12:20 Blood Culture - Preliminary Blood No Growth after 72 hours 04/03/18 12:20 Urine Culture - Final Urine,Voided Staphylococcus epidermidis Assessment and Plan Assessment: Left lower lobe pneumonia Sepsis/septic shock on admission requiring pressor support and fluid boluses. Off pressors support now Acute CHF with systolic ejection fraction 20-25% Hypokalemia and hypomagnesemia Infectious mononucleosis Splenomegaly Mild and Metabolic acidosis. Secondary to lactic acidosis Slightly elevated beta-hCG. Not trending up. Unlikely viable intrauterine . Ultrasound of the abdomen showed no evidence of intrauterine Plan: Patient be continued on antibiotics in the form of ceftriaxone and azithromycin. Continue with IV hydration and follow closely. Cardiology, Pulmonary and MECHANICAL EQUIPMENT TEST ENGINEER is following. Continue with current management and follow up closely. Prognosis is guarded. Time with Patient: Greater than 30
[2018-04-07 04:43] LABS: EBV - EA (IgG) 63.2 U/mL (<9.0); EBV - VCA IgM >160.0 U/mL (<36.0)
[2018-04-07 07:19] LABS: Anion Gap 12 mmol/L; Blood Urea Nitrogen 8 mg/dL (7-17); Calcium 8.4 mg/dL (8.4-10.2); Carbon Dioxide 20 mmol/L (22-30); Chloride 108 mmol/L (98-107); Glucose 80 mg/dL (74-99); Magnesium 1.5 mg/dL (1.6-2.3); Phosphorus 4.3 mg/dL (2.5-4.5); Potassium 3.9 mmol/L (3.5-5.1); Sodium 140 mmol/L (137-145)
[2018-04-07] MEDS: IPRATROPIUM-ALBUTEROL 3 ML NEB INHALATION SCH ×4 (07:21→21:08)
[2018-04-07] MEDS: IBUPROFEN 600 MG TAB PO PRN ×2 (07:35→18:26)
[2018-04-07] MEDS ORDERED: Magnesium Replacement Protocol 1 EACH MISC MISCELLANE PRN (07:50)
--- NOTE | 2018-04-07 08:47 | XR ---
EXAMINATION TYPE: XR chest 2V DATE OF EXAM: 04/07/2018 COMPARISON: 04/06/2018 HISTORY: 22-year-old female with pneumonia TECHNIQUE: Frontal and lateral views FINDINGS: Heart normal size. Obscuration of the lower descending thoracic aorta. Focal left greater than right bibasilar opacities with some interval improvement in aeration. Trace effusions. IMPRESSION: Persistent left greater than right bibasilar infiltrates show slight interval improvement. Trace effu sions.
[2018-04-07] MEDS: METOPROLOL TARTRATE 12.5 MG TAB PO SCH (08:51)
[2018-04-07] MEDS: guaiFENesin-DM 600/30MG 1 EACH TAB.ER.12H PO SCH ×2 (08:51→21:58)
[2018-04-07] MEDS: AZITHROMYCIN 500 MG TAB PO SCH (08:51)
[2018-04-07] MEDS: cefTRIAXone IN SWFI 1,000 MG/10 ML SYRINGE IVP SCH (08:53)
[2018-04-07] MEDS: MAGNESIUM SULFATE-D5W PMX 1 GM in DEXTROSE/WATER 1 100ML.BAG IVPB SCH ×2 (09:01→10:09)
--- NOTE | 2018-04-07 13:19 | P.PN ---
<CalebDeepti walker - Last Filed: 04/07/18 13:05> Subjective Progress Note Date: 04/07/18 Principal diagnosis: Extensive left lower lobe pneumonia. A 22-year-old female patient was hospitalized for an extensive left lower lobe pneumonia. During the same hospitalization the patient was diagnosed having a cardiomyopathy with global hypokinesis. The patient is still having cough congestion chest tightness and she is bringing up thick yellowish and greenish sputum. Afebrile for now. No significant chest pain. Breath sounds are quite diminished in the left lung base. A repeat chest x-ray was done today shows persistent lower lobe bilateral pulmonary infiltrates and the patient remains on a combination of Rocephin and Zithromax. During the same admission, the patient was found to have positive heterophile antibodies for infectious mononucleosis. She has some limited sore throat and splenomegaly. Note that she was initially in the intensive care unit for hypotension and currently she is hemodynamically stable. The patient has smoked cigarettes in the past and she used marijuana in the past. No pleurisy. No hemoptysis. She is not . The patient is seen again today 04/07/2018 in follow-up in the pediatric unit. She is awake and alert in no acute distress. She's been up ambulating to the bathroom. She is still quite weak and fatigued.S short of breath as compared to yesterday. She is maintaining good O2 saturations in the upper 90s on room air. She continues with a loose nonproductive cough. Preliminary sputum cultures revealing moderate gram-positive cocci and moderate gram-negative bacilli.she remains on Rocephin and Zithromax for now. Objective - Vital Signs Vital signs: Vital Signs Temp 98.1 F 04/07/18 12:25 Pulse 78 04/07/18 12:25 Resp 20 04/07/18 12:25 BP 114/73 04/07/18 12:25 Pulse Ox 98 04/07/18 12:25 Intake & Output 04/06/18 04/07/18 04/07/18 18:59 06:59 18:59 Other: # Voids 1 1 - Exam Gen. appearance, comfortable no acute distress. No signs of any acute respiratory failure Head exam was generally normal. There was no scleral icterus or corneal arcus. Mucous membranes were moist. Neck was supple and without jugular venous distension, thyromegaly, or carotid bruits. Carotids were easily palpable bilaterally. There was no adenopathy. Lungs sounds are diminished bilaterally especially in the lung bases along with some dullness to percussion left lung base Cardiac exam revealed the PMI to be normally situated and sized. The rhythm was regular and no extrasystoles were noted during several minutes of auscultation. The first and second heart sounds were normal and physiologic splitting of the second heart sound was noted. There were no murmurs, rubs, clicks, or gallops. Abdominal exam revealed normal bowel sounds. The abdomen was soft, non-tender, and without masses, organomegaly, or appreciable enlargement of the abdominal aorta. Examination of the extremities revealed easily palpable radial, femoral and pedal pulses. There was no cyanosis, clubbing or edema. Examination of the skin revealed no evidence of significant rashes, suspicious appearing nevi or other concerning lesions. Neurologically the patient is awake and alert and there is no focal neurological deficit Psychiatrically the patient has normal mood and affect - Labs CBC & Chem 7: 04/05/18 02:58 04/07/18 06:41 Labs: Abnormal Lab Results - Last 24 Hours (Table) 04/05/18 04/07/18 Range/Units 02:58 06:41 Chloride 108 H (98-107) mmol/L Carbon Dioxide 20 L (22-30) mmol/L Magnesium 1.5 L (1.6-2.3) mg/dL EBV Capsid Ag IgG Ab 179.0 H (<18.0) U/mL EBV Capsid Ag IgM Ab >160.0 H (<36.0) U/mL EBV Early Antigen IgG 63.2 H (<9.0) U/mL Microbiology - Last 24 Hours (Table) 04/06/18 16:22 Gram Stain - Preliminary Sputum Sputum Culture - Preliminary 04/03/18 12:20 Blood Culture - Preliminary Blood No Growth after 72 hours Assessment and Plan Assessment: Assessment 1 left lower lobe pneumonia, likely bacterial as the patient has extensive consolidation of left lung base. The patient had positive exposure to strep pneumo through a friend 5 days prior to her being sick. 2 acute hypotension likely secondary to sepsis, recovered 3 cardiomyopathy with global hypokinesis with ejection fraction between 20 and 25%. Rule out infectious/septic cardiomyopathy. Rule out viral 4 positive heterophile antibody raising the suspicion for infectious mononucleosis 5 dyspnea secondary to above 6 anemia 7 non-anion gap metabolic acidosis 8 acute hypoxic history failure secondary left lower lobe pneumonia, currently on room air. Plan The patient was seen and evaluated by Dr. Farr. Her chest x-ray continues to show persistent left greater than right bibasilar infiltrates with slight interval improvement. She is improved clinically as well. She is continued on Rocephin and azithromycin. Sputum cultures were reviewed. He did have discussion with cardiology is planning a repeat echocardiogram in the morning. She has been initiated on beta blockers. continue with her current treatment plan. We'll increase her activity as tolerated. We'll continue to follow make further recommendations based on her clinical status. I, the cosigning physician, performed a history & physical examination of the patient. Lungs sounds have crackles in the bilateral posterior bases more so on the left. Maintaining good O2 saturations in the 90s on room air. I discussed the assessment and plan of care with my nurse practitioner, Deepti Ellis. I attest to the above note as dictated by her. <Giuseppe Farr - Last Filed: 04/07/18 17:58> Objective - Vital Signs Vital signs: Vital Signs Temp 97.8 F 04/07/18 15:33 Pulse 76 04/07/18 17:02 Resp 20 04/07/18 15:33 BP 118/81 04/07/18 15:33 Pulse Ox 96 04/07/18 15:33 Intake & Output 04/06/18 04/07/18 04/07/18 18:59 06:59 18:59 Weight 73.3 kg Other: # Voids 1 1 - Labs CBC & Chem 7: 04/05/18 02:58 04/07/18 06:41 Labs: Abnormal Lab Results - Last 24 Hours (Table) 04/05/18 04/07/18 Range/Units 02:58 06:41 Chloride 108 H (98-107) mmol/L Carbon Dioxide 20 L (22-30) mmol/L Magnesium 1.5 L (1.6-2.3) mg/dL EBV Capsid Ag IgG Ab 179.0 H (<18.0) U/mL EBV Capsid Ag IgM Ab >160.0 H (<36.0) U/mL EBV Early Antigen IgG 63.2 H (<9.0) U/mL Microbiology - Last 24 Hours (Table) 04/03/18 12:20 Blood Culture - Preliminary Blood No Growth after 96 hours 04/06/18 16:22 Gram Stain - Preliminary Sputum Sputum Culture - Preliminary Assessment and Plan Assessment: The chest x-ray from today is showing bilateral lower lobe pneumonia. Clinically the patient is improved. Oxygenation is also improved. I do suspect a bacterial pneumonia. We'll continue to follow. The repeat echocardiogram will be done to reevaluate the left with ejection fraction. The patient was started on beta blockers. No hypotension. No other complaints otherwise for now.
[2018-04-07] MEDS: METOPROLOL TARTRATE 25 MG TAB PO SCH ×2 (16:41→21:57)
--- NOTE | 2018-04-07 17:03 | PN ---
PROGRESS NOTE This patient was admitted with a pneumonia and shock and patient also had a infectious mononucleosis. The patient's echocardiogram revealed moderate to severely impaired global hypokinesia. The patient is doing well. She is not in any acute respiratory distress. At present, patient is afebrile. The patient's heart rate is 80 to 90 per minute, blood pressure is 120/80 mmHg. First and second heart sounds are normal. Lungs reveal few coarse of the left base. The patient's Lopressor is increased to 25 mg t.i.d. and we will repeat the echocardiogram to assess the left ventricular systolic function tomorrow. MMODL / IJN: [id number] /
[2018-04-07] MEDS: DEXTROSE 5% IN WATER 1,000 ML with SODIUM BICARB (1 MEQ/ML) 50 ML IV SCH (18:10)
[2018-04-07] MEDS: ACETAMINOPHEN TAB 500 MG TAB PO PRN (21:58)
--- NOTE | 2018-04-07 22:00 | PN ---
PROGRESS NOTE DATE OF SERVICE: 04/07/2018 This 22-year-old woman who was admitted with high-grade fever and left lower lobe pneumonia and possible sepsis, septic shock, is being closely monitored. Patient also had some CHF, acute exacerbation, with ejection fraction about 20% to 25%. The Kimberly virus is positive. IgM levels are positive. Influenza is negative. RSV is also negative. Multiple consultants are following the patient, including Infectious Disease and Cardiology as well as Pulmonology. The patient is on a conservative line of management. The patient also had a positive test. Dr. Garcia has seen the patient for positive test. On exam, alert and oriented x3. Pulse is 80, blood pressure 118/81, respiration 20, temperature 97.3, pulse ox 96% on room air. HEENT: Conjunctivae normal. NECK: Jugular venous distention visible in the neck. CARDIOVASCULAR SYSTEM: S1, S2 muffled. RESPIRATORY SYSTEM: Breath sounds diminished at the bases. ABDOMEN: Soft, non-tender. No mass palpable. LEGS: No edema. No swelling. NERVOUS SYSTEM: No focal deficit. LABS: WBC 11.7, hemoglobin 9.7. Electrolyte are noted. Magnesium was 1.3, improved to 1.5. ASSESSMENT: 1. Left lower lobe pneumonia with severe sepsis, septic shock, hypotension. 2. 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 3. Acute infectious mononucleosis. 4. Hypokalemia. 5. Hypomagnesemia. 6. Splenomegaly. 7. Metabolic acidosis. 8. Slightly elevated beta-hCG, indicating possibly non-viable regnancy, per OIL FIELD PIPELINE SUPERVISOR. RECOMMENDATIONS AND DISCUSSION: In this 22-year-old woman who presented with multiple complex medical issues., we will monitor the patient closely, continue the current medications, continue with symptomatic treatment, continue with broad-spectrum IV antibiotics. I would also recommend monitoring fluid/electrolyte balance closely. Closely follow with multiple consultants. Repeat labs also will be ordered. The overall prognosis is guarded because of multiple complex medical issues. Further recommendations to follow. MMODL / IJN: [id number] /
--- NOTE | 2018-04-07 22:00 | P.PN ---
Subjective Progress Note Date: 04/07/18 22-year-old female presents to the emergency center after recent evaluation by her story analyst. She was having abdominal pain and there is evidence of a positive test. The patient continued to worsen and she gets to the inferior with chill but no rigor, her abdominal pain worsened and she presented to the emergency center. Evaluations performed including a transvaginal ultrasound without evidence of acute disease state. Evaluation of her was also performed and no intrauterine was noted. The patient has had 2 serum tests that were at about the same level. With ongoing the level should've increased and with loss of should have gone down. If this time the patient is now afebrile although he had a high-grade fever at admission. Feeling considerably better than playing a board game with her boyfriend, and only sexual partner. She was hypotensive requiring vasopressor therapy and is now off of vasopressor and feeling somewhat better. She is a thin young woman in it's unclear what her baseline blood pressure is. Currently he is certainly doing better and is regaining her appetite. 04/05/2018 patient is feeling better but has stated amount of coughing occurring at this time. She is to her fatigue. She had significant vasopressor requirements initially that have now resolved. Echocardiogram is noted to show evidence of the markedly diminished ejection fraction. Fortunately she is her feel somewhat better was able to eat her lunch without nausea or emesis. Will be transferred out of ICU today. 04/06/2018 the patient has had further improvement. Still is having some bouts of significant cough since May. She overall does feel better. Fever has resolved No other new complaints. Does still feel poorly 04/07/2018 patient is improved today, much less coughing and is less SOB and has no fever. The mucinex has helped mobilize the sputum. Objective - Vital Signs Vital signs: Vital Signs Temp 97.8 F 04/07/18 15:33 Pulse 78 04/07/18 21:19 Resp 20 04/07/18 15:33 BP 118/81 04/07/18 15:33 Pulse Ox 96 04/07/18 15:33 Intake & Output 04/07/18 04/07/18 04/08/18 06:59 18:59 06:59 Weight 73.3 kg Other: # Voids 1 1 - Exam pleasnt 22 year old woman felling better but still with HEENT: Anicteric conjunctiva are pink and moist nasal mucosa grossly intact without significant lesions, there is no thrush. Neck: The neck is supple without significant lymphadenopathy or thyromegaly. Lungs: Good bilateral air entry without significant crackles or wheezing. positive bronchial sounds at left base positive egophony no dullness Heart: Regular rate and rhythm with an audible S1-S2, no S3 no S4. There is no significant murmur click or rub, PMI was nondisplaced. Abdomen: Positive bowel sounds soft and tender of both upper quadrants without palpable masses or organomegaly. There was no guarding or rebound. Extremities: The upper extremities have excellent pulses they are symmetric, no significant petechiae or telangiectasia. No splinter hemorrhages were noted. The lower extremities are free from significant edema. The peripheral pulses were 2+ and symmetric. Neuro: Awake alert oriented to person place and time. There are no acute new gross focal sensory motor deficits. - Labs CBC & Chem 7: 04/05/18 02:58 04/07/18 06:41 Labs: Abnormal Lab Results - Last 24 Hours (Table) 04/05/18 04/07/18 Range/Units 02:58 06:41 Chloride 108 H (98-107) mmol/L Carbon Dioxide 20 L (22-30) mmol/L Magnesium 1.5 L (1.6-2.3) mg/dL EBV Capsid Ag IgG Ab 179.0 H (<18.0) U/mL EBV Capsid Ag IgM Ab >160.0 H (<36.0) U/mL EBV Early Antigen IgG 63.2 H (<9.0) U/mL Microbiology - Last 24 Hours (Table) 04/03/18 12:20 Blood Culture - Preliminary Blood No Growth after 96 hours 04/06/18 16:22 Gram Stain - Preliminary Sputum Sputum Culture - Preliminary Laboratory Results WBC 11.7 k/uL (4.0-11.0) H 04/05/18 02:58 RBC 3.38 m/uL (3.80-5.40) L 04/05/18 02:58 Hgb 9.7 gm/dL (11.4-16.0) L 04/05/18 02:58 Hct 28.5 % (34.0-46.0) L 04/05/18 02:58 MCV 84.4 fL (80.0-100.0) 04/05/18 02:58 MCH 28.8 pg (25.0-35.0) 04/05/18 02:58 MCHC 34.1 g/dL (31.0-37.0) 04/05/18 02:58 RDW 13.7 % (11.5-15.5) 04/05/18 02:58 Plt Count 153 k/uL (150-450) 04/05/18 02:58 Neutrophils % 81 % 04/05/18 02:58 Neutrophils % (Manual) 54 % 04/04/18 04:48 Band Neutrophils % 39 % 04/04/18 04:48 Lymphocytes % 14 % 04/05/18 02:58 Lymphocytes % (Manual) 5 % 04/04/18 04:48 Monocytes % 3 % 04/05/18 02:58 Monocytes % (Manual) 1 % 04/04/18 04:48 Eosinophils % 1 % 04/05/18 02:58 Basophils % 0 % 04/05/18 02:58 Metamyelocytes % 2 % 04/04/18 04:48 Neutrophils # 9.5 k/uL (1.3-7.7) H 04/05/18 02:58 Neutrophils # (Manual) 5.80 k/uL (1.3-7.7) 04/04/18 04:48 Lymphocytes # 1.6 k/uL (1.0-4.8) 04/05/18 02:58 Lymphocytes # (Manual) 0.32 k/uL (1.0-4.8) L 04/04/18 04:48 Monocytes # 0.3 k/uL (0-1.0) 04/05/18 02:58 Monocytes # (Manual) 0.06 k/uL (0-1.0) 04/04/18 04:48 Eosinophils # 0.1 k/uL (0-0.7) 04/05/18 02:58 Basophils # 0.0 k/uL (0-0.2) 04/05/18 02:58 Metamyelocytes # (Man) 0.13 k/uL (0) H 04/04/18 04:48 Myelocytes # (Manual) 0.00 k/uL (0) 04/04/18 04:48 Nucleated RBCs 0 /100 WBC (0-0) 04/04/18 04:48 Manual Slide Review Performed 04/04/18 04:48 Fibrinogen 448 mg/dL (200-500) 04/04/18 04:48 D-Dimer 0.74 mg/L FEU (<0.60) H 04/03/18 19:30 Sodium 140 mmol/L (137-145) 04/07/18 06:41 Potassium 3.9 mmol/L (3.5-5.1) 04/07/18 06:41 Chloride 108 mmol/L (98-107) H 04/07/18 06:41 Carbon Dioxide 20 mmol/L (22-30) L 04/07/18 06:41 Anion Gap 12 mmol/L 04/07/18 06:41 BUN 8 mg/dL (7-17) 04/07/18 06:41 Creatinine 0.58 mg/dL (0.52-1.04) 04/07/18 06:41 Est GFR (CKD-EPI)AfAm >90 (>60 ml/min/1.73 sqM) 04/07/18 06:41 Est GFR (CKD-EPI)NonAf >90 (>60 ml/min/1.73 sqM) 04/07/18 06:41 Glucose 80 mg/dL (74-99) 04/07/18 06:41 POC Glucose (mg/dL) 113 mg/dL (75-99) H 04/04/18 00:56 POC Glu Meteorology Teacher ID Connie Zuluaga 04/04/18 00:56 Plasma Lactic Acid [place] 2.0 mmol/L (0.7-2.0) 04/04/18 00:19 Calcium 8.4 mg/dL (8.4-10.2) 04/07/18 06:41 Phosphorus 4.3 mg/dL (2.5-4.5) 04/07/18 06:41 Magnesium 1.5 mg/dL (1.6-2.3) L 04/07/18 06:41 Ferritin 67.4 ng/mL (10.0-291.0) 04/04/18 04:48 Total Bilirubin 1.9 mg/dL (0.2-1.3) H 04/04/18 04:48 AST 16 U/L (14-36) 04/04/18 04:48 ALT 14 U/L (9-52) 04/04/18 04:48 Alkaline Phosphatase 56 U/L (38-126) 04/04/18 04:48 Troponin I <0.012 ng/mL (0.000-0.034) 04/04/18 04:48 Total Protein 4.9 g/dL (6.3-8.2) L 04/04/18 04:48 Albumin 2.7 g/dL (3.5-5.0) L 04/04/18 04:48 Triglycerides 76 mg/dL (<150) 04/04/18 04:48 Amylase 42 U/L (30-110) 04/03/18 12:20 Lipase 31 U/L (23-300) 04/03/18 12:20 HCG, Quant 60.1 mIU/mL 04/06/18 07:20 Cortisol 56 ug/dL 04/04/18 04:48 Urine Color Yellow 04/03/18 12:20 Urine Appearance Clear (Clear) 04/03/18 12:20 Urine pH 7.0 (5.0-8.0) 04/03/18 12:20 Ur Specific [place] 1.019 (1.001-1.035) 04/03/18 12:20 Urine Protein Trace (Negative) H 04/03/18 12:20 Urine Glucose (UA) Negative (Negative) 04/03/18 12:20 Urine Ketones Negative (Negative) 04/03/18 12:20 Urine Blood Negative (Negative) 04/03/18 12:20 Urine Nitrite Negative (Negative) 04/03/18 12:20 Urine Bilirubin Negative (Negative) 04/03/18 12:20 Urine Urobilinogen 2.0 mg/dL (<2.0) 04/03/18 12:20 Ur Leukocyte Esterase Negative (Negative) 04/03/18 12:20 Urine HCG, Qual Detected (Not Detectd) 04/03/18 12:20 Urine Opiates Screen Negative ng/mL (Negative) 04/04/18 10:30 Urine Methadone Screen Negative ng/mL (Negative) 04/04/18 10:30 Ur Propoxyphene Screen Negative ng/mL (Negative) 04/04/18 10:30 Urine Barbiturates Negative ng/mL (Negative) 04/04/18 10:30 Ur Phencyclidine Scrn Negative ng/mL (Negative) 04/04/18 10:30 Ur Amphetamine Screen Negative ng/mL (Negative) 04/04/18 10:30 U Benzodiazepines Scrn Negative ng/mL (Negative) 04/04/18 10:30 Urine Cocaine Screen Negative ng/mL (Negative) 04/04/18 10:30 U Cannabinoids Screen Negative ng/mL (Negative) 04/04/18 10:30 Urine Alcohol Negative mg/dL (Negative) 04/04/18 10:30 EBV Capsid Ag IgG Ab 179.0 U/mL (<18.0) H 04/05/18 02:58 EBV Capsid Ag IgM Ab >160.0 U/mL (<36.0) H 04/05/18 02:58 EBV Early Antigen IgG 63.2 U/mL (<9.0) H 04/05/18 02:58 EBV Nuclear Ag IgG Ab 6.0 U/mL (<18.0) 04/05/18 02:58 Heterophile Antibody Positive (Negative) 04/04/18 00:19 Influenza Type A RNA Not Detected (Not Detectd) 04/03/18 15:20 Influenza Type B (PCR) Not Detected (Not Detectd) 04/03/18 15:20 RSV (PCR) Negative (Negative) 04/07/18 15:17 Microbiology 04/03/18 12:20 Blood Blood Culture - Preliminary No Growth after 96 hours 04/06/18 16:22 Sputum Gram Stain - Preliminary 04/06/18 16:22 Sputum Sputum Culture - Preliminary 04/03/18 12:20 Urine,Voided Urine Culture - Final Staphylococcus epidermidis - Imaging and Cardiology Chest x-ray: report reviewed (bibasilar infiltrates) Assessment and Plan (1) Positive test Current Visit: Yes Status: Acute Code(s): Z32.01 - ENCOUNTER FOR TEST, RESULT POSITIVE SNOMED Code(s): 247729751 (2) EBV infection Current Visit: Yes Status: Acute Code(s): B27.90 - INFECTIOUS MONONUCLEOSIS , UNSPECIFIED WITHOUT COMPLICATION SNOMED Code(s): 481845701 (3) LLL pneumonia Narrative/Plan: 22 year old woman who was seen by milking system installer for ABD pain and was found to have positive test, and with the pain was admitted and has had testing including transvaginal US without evidence of pathology. US failed to reveal IUP. Pateint now feeling better and hypotension has improved off of levophed. Is improving but anxious. Informed that if EBV is confirmed then likely false positive test from the viral infection. Does have new LLL pneumonia and current antibiotic therapy is adequate. Patient and boyfriends questions answered. 04/05/2018 reveals the patient be feeling better. We'll move out of ICU. He continues to have cough with no sputum production. With her Kimberly-Wellington viral infection is likely occurring at this time is probably responsible for her feeling quite so poorly. As a pneumonia. Echocardiogram was performed showing evidence of the low ejection fraction. This will need follow-up. Antibiotic therapy currently is on Rocephin and azithromycin and this will continue at this time. Confirmation of the Kimberly-Wellington viral infection is in progress. And there is a potential that this could be causing a false positive test. 04/06/2018 patient has improved. She's now on the medical floor. Still feels quite weak and has been seen by cardiology. Mucinex is added to help her with her cough and sputum production. Not having any further fevers. Appears to be having a good clinical response to the antibiotic therapy. Kimberly-Wellington viral testing in progress. Remains concerned about false positive test. 04/07/2018 reveals the patient be feeling slightly better today. She is less short of breath. Mucinex as help her mobilize her secretions. She is having no further fever. We have confirmed that the patient does have Kimberly-Wellington viral infection with the panel. The VCA IgM is positive. Expect over the next several weeks that she will further improved. As for antibiotic therapy currently on Rocephin and oral azithromycin. Sputum culture is pending which may further help direct antibiotic therapy for discharge. Blood cultures are negative. A follow-up echocardiogram is planned for tomorrow to evaluate recovery of her ejection fraction. Current Visit: Yes Status: Acute Code(s): J18.1 - LOBAR PNEUMONIA, UNSPECIFIED ORGANISM SNOMED Code(s): 915009545
[2018-04-08 07:01] LABS: Basophils % (A) 1 %; Eosinophils # (A) 0.3 k/uL (0-0.7); Eosinophils % (A) 7 %; HCT 31.8 % (34.0-46.0); HGB 10.5 gm/dL (11.4-16.0); Lymphocytes # (A) 1.7 k/uL (1.0-4.8); Lymphocytes % (A) 42 %; MCH 27.5 pg (25.0-35.0); MCHC 33.1 g/dL (31.0-37.0); MCV 82.8 fL (80.0-100.0); Mean Platelet Volume 7.2; Monocytes # (A) 0.4 k/uL (0-1.0); Monocytes % (A) 9 %; Neutrophils # (A) 1.6 k/uL (1.3-7.7); Neutrophils % (A) 38 %; Platelet Count 262 k/uL (150-450); RBC 3.84 m/uL (3.80-5.40); RDW 13.7 % (11.5-15.5); WBC 4.2 k/uL (4.0-11.0)
[2018-04-08 07:17] LABS: Anion Gap 12 mmol/L; Blood Urea Nitrogen 12 mg/dL (7-17); Carbon Dioxide 25 mmol/L (22-30); Chloride 105 mmol/L (98-107); Glucose 81 mg/dL (74-99); Magnesium 1.8 mg/dL (1.6-2.3); Phosphorus 4.9 mg/dL (2.5-4.5); Potassium 4.4 mmol/L (3.5-5.1); Sodium 142 mmol/L (137-145)
--- NOTE | 2018-04-08 07:18 | XR ---
EXAMINATION TYPE: XR chest 1V DATE OF EXAM: 04/08/2018 COMPARISON: 04/07/2018 HISTORY: History of pneumonia. Shortness of breath. TECHNIQUE: Single frontal view of the chest is obtained. FINDINGS: Continued improved aeration of the lung bases although patchy bibasilar opacities remain, left greater than right. There are suspicion for a trace pleural effusions with blunting of the costo phrenic angles. Remainder the lungs are clear. Cardiomediastinal silhouette is within normal limits. Osseous structures are intact. IMPRESSION: Continued improvement from the prior with residual mild bibasilar airspace disease most compatible with multifocal pneumonia and trace parapneumonic effusions.
[2018-04-08] MEDS: IPRATROPIUM-ALBUTEROL 3 ML NEB INHALATION SCH ×4 (07:31→19:38)
[2018-04-08] MEDS: guaiFENesin-DM 600/30MG 1 EACH TAB.ER.12H PO SCH ×2 (08:52→22:34)
[2018-04-08] MEDS: AZITHROMYCIN 500 MG TAB PO SCH (08:52)
[2018-04-08] MEDS: cefTRIAXone IN SWFI 1,000 MG/10 ML SYRINGE IVP SCH (08:52)
[2018-04-08] MEDS: METOPROLOL TARTRATE 25 MG TAB PO SCH ×3 (08:53→22:37)
[2018-04-08] MEDS: DEXTROSE 5% IN WATER 1,000 ML with SODIUM BICARB (1 MEQ/ML) 50 ML IV SCH (11:00)
--- NOTE | 2018-04-08 11:25 | ECHOF ---
Referral Reason:assess LV function MEASUREMENTS -------- HEIGHT: 170.2 cm WEIGHT: 73.0 kg BP: 118/73 IVSd: 0.7 cm (0.6 - 1.1) LVIDd: 4.9 cm (3.9 - 5.3) LVPWd: 0.8 cm (0.6 - 1.1) IVSs: 0.8 cm LVIDs: 3.7 cm LVPWs: 1.1 cm LAESV Index (A-L): 28.16 ml/m Ao Diam: 3.0 cm (2.0 - 3.7) AV Cusp: 2.2 cm (1.5 - 2.6) LA Diam: 2.9 cm (2.7 - 3.8) MV EXCURSION: 22.126 mm (> 18.000) MV EF SLOPE: 147 mm/s (70 - 150) EPSS: 0.8 cm MV E Emre: 0.92 m/s MV DecT: 218 ms MV A Emer: 0.45 m/s MV E/A Ratio: 2.06 RAP: 5.00 mmHg RVSP: 26.58 mmHg FINDINGS -------- Sinus rhythm. This was a technically good study. The left ventricular size is normal. Left ventricular wall thickness is normal. Overall left vent ricular systolic function is mildly impaired with, an EF between 45 - 50 %. The right ventricle is normal in size and function. Normal LA size by volume 22+/-6 ml/m2. The right atrium is normal in size. The aortic valve is trileaflet, and appears structurally normal. No aortic stenosis or regurgitation. There is trace mitral regurgitation. Trace tricuspid regurgitation present. The right ventricular systolic pressure, as measured by Dopp ler, is 26.58mmHg. Pulmonic valve appears structurally normal. The aortic root size is normal. Normal inferior vena cava with normal inspiratory collapse consistent with estimated right atrial pre ssure of 5 mmHg. The pericardium is normal. CONCLUSIONS -------- 1. Sinus rhythm. 2. This was a technically good study. 3. The left ventricular size is normal. 4. Left ventricular wall thickness is normal. 5. Overall left ventricular systolic function is mildly impaired with, an EF between 45 - 50 %. 6. The right ventricle is normal in size and function. 7. Normal LA size by volume 22+/-6 ml/m2. 8. The right atrium is normal in size. 9. The aortic valve is trileaflet, and appears structurally normal. No aortic stenosis or regurgitati on. 10. There is trace mitral regurgitation. 11. Trace tricuspid regurgitation present. 12. The right ventricular systolic pressure, as measured by Doppler, is 26.58mmHg. 13. Pulmonic valve appears structurally normal. 14. The aortic root size is normal. 15. Normal inferior vena cava with normal inspiratory collapse consistent with estimated right atrial pressure of 5 mmHg. 16. The pericardium is normal. LIFE SCIENCES DIRECTOR: Yasmin Marshall RDCS
--- NOTE | 2018-04-08 13:44 | P.PN ---
Subjective Progress Note Date: 04/08/18 Principal diagnosis: Extensive left lower lobe pneumonia. A 22-year-old female patient was hospitalized for an extensive left lower lobe pneumonia. During the same hospitalization the patient was diagnosed having a cardiomyopathy with global hypokinesis. The patient is still having cough congestion chest tightness and she is bringing up thick yellowish and greenish sputum. Afebrile for now. No significant chest pain. Breath sounds are quite diminished in the left lung base. A repeat chest x-ray was done today shows persistent lower lobe bilateral pulmonary infiltrates and the patient remains on a combination of Rocephin and Zithromax. During the same admission, the patient was found to have positive heterophile antibodies for infectious mononucleosis. She has some limited sore throat and splenomegaly. Note that she was initially in the intensive care unit for hypotension and currently she is hemodynamically stable. The patient has smoked cigarettes in the past and she used marijuana in the past. No pleurisy. No hemoptysis. She is not . The patient is seen again today 04/07/2018 in follow-up in the pediatric unit. She is awake and alert in no acute distress. She's been up ambulating to the bathroom. She is still quite weak and fatigued.S short of breath as compared to yesterday. She is maintaining good O2 saturations in the upper 90s on room air. She continues with a loose nonproductive cough. Preliminary sputum cultures revealing moderate gram-positive cocci and moderate gram-negative bacilli.she remains on Rocephin and Zithromax for now. The patient is seen today 04/08/2018 in follow-up in the pediatric unit. She is currently awake and alert in no acute distress. She is up quite a bit stronger today as compared to yesterday. Breathing easier. Been taking good O2 saturations in the 90s on room air. She's been afebrile. Hemodynamically stable. Still with a loose nonproductive cough. Chest x-ray shows continued improvement in the residual mild bibasilar airspace disease. Sputum culture is still pending. Preliminary shows moderate gram-positive cocci, moderate gram- negative bacilli. Serum are RSV was negative. No leukocytosis. Echocardiogram is improved as well with only mildly impaired left ventricular systolic function with ejection fraction 45-50%. No noted hypokinesia. Objective - Vital Signs Vital signs: Vital Signs Temp 98.0 F 04/08/18 08:34 Pulse 77 04/08/18 11:44 Resp 16 04/08/18 08:34 BP 116/74 04/08/18 08:34 Pulse Ox 94 L 04/08/18 08:34 Intake & Output 04/07/18 04/08/18 04/08/18 18:59 06:59 18:59 Weight 73.3 kg Other: Voiding Method Toilet # Voids 1 1 - Exam Gen. appearance, comfortable no acute distress. No signs of any acute respiratory failure Head exam was generally normal. There was no scleral icterus or corneal arcus. Mucous membranes were moist. Neck was supple and without jugular venous distension, thyromegaly, or carotid bruits. Carotids were easily palpable bilaterally. There was no adenopathy. Lungs sounds are diminished bilaterally especially in the lung bases along with some dullness to percussion left lung base Cardiac exam revealed the PMI to be normally situated and sized. The rhythm was regular and no extrasystoles were noted during several minutes of auscultation. The first and second heart sounds were normal and physiologic splitting of the second heart sound was noted. There were no murmurs, rubs, clicks, or gallops. Abdominal exam revealed normal bowel sounds. The abdomen was soft, non-tender, and without masses, organomegaly, or appreciable enlargement of the abdominal aorta. Examination of the extremities revealed easily palpable radial, femoral and pedal pulses. There was no cyanosis, clubbing or edema. Examination of the skin revealed no evidence of significant rashes, suspicious appearing nevi or other concerning lesions. Neurologically the patient is awake and alert and there is no focal neurological deficit Psychiatrically the patient has normal mood and affect - Labs CBC & Chem 7: 04/08/18 06:48 04/08/18 06:48 Labs: Abnormal Lab Results - Last 24 Hours (Table) 04/08/18 04/08/18 Range/Units 06:48 06:48 Hgb 10.5 L (11.4-16.0) gm/dL Hct 31.8 L (34.0-46.0) % Phosphorus 4.9 H (2.5-4.5) mg/dL Microbiology - Last 24 Hours (Table) 04/03/18 12:20 Blood Culture - Preliminary Blood No Growth after 96 hours Assessment and Plan Assessment: Assessment 1 left lower lobe pneumonia, likely bacterial as the patient has extensive consolidation of left lung base. Preliminary sputum cultures revealed moderate gram-positive cocci, moderate gram-negative bacilli. 2 acute hypotension likely secondary to sepsis, recovered 3 cardiomyopathy with global hypokinesis with ejection fraction between 20 and 25%. Rule out infectious/septic cardiomyopathy. Rule out viral follow-up echocardiogram on 04/08/2018 reveals no evidence of hypokinesia and mildly impaired left ventricular systolic function with ejection fraction 45-50%. 4 positive heterophile antibody raising the suspicion for infectious mononucleosis 5 dyspnea secondary to above 6 anemia 7 non-anion gap metabolic acidosis 8 acute hypoxic history failure secondary left lower lobe pneumonia, currently on room air. Plan The patient was seen and evaluated by Dr. Farr. Her chest x-ray continues to show slight interval improvement. She is improved clinically as well. She is continued on Rocephin and azithromycin. Sputum cultures were reviewed. Repeat echocardiogram show significant improvement. EF 45-50%. She has been initiated on beta blockers. We'll increase her activity as tolerated. Possible discharge in the a.m. We'll continue to follow make further recommendations based on her clinical status. I, the cosigning physician, performed a history & physical examination of the patient. Lungs sounds have crackles in the bilateral posterior bases more so on the left. Maintaining good O2 saturations in the 90s on room air. I discussed the assessment and plan of care with my nurse practitioner, Deepti Ellis. I attest to the above note as dictated by her.
[2018-04-08] MEDS: IBUPROFEN 600 MG TAB PO PRN (17:52)
--- NOTE | 2018-04-08 17:52 | PN ---
PROGRESS NOTE DATE OF SERVICE: 04/08/2018 This 22-year-old woman who was admitted with significant bilateral pneumonia also had possibly cardiomyopathy also infectious mononucleosis was positive. Ejection fraction was 20 to 25%, but improved to 40 to 45 and the patient is feeling much better. Patient improved on broad-spectrum IV antibiotics. The patient followed by multiple consultants including Infectious Disease, Cardiology and as well as Pulmonology. PAST MEDICAL HISTORY: Reviewed. PHYSICAL EXAM: Patient is alert, oriented x3. Pulse is 110, blood pressure is 106/69, respirations 20, temperature is 97.2, pulse ox 94% on room air. HEENT: Conjunctivae normal. NECK: No jugular venous distention. CARDIOVASCULAR: S1, S2. RESPIRATORY: Breath sounds diminished in the bases. A few scattered rhonchi and crackles. ABDOMEN: Soft, nontender. No mass palpable. LEGS: No edema. NERVOUS SYSTEM: No focal deficits. LABS: 2D echo noted and the chest x-ray personally reviewed. Other labs are noted. ASSESSMENT: 1. Left lower pneumonia with severe sepsis, septic shock, hypotension, present on admission. 2. 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 3. Acute infectious mononucleosis. 4. Hypokalemia. 5. Hypomagnesemia. 6. Splenomegaly. 7. Metabolic acidosis. 8. Slightly elevated beta HCG indicating possibly nonviable per APPLIED PSYCHOLOGY CHAIR. RECOMMENDATIONS AND DISCUSSION: I recommend to continue current management and symptomatic treatment. Continue the bronchodilators, some beta blockers. Continue with the IV antibiotics, increase ambulation. Closely follow with Pulmonary and as well as Cardiology. Guarded prognosis because of multiple complex medical issues. Further recommendations to follow. MMODL / IJN: [id number] /
--- NOTE | 2018-04-08 18:22 | PN ---
PROGRESS NOTE This patient was admitted with pneumonia with septic shock as well as infectious mononucleosis. She is feeling better and stronger. The patient had initially significantly impaired left ventricular systolic function which could be secondary to sepsis. Echocardiogram done today now shows ejection fraction in the range of 45% to 50%. She is feeling stronger. Denies any shortness of breath. Blood pressure is 116/74 mmHg. First and second heart sounds are normal. Lungs examination revealed a few crackles at the left base. We will continue the patient on current dose of Lopressor. We will now see her p.r.n. and follow her as outpatient. MMODL / IJN: [id number] /
--- NOTE | 2018-04-08 21:43 | P.PN ---
Subjective Progress Note Date: 04/08/18 22-year-old female presents to the emergency center after recent evaluation by her weeder thinner. She was having abdominal pain and there is evidence of a positive test. The patient continued to worsen and she gets to the inferior with chill but no rigor, her abdominal pain worsened and she presented to the emergency center. Evaluations performed including a transvaginal ultrasound without evidence of acute disease state. Evaluation of her was also performed and no intrauterine was noted. The patient has had 2 serum tests that were at about the same level. With ongoing the level should've increased and with loss of should have gone down. If this time the patient is now afebrile although he had a high-grade fever at admission. Feeling considerably better than playing a board game with her boyfriend, and only sexual partner. She was hypotensive requiring vasopressor therapy and is now off of vasopressor and feeling somewhat better. She is a thin young woman in it's unclear what her baseline blood pressure is. Currently he is certainly doing better and is regaining her appetite. 04/05/2018 patient is feeling better but has stated amount of coughing occurring at this time. She is to her fatigue. She had significant vasopressor requirements initially that have now resolved. Echocardiogram is noted to show evidence of the markedly diminished ejection fraction. Fortunately she is her feel somewhat better was able to eat her lunch without nausea or emesis. Will be transferred out of ICU today. 04/06/2018 the patient has had further improvement. Still is having some bouts of significant cough since May. She overall does feel better. Fever has resolved No other new complaints. Does still feel poorly 04/07/2018 patient is improved today, much less coughing and is less SOB and has no fever. The mucinex has helped mobilize the sputum. 04/08/2018 patient has further improvement. Still having cough with sputum production. She is afebrile energy level is improving. Echocardiogram has been performed. Objective - Vital Signs Vital signs: Vital Signs Temp 98.5 F 04/08/18 18:57 Pulse 74 04/08/18 19:47 Resp 16 04/08/18 18:57 BP 95/63 04/08/18 18:57 Pulse Ox 94 L 04/08/18 18:57 Intake & Output 04/08/18 04/08/18 04/09/18 06:59 18:59 06:59 Intake Total 1160 Balance 1160 Intake: Oral 1160 Other: Voiding Method Toilet # Voids 1 - Exam pleasnt 22 year old woman felling better but still with HEENT: Anicteric conjunctiva are pink and moist nasal mucosa grossly intact without significant lesions, there is no thrush. Neck: The neck is supple without significant lymphadenopathy or thyromegaly. Lungs: Good bilateral air entry without wheezing. positive bronchial sounds at the bilateral bases with positive egophony no dullness Heart: Regular rate and rhythm with an audible S1-S2, no S3 no S4. There is no significant murmur click or rub, PMI was nondisplaced. Abdomen: Positive bowel sounds soft and tender of both upper quadrants without palpable masses or organomegaly. There was no guarding or rebound. Extremities: The upper extremities have excellent pulses they are symmetric, no significant petechiae or telangiectasia. No splinter hemorrhages were noted. The lower extremities are free from significant edema. The peripheral pulses were 2+ and symmetric. Neuro: Awake alert oriented to person place and time. There are no acute new gross focal sensory motor deficits. - Labs CBC & Chem 7: 04/08/18 06:48 04/08/18 06:48 Labs: Abnormal Lab Results - Last 24 Hours (Table) 04/08/18 04/08/18 Range/Units 06:48 06:48 Hgb 10.5 L (11.4-16.0) gm/dL Hct 31.8 L (34.0-46.0) % Phosphorus 4.9 H (2.5-4.5) mg/dL Microbiology - Last 24 Hours (Table) 04/03/18 12:20 Blood Culture - Preliminary Blood No Growth after 120 hours Laboratory Results WBC 4.2 k/uL (4.0-11.0) 04/08/18 06:48 RBC 3.84 m/uL (3.80-5.40) 04/08/18 06:48 Hgb 10.5 gm/dL (11.4-16.0) L 04/08/18 06:48 Hct 31.8 % (34.0-46.0) L 04/08/18 06:48 MCV 82.8 fL (80.0-100.0) 04/08/18 06:48 MCH 27.5 pg (25.0-35.0) 04/08/18 06:48 MCHC 33.1 g/dL (31.0-37.0) 04/08/18 06:48 RDW 13.7 % (11.5-15.5) 04/08/18 06:48 Plt Count 262 k/uL (150-450) 04/08/18 06:48 Neutrophils % 38 % 04/08/18 06:48 Neutrophils % (Manual) 54 % 04/04/18 04:48 Band Neutrophils % 39 % 04/04/18 04:48 Lymphocytes % 42 % 04/08/18 06:48 Lymphocytes % (Manual) 5 % 04/04/18 04:48 Monocytes % 9 % 04/08/18 06:48 Monocytes % (Manual) 1 % 04/04/18 04:48 Eosinophils % 7 % 04/08/18 06:48 Basophils % 1 % 04/08/18 06:48 Metamyelocytes % 2 % 04/04/18 04:48 Neutrophils # 1.6 k/uL (1.3-7.7) 04/08/18 06:48 Neutrophils # (Manual) 5.80 k/uL (1.3-7.7) 04/04/18 04:48 Lymphocytes # 1.7 k/uL (1.0-4.8) 04/08/18 06:48 Lymphocytes # (Manual) 0.32 k/uL (1.0-4.8) L 04/04/18 04:48 Monocytes # 0.4 k/uL (0-1.0) 04/08/18 06:48 Monocytes # (Manual) 0.06 k/uL (0-1.0) 04/04/18 04:48 Eosinophils # 0.3 k/uL (0-0.7) 04/08/18 06:48 Basophils # 0.0 k/uL (0-0.2) 04/08/18 06:48 Metamyelocytes # (Man) 0.13 k/uL (0) H 04/04/18 04:48 Myelocytes # (Manual) 0.00 k/uL (0) 04/04/18 04:48 Nucleated RBCs 0 /100 WBC (0-0) 04/04/18 04:48 Manual Slide Review Performed 04/04/18 04:48 Fibrinogen 448 mg/dL (200-500) 04/04/18 04:48 D-Dimer 0.74 mg/L FEU (<0.60) H 04/03/18 19:30 Sodium 142 mmol/L (137-145) 04/08/18 06:48 Potassium 4.4 mmol/L (3.5-5.1) 04/08/18 06:48 Chloride 105 mmol/L (98-107) 04/08/18 06:48 Carbon Dioxide 25 mmol/L (22-30) 04/08/18 06:48 Anion Gap 12 mmol/L 04/08/18 06:48 BUN 12 mg/dL (7-17) 04/08/18 06:48 Creatinine 0.58 mg/dL (0.52-1.04) 04/08/18 06:48 Est GFR (CKD-EPI)AfAm >90 (>60 ml/min/1.73 sqM) 04/08/18 06:48 Est GFR (CKD-EPI)NonAf >90 (>60 ml/min/1.73 sqM) 04/08/18 06:48 Glucose 81 mg/dL (74-99) 04/08/18 06:48 POC Glucose (mg/dL) 113 mg/dL (75-99) H 04/04/18 00:56 POC Glu [employer] Developer ID Connie Zuluaga 04/04/18 00:56 Plasma Lactic Acid [place] 2.0 mmol/L (0.7-2.0) 04/04/18 00:19 Calcium 9.0 mg/dL (8.4-10.2) 04/08/18 06:48 Phosphorus 4.9 mg/dL (2.5-4.5) H 04/08/18 06:48 Magnesium 1.8 mg/dL (1.6-2.3) 04/08/18 06:48 Ferritin 67.4 ng/mL (10.0-291.0) 04/04/18 04:48 Total Bilirubin 1.9 mg/dL (0.2-1.3) H 04/04/18 04:48 AST 16 U/L (14-36) 04/04/18 04:48 ALT 14 U/L (9-52) 04/04/18 04:48 Alkaline Phosphatase 56 U/L (38-126) 04/04/18 04:48 Troponin I <0.012 ng/mL (0.000-0.034) 04/04/18 04:48 Total Protein 4.9 g/dL (6.3-8.2) L 04/04/18 04:48 Albumin 2.7 g/dL (3.5-5.0) L 04/04/18 04:48 Triglycerides 76 mg/dL (<150) 04/04/18 04:48 Amylase 42 U/L (30-110) 04/03/18 12:20 Lipase 31 U/L (23-300) 04/03/18 12:20 HCG, Quant 60.1 mIU/mL 04/06/18 07:20 Cortisol 56 ug/dL 04/04/18 04:48 Urine Color Yellow 04/03/18 12:20 Urine Appearance Clear (Clear) 04/03/18 12:20 Urine pH 7.0 (5.0-8.0) 04/03/18 12:20 Ur Specific [place] 1.019 (1.001-1.035) 04/03/18 12:20 Urine Protein Trace (Negative) H 04/03/18 12:20 Urine Glucose (UA) Negative (Negative) 04/03/18 12:20 Urine Ketones Negative (Negative) 04/03/18 12:20 Urine Blood Negative (Negative) 04/03/18 12:20 Urine Nitrite Negative (Negative) 04/03/18 12:20 Urine Bilirubin Negative (Negative) 04/03/18 12:20 Urine Urobilinogen 2.0 mg/dL (<2.0) 04/03/18 12:20 Ur Leukocyte Esterase Negative (Negative) 04/03/18 12:20 Urine HCG, Qual Detected (Not Detectd) 04/03/18 12:20 Urine Opiates Screen Negative ng/mL (Negative) 04/04/18 10:30 Urine Methadone Screen Negative ng/mL (Negative) 04/04/18 10:30 Ur Propoxyphene Screen Negative ng/mL (Negative) 04/04/18 10:30 Urine Barbiturates Negative ng/mL (Negative) 04/04/18 10:30 Ur Phencyclidine Scrn Negative ng/mL (Negative) 04/04/18 10:30 Ur Amphetamine Screen Negative ng/mL (Negative) 04/04/18 10:30 U Benzodiazepines Scrn Negative ng/mL (Negative) 04/04/18 10:30 Urine Cocaine Screen Negative ng/mL (Negative) 04/04/18 10:30 U Cannabinoids Screen Negative ng/mL (Negative) 04/04/18 10:30 Urine Alcohol Negative mg/dL (Negative) 04/04/18 10:30 EBV Capsid Ag IgG Ab 179.0 U/mL (<18.0) H 04/05/18 02:58 EBV Capsid Ag IgM Ab >160.0 U/mL (<36.0) H 04/05/18 02:58 EBV Early Antigen IgG 63.2 U/mL (<9.0) H 04/05/18 02:58 EBV Nuclear Ag IgG Ab 6.0 U/mL (<18.0) 04/05/18 02:58 Heterophile Antibody Positive (Negative) 04/04/18 00:19 Influenza Type A RNA Not Detected (Not Detectd) 04/03/18 15:20 Influenza Type B (PCR) Not Detected (Not Detectd) 04/03/18 15:20 RSV (PCR) Negative (Negative) 04/07/18 15:17 Microbiology 04/03/18 12:20 Blood Blood Culture - Preliminary No Growth after 120 hours 04/06/18 16:22 Sputum Gram Stain - Preliminary 04/06/18 16:22 Sputum Sputum Culture - Preliminary 04/03/18 12:20 Urine,Voided Urine Culture - Final Staphylococcus epidermidis Assessment and Plan (1) Positive test Current Visit: Yes Status: Acute Code(s): Z32.01 - ENCOUNTER FOR TEST, RESULT POSITIVE SNOMED Code(s): 387306418 (2) EBV infection Current Visit: Yes Status: Acute Code(s): B27.90 - INFECTIOUS MONONUCLEOSIS , UNSPECIFIED WITHOUT COMPLICATION SNOMED Code(s): 139915597 (3) LLL pneumonia Narrative/Plan: 22 year old woman who was seen by collection systems technician for ABD pain and was found to have positive test, and with the pain was admitted and has had testing including transvaginal US without evidence of pathology. US failed to reveal IUP. Pateint now feeling better and hypotension has improved off of levophed. Is improving but anxious. Informed that if EBV is confirmed then likely false positive test from the viral infection. Does have new LLL pneumonia and current antibiotic therapy is adequate. Patient and boyfriends questions answered. 04/05/2018 reveals the patient be feeling better. We'll move out of ICU. He continues to have cough with no sputum production. With her [place] viral infection is likely occurring at this time is probably responsible for her feeling quite so poorly. As a pneumonia. Echocardiogram was performed showing evidence of the low ejection fraction. This will need follow-up. Antibiotic therapy currently is on Rocephin and azithromycin and this will continue at this time. Confirmation of the [place] viral infection is in progress. And there is a potential that this could be causing a false positive test. 04/06/2018 patient has improved. She's now on the medical floor. Still feels quite weak and has been seen by cardiology. Mucinex is added to help her with her cough and sputum production. Not having any further fevers. Appears to be having a good clinical response to the antibiotic therapy. [place] viral testing in progress. Remains concerned about false positive test. 04/07/2018 reveals the patient be feeling slightly better today. She is less short of breath. Mucinex as help her mobilize her secretions. She is having no further fever. We have confirmed that the patient does have [place] viral infection with the panel. The VCA IgM is positive. Expect over the next several weeks that she will further improved. As for antibiotic therapy currently on Rocephin and oral azithromycin. Sputum culture is pending which may further help direct antibiotic therapy for discharge. Blood cultures are negative. A follow-up echocardiogram is planned for tomorrow to evaluate recovery of her ejection fraction. 04/08/2018. Patient has had further improvement. Less short of breath. Has been up and walking with some cough. She overall has had a trend to improvement. She is denying further fever or chills. Energy level is improving. She has found that with some of her new medication she feels a bit weak and dizzy when she first stands up. Likely the beta eduin she is advised to stand slowly and take a moment before she starts to walk for her body to adjust. She likely discharge home tomorrow. She has had a follow-up echocardiogram with the ejection fraction of 45-50% which is much improved. She will follow with cardiology and pulmonary critical care after discharge. She likely will have beta blockers for a few weeks after discharge for the treatment of her significant depressed cardiac function from her sepsis and bilateral pneumonia. Current Visit: Yes Status: Acute Code(s): J18.1 - LOBAR PNEUMONIA, UNSPECIFIED ORGANISM SNOMED Code(s): 518848469
[2018-04-08] MEDS: ACETAMINOPHEN TAB 500 MG TAB PO PRN (22:40)
[2018-04-09 06:39] LABS: Basophils % (A) 1 %; Eosinophils # (A) 0.3 k/uL (0-0.7); Eosinophils % (A) 7 %; HCT 35.9 % (34.0-46.0); HGB 12.3 gm/dL (11.4-16.0); Lymphocytes # (A) 1.9 k/uL (1.0-4.8); Lymphocytes % (A) 38 %; MCH 28.3 pg (25.0-35.0); MCHC 34.3 g/dL (31.0-37.0); MCV 82.6 fL (80.0-100.0); Mean Platelet Volume 6.9; Monocytes # (A) 0.4 k/uL (0-1.0); Monocytes % (A) 8 %; Neutrophils # (A) 2.2 k/uL (1.3-7.7); Neutrophils % (A) 43 %; Platelet Count 307 k/uL (150-450); RBC 4.34 m/uL (3.80-5.40); RDW 13.4 % (11.5-15.5); WBC 5.1 k/uL (4.0-11.0)
[2018-04-09] MEDS: DEXTROSE 5% IN WATER 1,000 ML with SODIUM BICARB (1 MEQ/ML) 50 ML IV SCH (06:39)
[2018-04-09 06:48] LABS: Anion Gap 11 mmol/L; Blood Urea Nitrogen 12 mg/dL (7-17); Calcium 9.4 mg/dL (8.4-10.2); Carbon Dioxide 27 mmol/L (22-30); Chloride 101 mmol/L (98-107); Glucose 88 mg/dL (74-99); Magnesium 1.9 mg/dL (1.6-2.3); Phosphorus 4.7 mg/dL (2.5-4.5); Potassium 4.5 mmol/L (3.5-5.1); Sodium 139 mmol/L (137-145)
--- NOTE | 2018-04-09 07:14 | XR ---
EXAMINATION TYPE: XR chest 1V DATE OF EXAM: 04/09/2018 CLINICAL HISTORY: Difficulty breathing and pneumonia progress study. TECHNIQUE: Single AP portable upright view of the chest is obtained. COMPARISON: Chest x-ray from one day earlier and older studies. FINDINGS: There is persistent bibasilar opacity consistent with small bilateral pleural effusions an d associated bibasilar atelectasis and/or infiltrate. Cardiac silhouette size is stable and upper gardiner its of normal. Upper lungs are clear without pneumothorax. Osseous structures are intact. IMPRESSION: Overall stable findings, persistent small bilateral pleural effusions with associated b ibasilar atelectasis and/or infiltrate. No new infiltrate is seen.
[2018-04-09] MEDS: METOPROLOL TARTRATE 25 MG TAB PO SCH (08:46)
[2018-04-09] MEDS: guaiFENesin-DM 600/30MG 1 EACH TAB.ER.12H PO SCH (08:48)
[2018-04-09] MEDS: AZITHROMYCIN 500 MG TAB PO SCH (08:48)
[2018-04-09] MEDS: cefTRIAXone IN SWFI 1,000 MG/10 ML SYRINGE IVP SCH (08:48)
[2018-04-09] MEDS: IPRATROPIUM-ALBUTEROL 3 ML NEB INHALATION SCH ×2 (09:13→13:22)
[2018-04-09] MEDS ORDERED: METOPROLOL SUCCINATE (ER) 50 MG TAB.ER.24H PO SCH (12:15)
[2018-04-09 12:28] VITALS: BP 94/61; RESP 18; TEMP 98
[2018-04-09 13:36] VITALS: PULSE 76
--- NOTE | 2018-04-09 14:27 | P.PN ---
Subjective Progress Note Date: 04/09/18 Principal diagnosis: Extensive left lower lobe pneumonia A 22-year-old female patient was hospitalized for an extensive left lower lobe pneumonia. During the same hospitalization the patient was diagnosed having a cardiomyopathy with global hypokinesis. The patient is still having cough congestion chest tightness and she is bringing up thick yellowish and greenish sputum. Afebrile for now. No significant chest pain. Breath sounds are quite diminished in the left lung base. A repeat chest x-ray was done today shows persistent lower lobe bilateral pulmonary infiltrates and the patient remains on a combination of Rocephin and Zithromax. During the same admission, the patient was found to have positive heterophile antibodies for infectious mononucleosis. She has some limited sore throat and splenomegaly. Note that she was initially in the intensive care unit for hypotension and currently she is hemodynamically stable. The patient has smoked cigarettes in the past and she used marijuana in the past. No pleurisy. No hemoptysis. She is not . The patient is seen again today 04/07/2018 in follow-up in the pediatric unit. She is awake and alert in no acute distress. She's been up ambulating to the bathroom. She is still quite weak and fatigued.S short of breath as compared to yesterday. She is maintaining good O2 saturations in the upper 90s on room air. She continues with a loose nonproductive cough. Preliminary sputum cultures revealing moderate gram-positive cocci and moderate gram-negative bacilli.she remains on Rocephin and Zithromax for now. The patient is seen today 04/08/2018 in follow-up in the pediatric unit. She is currently awake and alert in no acute distress. She is up quite a bit stronger today as compared to yesterday. Breathing easier. Been taking good O2 saturations in the 90s on room air. She's been afebrile. Hemodynamically stable. Still with a loose nonproductive cough. Chest x-ray shows continued improvement in the residual mild bibasilar airspace disease. Sputum culture is still pending. Preliminary shows moderate gram-positive cocci, moderate gram- negative bacilli. Serum are RSV was negative. No leukocytosis. Echocardiogram is improved as well with only mildly impaired left ventricular systolic function with ejection fraction 45-50%. No noted hypokinesia. On 04/09/2018 patient seen in follow-up in the pediatric unit. She has a productive cough, producing moderate amounts of clear whitish sputum, denies any fever or chills, denies worsening dyspnea. Patient is afebrile, she is currently on room air, with O2 sat at 94%. Lung sounds show better aeration bilaterally, with diminished lung sounds over left lower base. His chest x-ray was reviewed and shows persistent small bilateral pleural effusions, movement noted in the appearance of bilateral infiltrates. Sputum culture showed normal respiratory marlon, she has been treated with the combination of Zithromax and Rocephin, and there has been clinical and radiographic improvement noted. Today 's lab work shows WBC of 5.1, hemoglobin of 12.3, electrolytes and renal profile are all within normal limits, phosphorus was 4.7, RSV was negative. From pulmonary standpoint patient is stable for discharge home today Objective - Vital Signs Vital signs: Vital Signs Temp 98 F 04/09/18 12:25 Pulse 76 04/09/18 13:35 Resp 18 04/09/18 12:25 BP 94/61 04/09/18 12:25 Pulse Ox 94 L 04/09/18 12:25 Intake & Output 04/08/18 04/09/18 04/09/18 18:59 06:59 18:59 Intake Total 1160 Balance 1160 Intake: Oral 1160 Other: # Voids 1 - Exam Gen. appearance, comfortable no acute distress. No signs of any acute respiratory failure Head exam was generally normal. There was no scleral icterus or corneal arcus. Mucous membranes were moist. Neck was supple and without jugular venous distension, thyromegaly, or carotid bruits. Carotids were easily palpable bilaterally. There was no adenopathy. Lungs sounds are diminished bilaterally especially in the lung bases along with some dullness to percussion left lung base Cardiac exam revealed the PMI to be normally situated and sized. The rhythm was regular and no extrasystoles were noted during several minutes of auscultation. The first and second heart sounds were normal and physiologic splitting of the second heart sound was noted. There were no murmurs, rubs, clicks, or gallops. Abdominal exam revealed normal bowel sounds. The abdomen was soft, non-tender, and without masses, organomegaly, or appreciable enlargement of the abdominal aorta. Examination of the extremities revealed easily palpable radial, femoral and pedal pulses. There was no cyanosis, clubbing or edema. Examination of the skin revealed no evidence of significant rashes, suspicious appearing nevi or other concerning lesions. Neurologically the patient is awake and alert and there is no focal neurological deficit Psychiatrically the patient has normal mood and affect - Labs CBC & Chem 7: 04/09/18 06:21 04/09/18 06:21 Labs: Abnormal Lab Results - Last 24 Hours (Table) 04/09/18 Range/Units 06:21 Phosphorus 4.7 H (2.5-4.5) mg/dL Microbiology - Last 24 Hours (Table) 04/06/18 16:22 Gram Stain - Final Sputum Sputum Culture - Final 04/03/18 12:20 Blood Culture - Preliminary Blood No Growth after 120 hours Assessment and Plan Plan: Assessment: 1 left lower lobe pneumonia, likely bacterial as the patient has extensive consolidation of left lung base. Preliminary sputum cultures revealed moderate gram-positive cocci, moderate gram-negative bacilli. 2 acute hypotension likely secondary to sepsis, recovered 3 cardiomyopathy with global hypokinesis with ejection fraction between 20 and 25%. Rule out infectious/septic cardiomyopathy. Rule out viral follow-up echocardiogram on 04/08/2018 reveals no evidence of hypokinesia and mildly impaired left ventricular systolic function with ejection fraction 45-50%. 4 positive heterophile antibody raising the suspicion for infectious mononucleosis 5 dyspnea secondary to above 6 anemia 7 non-anion gap metabolic acidosis 8 acute hypoxic history failure secondary left lower lobe pneumonia, currently on room air. Plan: Patient continues to improve, sputum cultures showed no growth to date, blood cultures were negative, patient responded to empiric antibiotics in the form of Zithromax and Rocephin, and today's chest x-ray shows improvement in the appearance of bilateral infiltrates. Clinically patient stable, she is afebrile , vital signs are stable. From pulmonary standpoint patient is able to be discharged today with follow-up in the office with Dr. Farr in one week. I performed a history & physical examination of the patient and discussed their management with my nurse practitioner, Maria Guadalupe Navarrete. I reviewed the nurse practitioner's note and agree with the documented findings and plan of care. Lung sounds are positive for diminished lung sounds over left lower lobe. The findings and the impression was discussed with the patient. I attest to the documentation by the nurse practitioner. ' Time with Patient: Less than 30
--- NOTE | 2018-04-09 23:23 | DS ---
DISCHARGE SUMMARY FINAL DIAGNOSES: 1. Left lower pneumonia with severe sepsis, septic shock, hypotension, present on admission. 2. 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 3. Acute infectious mononucleosis. 4. Hypokalemia. 5. Hypomagnesemia. 6. Splenomegaly. 7. Metabolic acidosis. 8. Slightly elevated beta HCG indicating probably nonviable per SECURITY INVESTIGATOR. DISCHARGE DISPOSITION: The patient will be discharged in stable condition with guarded prognosis. HISTORY OF PRESENT ILLNESS: This 22-year-old with a past medical history of multiple medical problems was admitted with pneumonia, sepsis and multiple complex medical issues. The patient was seen in conjunction with Cardiology, pulmonology, Infectious Disease and also SECURITY INVESTIGATOR. Care was coordinated. Medications adjusted. The patient improved significantly. A 2D echo showed ejection fraction improved to 30% to 34%. On exam, vital signs are stable. CARDIOVASCULAR SYSTEM: S1, S2. RESPIRATORY: A few rhonchi and crackles. The patient will be discharged in a stable condition with guarded prognosis. Activity is limited. Diet is cardiac. Follow up with Dr. Willson in 2 to 3 days. Follow up with Dr. Farr and Dr. Gil as advised. MEDICATIONS: 1. Albuterol 2 puffs q.i.d. and p.r.n. 2. Zithromax 500 mg p.o. daily for 5 days. 3. Omnicef 300 mg p.o. b.i.d. for 7 days. 4. Prozac 10 mg p.o. daily. 5. Vistaril 25 mg q.8h p.r.n. 6. Toprol-XL 50 mg p.o. daily. Follow up with Dr. Duffy as recommended. Once again, the patient will be discharged in stable condition with guarded prognosis. MMODL / IJN: [id number] /
== END 2018-04-09 14:39 | disposition home or self-care (01) | DRG 871 ==
LOC: EC 11:14 → 4MS4W 16:29 → 6ICU 04-04 00:50 → OBSVTOIN 04-04 00:51 → 6PED 04-05 14:50
PROVIDERS: ADMIT Internal Medicine; ATTEND Internal Medicine
DX: A41.9 Sepsis, unspecified organism (principal); R65.21 Severe sepsis with septic shock; I50.21 Acute systolic (congestive) heart failure; J15.9 Unspecified bacterial pneumonia; J96.01 Acute respiratory failure with hypoxia; E87.2 Acidosis; I42.8 Other cardiomyopathies; B27.00 Gammaherpesviral mononucleosis without complication; D64.9 Anemia, unspecified; E83.42 Hypomagnesemia; E86.1 Hypovolemia; E87.6 Hypokalemia; F17.210 Nicotine dependence, cigarettes, uncomplicated; Z79.899 Other long term (current) drug therapy; Z88.5 Allergy status to narcotic agent; Z79.891 Long term (current) use of opiate analgesic
CPT/HCPCS: 36415; 71045; 71046; 71275; 74176; 76705; 76801; 76817; 80048; 80053; 80306; 81003; 81025; 82150; 82533; 82728; 83605; 83690; 83735; 84100; 84132; 84478; 84484; 84702; 85025; 85379; 85384; 86308; 86663; 86664; 86665; 87040; 87070; 87077; 87086; 87186; 87205; 87502; 87634; 93005; 93306; 94640; 94760

== ENCOUNTER 2018-04-13 01:56 | Emergency (ER) | payer OTHER ==
[2018-04-13] MEDS ORDERED: KETOROLAC 30 MG/ML 1 ML VIAL IVP STA (02:20)
[2018-04-13 02:30] LABS: Basophils % (A) 1 %; Eosinophils # (A) 0.3 k/uL (0-0.7); Eosinophils % (A) 4 %; HCT 36.7 % (34.0-46.0); HGB 12.1 gm/dL (11.4-16.0); Lymphocytes # (A) 2.2 k/uL (1.0-4.8); Lymphocytes % (A) 25 %; MCH 27.5 pg (25.0-35.0); MCHC 33.1 g/dL (31.0-37.0); MCV 83.2 fL (80.0-100.0); Mean Platelet Volume 7.2; Monocytes # (A) 0.4 k/uL (0-1.0); Monocytes % (A) 5 %; Neutrophils # (A) 5.7 k/uL (1.3-7.7); Neutrophils % (A) 65 %; Platelet Count 347 k/uL (150-450); RBC 4.41 m/uL (3.80-5.40); RDW 13.8 % (11.5-15.5); WBC 8.7 k/uL (4.0-11.0)
[2018-04-13 02:39] LABS: ALT 33 U/L (9-52); AST 17 U/L (14-36); Alkaline Phosphatase 78 U/L (38-126); Anion Gap 15 mmol/L; Blood Urea Nitrogen 17 mg/dL (7-17); Calcium 9.4 mg/dL (8.4-10.2); Carbon Dioxide 23 mmol/L (22-30); Chloride 105 mmol/L (98-107); Glucose 94 mg/dL (74-99); Potassium 4.3 mmol/L (3.5-5.1); Sodium 143 mmol/L (137-145); Total Bilirubin 0.5 mg/dL (0.2-1.3); Total Protein 6.9 g/dL (6.3-8.2)
[2018-04-13 02:44] LABS: Creatine Kinase 31 U/L (30-135)
[2018-04-13 02:45] LABS: INR 1.1 (<1.2); Partial Thromboplastin Time 22.6 sec (22.0-30.0); Prothrombin Time 10.4 sec (9.0-12.0)
--- NOTE | 2018-04-13 02:48 | XR ---
EXAMINATION TYPE: XR chest 2V DATE OF EXAM: 04/13/2018 COMPARISON: 04/09/2018 HISTORY: Left side pain TECHNIQUE: Frontal and lateral views of the chest are obtained. FINDINGS: Heart and mediastinum are normal. Lungs are clear. There is slight blunting of the costoph renic angles. Bony thorax is intact. IMPRESSION: Small pleural effusions are decreased compared to last exam. Normal heart.
[2018-04-13 02:52] LABS: D-Dimer 1.68 mg/L FEU (<0.60)
[2018-04-13 02:55] LABS: HCG,Quantitative Serum 292.1 mIU/mL
[2018-04-13 02:58] LABS: Creatine Kinase MB <0.2 ng/mL (0.0-2.4); Troponin I <0.012 ng/mL (0.000-0.034)
[2018-04-13] MEDS ORDERED: RX INFO: IV CONTRAST WAS GIVEN 1 EACH MISC MISCELLANE PRN (03:09)
--- NOTE | 2018-04-13 03:36 | CT ---
EXAMINATION TYPE: CT chest angio for PE DATE OF EXAM: 04/13/2018 COMPARISON: NONE HISTORY: R/O PE, Left side pain CT DLP: 159.60 mGycm Automated exposure control for dose reduction was used. CONTRAST: CT Chest for pulmonary embolism performed with with IV Contrast, patient injected with 80 mL of Isovu e 370. FINDINGS: There are 3-D post processed images. There is mild infiltrate at the left posterior lung base. There is small bilateral pleural effusions. Heart size is normal. There is no pericardial effusion. I see no filling defects in the pulmonary arteries. There are no hilar masses. There is no mediastina l adenopathy. Thoracic aorta appears normal. Bony thorax is intact. Spleen is not enlarged. IMPRESSION: No evidence of pulmonary embolism. Small bilateral pleural effusions and left basilar pulmonary infiltrate.
--- NOTE | 2018-04-13 03:47 | ED ---
Back Pain HPI - General Chief Complaint: Back Pain/Injury Stated Complaint: back pain Time Seen by Provider: 04/13/18 02:09 Source: patient Limitations: no limitations - History of Present Illness Initial Comments: 22-year-old female patient presents to the emergency department today with complaints of left-sided chest pain that radiates into her back. Patient states that the pain is severe. Describes it as a sharp stabbing pain. States this started around 11:30 this morning. States that the pain has steadily worsened throughout the day. States that she is recently admitted for pneumonia , mono, and congestive heart failure. Patient states that the pain increases significantly when she takes a deep breath. Patient denies any fevers or chills. States that she has been very hot. She denies any cough or hemoptysis. States that she has been nauseated but has not vomited. Denies any abdominal pain, constipation, diarrhea, hematuria, dysuria, urinary frequency, or urinary urgency. - Related Data Previous Rx's Medication Instructions Recorded FLUoxetine HCL [PROzac] 10 mg PO DAILY #14 cap 02/24/18 hydrOXYzine PAMOATE [Vistaril] 25 mg PO Q8HR PRN #15 cap 02/24/18 Cefdinir [Omnicef] 300 mg PO Q12HR #14 capsule 04/08/18 Albuterol Inhaler [Ventolin Hfa 2 puff INHALATION RT-Q6H #1 inhaler 04/09/18 Inhaler] Azithromycin [Zithromax] 500 mg PO DAILY #5 tab 04/09/18 Metoprolol Succinate (ER) [Toprol 50 mg PO DAILY #30 tab.er.24h 04/09/18 XL] Acetaminophen-Codeine 300-30mg 1 tab PO Q6H PRN #12 tablet 04/13/18 [Tylenol #3] Cefdinir [Omnicef] 300 mg PO Q12HR #14 capsule 04/13/18 Ibuprofen [Motrin] 600 mg PO Q8HR PRN #30 tab 04/13/18 Allergies Allergy/AdvReac Type Severity Reaction Status Date / Time morphine Allergy Itching Verified 04/13/18 02:02 Review of Systems ROS Statement: Those systems with pertinent positive or pertinent negative responses have been documented in the HPI. ROS Other: All systems not noted in ROS Statement are negative. Past Medical History Past Medical History: No Reported History Additional Past Medical History / Comment(s): herpes History of Any Multi-Drug Resistant Organisms: None Reported Past Surgical History: Section Past Anesthesia/Blood Transfusion Reactions: No Reported Reaction Additional Past Anesthesia/Blood Transfusion Reaction / Comment(s): NEVER HAS HAD GENERAL ANESTHESIA Past Psychological History: Anxiety, Depression Smoking Status: Current every day smoker - Past Family History Son(s) Family Medical History: No Reported History Mother Family Medical History: No Reported History Father Additional Family Medical History / Comment(s): "PASSES OUT" PER PT General Exam Limitations: no limitations General appearance: alert, in no apparent distress, other (This is a well- developed, well-nourished adult female patient in mild distress related to pain. Vital signs upon presentation are temperature 98.5F, pulse 95, respirations 20, blood pressure 101/62, pulse ox 98% on room air.) Eye exam: Present: normal appearance, PERRL, EOMI. Absent: scleral icterus, conjunctival injection, periorbital swelling ENT exam: Present: normal exam, normal oropharynx, mucous membranes moist Respiratory exam: Present: normal lung sounds bilaterally, other (Chest wall appearance is normal). Absent: respiratory distress, wheezes, rales, rhonchi, stridor, chest wall tenderness (Chest wall appears normal.) Cardiovascular Exam: Present: regular rate, normal rhythm, normal heart sounds. Absent: systolic murmur, diastolic murmur, rubs, gallop, clicks GI/Abdominal exam: Present: soft, normal bowel sounds. Absent: distended, tenderness, guarding, rebound, rigid Neurological exam: Present: alert, oriented X3, CN II-XII intact Psychiatric exam: Present: normal affect, normal mood Skin exam: Present: warm, dry, intact, normal color. Absent: rash Course Vital Signs 04/13/18 04/13/18 01:58 02:45 Temperature 98.5 F Pulse Rate 95 78 Respiratory 20 16 Rate Blood Pressure 101/62 109/58 O2 Sat by Pulse 98 98 Oximetry Medical Decision Making - Medical Decision Making 22-year-old female patient presented to the emergency department today for evaluation of left-sided chest and back pain that worsened with breathing. Physical examination was unremarkable. Lungs are clear to auscultation with good air movement. Patient had no chest wall tenderness. Patient was recently discharged for pneumonia, mono, and congestive heart failure. During her visit her hCG was elevated, last level was 60. Labs performed today revealed a d- dimer elevated at 1.68, an hCG of 297. We did perform a CTA of the chest to include the spleen which showed left basilar infiltrate and pleural effusion. No evidence of PE. No evidence of splenic rupture. EKG showed normal sinus rhythm with a ventricular rate of 94, no ectopy was noted. Vital signs stable. I did discuss findings and results with the patient. I do believe her pain is related to the pleural effusion, pneumonia, and some element of pleurisy related to this. I did offer admission versus discharge home, patient is taking azithromycin at home and was supposed to be taking Cefdinir but they did not fill her prescription prior to discharge. Patient did discuss options with her significant other and she has decided to be discharged home. I will give her a dose of Cefdinir here in the department. She'll be discharged home with pain medication and a prescription for the antibiotic. Did also discuss the possibility of ectopic pregancy vs. other etiologies related to her elevated hCG and instructed her to follow up with the OBGYN as soon as possible. She does have a follow up appointment with her primary care physician tomorrow, open developer operator on 04/17/18, and millwright instructor on 04/23/18. She is urged to keep these appointments. Return parameters discussed in detail. She verbalizes understanding and agrees with this plan. - Lab Data Result diagrams: 04/13/18 02:21 04/13/18 02:21 Lab Results 04/13/18 04/13/18 04/13/18 Range/Units 02:21 02:21 02:21 WBC 8.7 (4.0-11.0) k/uL RBC 4.41 (3.80-5.40) m/uL Hgb 12.1 (11.4-16.0) gm/dL Hct 36.7 (34.0-46.0) % MCV 83.2 (80.0-100.0) fL MCH 27.5 (25.0-35.0) pg MCHC 33.1 (31.0-37.0) g/dL RDW 13.8 (11.5-15.5) % Plt Count 347 (150-450) k/uL Neutrophils % 65 % Lymphocytes % 25 % Monocytes % 5 % Eosinophils % 4 % Basophils % 1 % Neutrophils # 5.7 (1.3-7.7) k/uL Lymphocytes # 2.2 (1.0-4.8) k/uL Monocytes # 0.4 (0-1.0) k/uL Eosinophils # 0.3 (0-0.7) k/uL Basophils # 0.0 (0-0.2) k/uL PT (9.0-12.0) sec INR (<1.2) APTT (22.0-30.0) sec D-Dimer (<0.60) mg/L FEU Sodium 143 (137-145) mmol/L Potassium 4.3 (3.5-5.1) mmol/L Chloride 105 (98-107) mmol/L Carbon Dioxide 23 (22-30) mmol/L Anion Gap 15 mmol/L BUN 17 (7-17) mg/dL Creatinine 0.60 (0.52-1.04) mg/dL Est GFR (CKD-EPI)AfAm >90 (>60 ml/min/1.73 sqM) Est GFR (CKD-EPI)NonAf >90 (>60 ml/min/1.73 sqM) Glucose 94 (74-99) mg/dL Calcium 9.4 (8.4-10.2) mg/dL Total Bilirubin 0.5 (0.2-1.3) mg/dL AST 17 (14-36) U/L ALT 33 (9-52) U/L Alkaline Phosphatase 78 (38-126) U/L Total Creatine Kinase 31 (30-135) U/L CK-MB (CK-2) <0.2 (0.0-2.4) ng/mL CK-MB (CK-2) Rel Index Troponin I <0.012 (0.000-0.034) ng/mL Total Protein 6.9 (6.3-8.2) g/dL Albumin 4.0 (3.5-5.0) g/dL HCG, Quant 292.1 mIU/mL Urine Color Urine Appearance (Clear) Urine pH (5.0-8.0) Ur Specific [place] (1.001-1.035) Urine Protein (Negative) Urine Glucose (UA) (Negative) Urine Ketones (Negative) Urine Blood (Negative) Urine Nitrite (Negative) Urine Bilirubin (Negative) Urine Urobilinogen (<2.0) mg/dL Ur Leukocyte Esterase (Negative) 04/13/18 04/13/18 Range/Units 02:21 03:54 WBC (4.0-11.0) k/uL RBC (3.80-5.40) m/uL Hgb (11.4-16.0) gm/dL Hct (34.0-46.0) % MCV (80.0-100.0) fL MCH (25.0-35.0) pg MCHC (31.0-37.0) g/dL RDW (11.5-15.5) % Plt Count (150-450) k/uL Neutrophils % % Lymphocytes % % Monocytes % % Eosinophils % % Basophils % % Neutrophils # (1.3-7.7) k/uL Lymphocytes # (1.0-4.8) k/uL Monocytes # (0-1.0) k/uL Eosinophils # (0-0.7) k/uL Basophils # (0-0.2) k/uL PT 10.4 (9.0-12.0) sec INR 1.1 (<1.2) APTT 22.6 (22.0-30.0) sec D-Dimer 1.68 H (<0.60) mg/L FEU Sodium (137-145) mmol/L Potassium (3.5-5.1) mmol/L Chloride (98-107) mmol/L Carbon Dioxide (22-30) mmol/L Anion Gap mmol/L BUN (7-17) mg/dL Creatinine (0.52-1.04) mg/dL Est GFR (CKD-EPI)AfAm (>60 ml/min/1.73 sqM) Est GFR (CKD-EPI)NonAf (>60 ml/min/1.73 sqM) Glucose (74-99) mg/dL Calcium (8.4-10.2) mg/dL Total Bilirubin (0.2-1.3) mg/dL AST (14-36) U/L ALT (9-52) U/L Alkaline Phosphatase (38-126) U/L Total Creatine Kinase (30-135) U/L CK-MB (CK-2) (0.0-2.4) ng/mL CK-MB (CK-2) Rel Index Troponin I (0.000-0.034) ng/mL Total Protein (6.3-8.2) g/dL Albumin (3.5-5.0) g/dL HCG, Quant mIU/mL Urine Color Yellow Urine Appearance Clear (Clear) Urine pH 6.0 (5.0-8.0) Ur Specific [place] >1.050 H (1.001-1.035) Urine Protein Negative (Negative) Urine Glucose (UA) Negative (Negative) Urine Ketones Negative (Negative) Urine Blood Negative (Negative) Urine Nitrite Negative (Negative) Urine Bilirubin Negative (Negative) Urine Urobilinogen <2.0 (<2.0) mg/dL Ur Leukocyte Esterase Negative (Negative) - Radiology Data Radiology results: report reviewed, image reviewed Two-view x-ray of the chest are obtained. Heart and mediastinum are normal. Lungs are clear. There is slight blunting of the costophrenic angles. Bony thorax is intact. Impression by Dr. Walton shows small pleural effusions or decreased compared to last exam. Normal heart. CT angio of the chest for PE was obtained. Report was reviewed in its entirety. Impression by Dr. Walton shows no evidence of pulmonary embolism. Small bilateral pleural effusions and left basilar pulmonary infiltrate. Spleen is not enlarged. Disposition Clinical Impression: Pneumonia, Pleural effusion, Pleurisy Disposition: HOME SELF-CARE Condition: Good Instructions: Pleurisy (ED), Pleural Effusion (ED), Pneumonia (ED) Additional Instructions: Take medications as directed. Follow-up with your primary care physician for recheck as soon as possible. Your hCG level increased to 297, follow-up with OB /MINE ENVIRONMENTAL ENGINEER as soon as possible. Return here immediately for any new, worsening, or concerning symptoms. Prescriptions: Acetaminophen-Codeine 300-30mg [Tylenol #3] 1 tab PO Q6H PRN #12 tablet PRN Reason: Pain Cefdinir [Omnicef] 300 mg PO Q12HR #14 capsule Ibuprofen [Motrin] 600 mg PO Q8HR PRN #30 tab PRN Reason: Pain Is patient prescribed a controlled substance at d/c from ED?: Yes When asked, does pt state using other controlled substances?: No Referrals: Jayden Willson MD [Primary Care Provider] - 1-2 days Toño Garcia DO [Doctor of Osteopathic Medicine] - 1-2 days Time of Disposition: 04:29
[2018-04-13 04:03] LABS: Appearance,Urine Clear (Clear); Bilirubin,Urine Negative (Negative); Blood,Urine Negative (Negative); Color,Urine Yellow; Glucose,Urine (UA) Negative (Negative); Ketones,Urine Negative (Negative); Leukocyte Esterase,Urine Negative (Negative); Nitrite,Urine Negative (Negative); Protein,Urine Negative (Negative); Urobilinogen,Urine <2.0 mg/dL (<2.0)
[2018-04-13 04:09] LABS: Specific Gravity,Urine >1.050 (1.001-1.035)
[2018-04-13] MEDS ORDERED: IBUPROFEN 600 MG STARTER PACK 4 TAB BTL PO STA (04:25)
[2018-04-13] MEDS ORDERED: ACET/COD 300 MG/30 MG STARTER PACK 6 TAB BTL PO STA (04:25)
[2018-04-13] MEDS ORDERED: CEFDINIR 300 MG CAP PO STA (04:25)
[2018-04-13 04:43] VITALS: BP 105/55; PULSE 81; RESP 18; TEMP 98.6
== END 2018-04-13 04:43 | disposition home or self-care (01) ==
LOC: EC 01:56
DX: J18.9 Pneumonia, unspecified organism (principal); J90 Pleural effusion, not elsewhere classified; I50.9 Heart failure, unspecified; F17.200 Nicotine dependence, unspecified, uncomplicated; Z88.5 Allergy status to narcotic agent
CPT/HCPCS: 36415; 93005; 85379; 80053; 82550; 82553; 84484; 85025; 85610; 85730; 81003; 84702; 71046; 71275; 99284; 96374; J1885; Q9967

== ENCOUNTER → 2018-04-15 | Outpatient (CLI) | payer OTHER | END | disposition home or self-care (01) | LOC: LABWHC1 13:33 | PROVIDERS: ATTEND Obstetrics & Gynecology | DX: Z34.80 Encounter for supervision of other normal pregnancy, unspecified trimester (principal); Z3A.00 Weeks of gestation of pregnancy not specified | CPT/HCPCS: 36415; 84702 ==

== ENCOUNTER → 2018-04-16 | Outpatient (CLI) | payer OTHER | LOC: LABWHC1 13:20 | PROVIDERS: ATTEND Obstetrics & Gynecology | DX: Z34.80 Encounter for supervision of other normal pregnancy, unspecified trimester (principal) | CPT/HCPCS: 36415; 84702 ==

== ENCOUNTER → 2018-04-17 | Outpatient (CLI) | payer OTHER | LOC: LABWHC1 15:16 | PROVIDERS: ATTEND Obstetrics & Gynecology | DX: Z34.80 Encounter for supervision of other normal pregnancy, unspecified trimester (principal) | CPT/HCPCS: 36415; 84702 ==

== ENCOUNTER → 2018-04-28 | Outpatient (CLI) | payer OTHER ==
--- NOTE | 2018-04-29 10:28 | US ---
EXAMINATION TYPE: Transabdominal DATE OF EXAM: 03/03/18 COMPARISON: NONE CLINICAL HISTORY: Z36 confirm dates. EXAM PERFORMED: Transvaginal (TV) and Transabdominal (TA) EXAM MEASUREMENTS: GESTATIONAL AGE / DATING Physician Established: none Dates by LMP: unknown Dates by First Scan: no previous Dates by Current Scan for: (6 weeks/2 days) EDC: 12/20/2017 MATERNAL ANATOMY Uterus: retroverted Right Ovary: 3.5 x 1.9 x 3.6 cm, 2.3 cm isoechoic lesion, possible corpus luteum Left Ovary: 2.4 x 1.3 x 2.4 cm Post CDS / Adnexa: congested Presence of free fluid: no Presence of corpus luteal cyst: possible isoechoic lesion left ovary Presence of subchorionic bleed: large (4.3 x 0.7 cm) bleed inferior to gestation sac GESTATION / SURVEY CRL: ( 6 weeks/2 days) Yolk Sac (normal less than 6mm): 3.4 mm Heart Rate: 131 bpm Rhythm: Normal IUP: Viable IUP Date of LMP: unknown Beta HcG (if available): not available Urinary bladder is sonolucent. Posterior wall is normal. IMPRESSION: 1. Single intrauterine gestation estimated at 6 weeks 2 days gestation based on the crown-rump length . Cardiac activity measures 131 bpm. Calculated EDC is 12/20/2018. 2. Subchorionic hemorrhage measuring 4.3 x 0.7 cm.
== END | disposition home or self-care (01) ==
LOC: RADUSWWP 15:41
PROVIDERS: ATTEND Obstetrics & Gynecology
DX: O46.91 Antepartum hemorrhage, unspecified, first trimester (principal); Z3A.01 Less than 8 weeks gestation of pregnancy
CPT/HCPCS: 76801; 76817

== ENCOUNTER 2018-06-16 14:14 | Emergency (ER) | payer MEDICAID, OTHER ==
[2018-06-16 14:30] VITALS: BP 119/72; PULSE 76; RESP 18; TEMP 97.8
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
== END 2018-06-16 16:05 | disposition home or self-care (01) ==
LOC: EC 14:14
DX: F32.9 Major depressive disorder, single episode, unspecified (principal); R45.851 Suicidal ideations; S61.512A Laceration without foreign body of left wrist, initial encounter; F17.200 Nicotine dependence, unspecified, uncomplicated; Z79.3 Long term (current) use of hormonal contraceptives; Z88.5 Allergy status to narcotic agent; W45.8XXA Other foreign body or object entering through skin, initial encounter
CPT/HCPCS: 82075; 99284

== ENCOUNTER 2018-08-28 13:27 | Outpatient (CLI) | payer OTHER ==
[2018-08-28 15:18] VITALS: BP 117/67; PULSE 79; RESP 18; TEMP 97.3
--- NOTE | 2018-08-28 15:23 | US ---
EXAMINATION TYPE: US OB limited DATE OF EXAM: 08/28/2018 COMPARISON: US 2018 CLINICAL HISTORY: BLANE - 23/4/7 weeks - rule out SROM. Leaking fluid, pelvic cramping, for BLANE only. EXAM PERFORMED: Transabdominal (TA) GESTATIONAL AGE / DATING Physician Established: (23 weeks/4 days) EDC: 12/21/2018 No growth performed on today?s study per ordering physician SURVEY BLANE: 13.8 cm Normal Ultrasound evidence of premature rupture of membranes? No HEART RATE: 149 bpm RHYTHM: Normal Results given to patient's nurse (Carolyn Sevilla) at end of exam. Impressions: 1. BLANE measures 13.8 cm. 2. heart rate is measured at 149 bpm. IMPRESSION:
--- NOTE | 2018-09-12 09:42 | P.MSEPDOC ---
Presenting Problems - Arrival Data Date of Arrival on Unit: 08/28/18 Time of Arrival on Unit: 13:30 Mode of Transport: Portable Vital Signs - Temperature Temperature: 97.3 F Temperature Source: Temporal Artery Scan - Pulse Right Pulse Oximetery Pulse Rate: 79 Pulse Assessment Method: Pulse Oximetry - Respirations Respiratory Rate: 18 Oxygen Delivery Method: Room Air O2 Sat by Pulse Oximetry: 100 - Blood Pressure Right Arm Blood Pressure: 117/67 Blood Pressure Mean: 83 Blood Pressure Source: Automatic Cuff Medical Screen Scoring (Post) - Cervical Exam Dilation: Exam Deferred Effacement: Exam Deferred Membranes: Intact - Uterine Contractions Frequency: N/A Duration: N/A Intensity: N/A - Maternal Vital Signs Maternal Temperature: N/A Maternal Blood Pressure: N/A Signs of Preeclampsia: N/A Maternal Respirations: N/A - Pain Assessment Pain Scale Used: Numeric (1 - 10) Pain Intensity: 0 - Maternal Trauma Maternal Trauma: N/A - Assessment Heart Rate: 135 Heart Rate - NICHD Category: Category I (Normal) = 0 Position: N/A Station: N/A - Total Score Total Score (Post): 0 - Post Treatment Level of Risk Post Treatment Level of Risk: Low (0-5) Physician Notification (Post) - Physician Notified Physician Notified Date: 08/28/18 Physician Notified Time: 14:49 Physician/Practitioner Notified:: Dr Garcia Spoke With: Telephone New Order Received: Yes - Notification Comment Comment: Pt here for rule out SROM, high risk, sees doctors in [place] for high risk (amniotic bands, 2 vessle cord, velamentous insertion of cord), Amnisure negative, BLANE 13.8 via ultrasound. Disposition - Disposition OB Disposition: Discharge to home Discharge Date: 08/28/18 Discharge Time: 15:03 I agree with the RN Medical Screening Exam: Yes Risk & Benefit of care provided described in d/c instruction: Yes Diagnosis: RELATED CONDITIONS, UNSPECIFIED, SECOND TRIMESTER
== END 2018-08-28 15:03 | disposition home or self-care (01) ==
LOC: FBPOP 13:27
PROVIDERS: ATTEND Obstetrics & Gynecology
DX: O26.92 Pregnancy related conditions, unspecified, second trimester (principal); Z3A.23 23 weeks gestation of pregnancy
CPT/HCPCS: 76815; 84112; 99213

== ENCOUNTER 2019-07-16 13:19 | Emergency (ER) | payer OTHER ==
[2019-07-16 14:22] LABS: Appearance,Urine Cloudy (Clear); Bacteria,Urine Moderate /hpf; Bilirubin,Urine Negative (Negative); Blood,Urine Large (Negative); Color,Urine Yellow; Glucose,Urine (UA) Negative (Negative); Ketones,Urine Negative (Negative); Leukocyte Esterase,Urine Large (Negative); Nitrite,Urine Negative (Negative); Protein,Urine 2+ (Negative); RBC,Urine >182 /hpf (0-5); Specific Gravity,Urine 1.013 (1.001-1.035); Squamous Epithelial Cell,Urine 1 /hpf (0-4); Urobilinogen,Urine <2.0 mg/dL (<2.0); WBC,Urine >182 /hpf (0-5)
[2019-07-16] MEDS ORDERED: cefTRIAXone 1,000 MG VIAL (IM USE) IM STA (14:25)
[2019-07-16] MEDS ORDERED: ACETAMINOPHEN TAB 325 MG TAB PO STA (14:27)
--- NOTE | 2019-07-16 14:33 | ED ---
General Adult HPI - General Chief complaint: Urogenital Stated complaint: back pain Time Seen by Provider: 07/16/19 13:27 Source: patient, RN notes reviewed, old records reviewed Mode of arrival: ambulatory Limitations: no limitations - History of Present Illness Initial comments: 23-year-old female patient past history significant for appendectomy presents ED chief complaint of suprapubic pain, radiating to her back. Patient also reports that he has had dysuria, frequency. Patient stated that she cannot be due to IUD. Patient denies any other complaints at this time. Systemic: Pt denies fatigue, fever/chills, rash. Pt denies weakness, night sweats, weight loss. Neuro: Pt denies headache, visual disturbances, syncope or pre-syncope. HEENT: Pt denies ocular discharge or irritation, otalgia, rhinorrhea, pharyngitis or notable lymphadenopathy. Cardiopulmonary: Pt denies chest pain, SOB, heart palpitations, dyspnea on exertion. Abdominal/GI: Pt denies abdominal pain, n/v/d. : Pt denies dysuria, burning w/ urination, frequency/urgency. Denies new onset urinary or bowel incontinence. MSK: Pt denies myalgia, loss of strength or function in extremities. Neuro: Pt denies new onset weakness, paresthesias. - Related Data Previous Rx's Medication Instructions Recorded Cephalexin [Keflex] 500 mg PO Q12HR 10 Days cap 07/16/19 Allergies Allergy/AdvReac Type Severity Reaction Status Date / Time morphine Allergy Itching Verified 07/16/19 14:55 Review of Systems ROS Statement: Those systems with pertinent positive or pertinent negative responses have been documented in the HPI. ROS Other: All systems not noted in ROS Statement are negative. Past Medical History Past Medical History: No Reported History Additional Past Medical History / Comment(s): herpes History of Any Multi-Drug Resistant Organisms: None Reported Past Surgical History: Appendectomy, Section Past Anesthesia/Blood Transfusion Reactions: No Reported Reaction Additional Past Anesthesia/Blood Transfusion Reaction / Comment(s): NEVER HAS HAD GENERAL ANESTHESIA Past Psychological History: Anxiety, Depression Smoking Status: Current every day smoker Past Alcohol Use History: None Reported Past Drug Use History: None Reported - Past Family History Son(s) Family Medical History: No Reported History Mother Family Medical History: No Reported History Father Additional Family Medical History / Comment(s): "PASSES OUT" PER PT General Exam - General Exam Comments Initial Comments: Constitutional: NAD, AOX3, Pt has pleasant affect. HEENT: NC/AT, trachea midline, neck supple, no lymphadenopathy. Posterior pharynx non erythematous, without exudates. External ears appear normal, without discharge. Mucous membranes moist. Eyes PERRLA, EOM intact. There is no scleral icterus. No pallor noted. Cardiopulmonary: RRR, no murmurs, rubs or gallops, no JVD noted. Lungs CTAB in anterior and posterior montez. No peripheral edema. Abdominal exam: Abdomen soft and non-distended. Abdomen non-tender to palpation in all 4 quadrants. Bowel sounds active in LLQ. No hepatosplenomegaly. No ecchymosis Neuro: CN II-XII grossly intact. No nuchal rigidity. No raccon eyes, no peoples sign, no hemotympanum. No cervical spinal tenderness. MSK: No posterior calf tenderness bilaterally, homans sign negative bilaterally. Posterior tibialis and radial pulse +2 bilaterally. Sensation intact in upper and lower extremities. Full active ROM in upper and lower extremities, 5/5 stregnth. Limitations: no limitations Course Vital Signs 07/16/19 07/16/19 13:22 14:25 Temperature 97.6 F Pulse Rate 84 77 Respiratory 22 18 Rate Blood Pressure 108/72 126/80 O2 Sat by Pulse 99 99 Oximetry Medical Decision Making - Medical Decision Making 23-year-old male patient presents to chief complaint of suprapubic pain, dysuria, rating to her back. Patient also stable, afebrile. Physical exam demonstrate acute pathology. Left investigations revealed greater than 182 red blood cells, greater than 182 white blood cells. Transvaginal ultrasound displayed no evidence for torsion, IUD appropriately placed, small amount of fluid in posterior cul de sac possible secondary to ruptured cyst. Patient will be treated for urinary tract infection. Will follow up with primary care provider. Return precautions discussed. Case discussed with Dr. Wharton. - Lab Data Lab Results 07/16/19 07/16/19 Range/Units 13:50 13:50 Urine Color Yellow Urine Appearance Cloudy H (Clear) Urine pH 6.0 (5.0-8.0) Ur Specific [place] 1.013 (1.001-1.035) Urine Protein 2+ H (Negative) Urine Glucose (UA) Negative (Negative) Urine Ketones Negative (Negative) Urine Blood Large H (Negative) Urine Nitrite Negative (Negative) Urine Bilirubin Negative (Negative) Urine Urobilinogen <2.0 (<2.0) mg/dL Ur Leukocyte Esterase Large H (Negative) Urine RBC >182 H (0-5) /hpf Urine WBC >182 H (0-5) /hpf Urine WBC Clumps Few H (None) /hpf Ur Squamous Epith Cells 1 (0-4) /hpf Urine Bacteria Moderate H (None) /hpf Urine HCG, Qual Not Detected (Not Detectd) Disposition Clinical Impression: UTI (urinary tract infection) Disposition: HOME SELF-CARE Condition: Stable Instructions (If sedation given, give patient instructions): Urinary Tract Infection in Women (ED) Additional Instructions: Patient to adhere to previously discussed treatment plan and will take medication(s) as directed. Patient to follow up with PCP in 1-2 days. Patient to return to ED if symptoms do not improve. Follow-up with private care provider tomorrow, return to ER if condition worsens. Prescriptions: Cephalexin [Keflex] 500 mg PO Q12HR 10 Days cap Is patient prescribed a controlled substance at d/c from ED?: No Referrals: Jayden Willson MD [Primary Care Provider] - 1-2 days
--- NOTE | 2019-07-16 15:38 | US ---
EXAMINATION TYPE: US transvaginal DATE OF EXAM: 07/16/2019 COMPARISON: US & CT CLINICAL HISTORY: pain . Pt states back pain, IUD in place x 8 months TECHNIQUE: Transvaginal (TV). Transvaginal sonographic images of the pelvis were acquired. Date of LMP: 2 months ago EXAM MEASUREMENTS: Uterus: 6.7 x 4.2 x 4.7 cm Endometrial Stripe: 0.5 cm Right Ovary: 4.1 x 1.9 x 2.5 cm Left Ovary: 3.8 x 1.8 x 2.7 cm 1. Uterus: Retroverted IUD appears in correct location 2. Endometrium: wnl 3. Right Ovary: Physiologic follicular change 4. Left Ovary: Physiologic follicular change Spectral, color and waveform doppler imaging shows good arterial and venous flow within the ovaries ; there is no evidence for ovarian torsion. 5. Bilateral Adnexa: wnl 6. Posterior cul-de-sac: Small amount of free fluid IMPRESSION: 1. Intrauterine device appears centrally and appropriately placed. 2. Small amount of free fluid in the posterior cul-de-sac is likely physiologic in nature. This may b e sequela of a recently ruptured cyst.
[2019-07-16 15:47] VITALS: BP 108/54; PULSE 71; RESP 20; TEMP 98.3
== END 2019-07-16 15:56 | disposition home or self-care (01) ==
LOC: EC 13:19
DX: N39.0 Urinary tract infection, site not specified (principal); F17.200 Nicotine dependence, unspecified, uncomplicated; Z88.5 Allergy status to narcotic agent
CPT/HCPCS: 81001; 81025; 93975; 76830; 99284; 96372; J0696

== ENCOUNTER → 2019-08-19 | Outpatient (CLI) | payer OTHER ==
--- NOTE | 2019-08-19 17:04 | XR ---
EXAMINATION TYPE: XR chest 2V DATE OF EXAM: 08/19/2019 COMPARISON: NONE HISTORY: Cough TECHNIQUE: Frontal and lateral views of the chest are obtained. FINDINGS: Heart and mediastinum are normal. Lungs are clear. Diaphragm is normal. Bony thorax appear s normal. Pulmonary vascularity is normal. IMPRESSION: Normal chest.
[2019-08-19 18:07] LABS: HCT 38.6 % (34.0-46.0); MCH 28.5 pg (25.0-35.0); MCHC 33.6 g/dL (31.0-37.0); MCV 84.9 fL (80.0-100.0); Platelet Count 222 k/uL (150-450); RBC 4.55 m/uL (3.80-5.40); RDW 13.5 % (11.5-15.5); WBC 10.1 k/uL (3.8-10.6)
[2019-08-20 00:40] LABS: African American GFR (CKD) 105.2 (60.0-200.0); Albumin/Globulin Ratio 2.27 (1.60-3.17); Anion Gap 10.7 mmol/L (4.00-12.00); BUN/Creat Ratio 21.11 Ratio (12.00-20.00); Calcium 9.4 mg/dL (8.7-10.3); Carbon Dioxide 24.3 mmol/L (21.6-31.8); Globulin 2.2 g/dL (1.6-3.3); Potassium 4.3 mmol/L (3.5-5.5); Total Bilirubin 1.3 mg/dL (0.3-1.2); Total Protein 7.2 g/dL (6.2-8.2)
== END | disposition home or self-care (01) ==
LOC: LABWHC1 16:11
PROVIDERS: ATTEND Internal Medicine
DX: R05 Cough (principal); R06.00 Dyspnea, unspecified; R53.83 Other fatigue
CPT/HCPCS: 36415; 71046; 80053; 82607; 84439; 84443; 85027

== ENCOUNTER → 2019-08-26 | Outpatient (CLI) | payer OTHER ==
--- NOTE | 2019-08-26 16:53 | CT ---
EXAMINATION TYPE: CT abdomen pelvis wo con DATE OF EXAM: 08/26/2019 COMPARISON: 04/04/2018 INDICATION: Left lower abdominal and pelvic pain. DLP: 325.1 mGycm, Automated exposure control for dose reduction was used. CONTRAST: 0 mL of Isovue 300. Study performed without Oral Contrast TECHNIQUE: Axial images were obtained from above the diaphragm to the pubic rami in the axial plane a t 5 mm thick sections. Reconstructed images are reviewed on the computer in the coronal plane. FINDINGS: Limited CT sections are obtained the lung bases. The lung bases are clear. CT ABDOMEN: Liver: Normal Spleen: Normal Pancreas: Normal Adrenal glands: The adrenal glands are normal. Gallbladder: Not visualized Kidneys: No masses are evident. No hydronephrosis is present. No cysts are present. No renal stone s are identified. Aorta: Vascular calcification is within the aorta. Inferior vena cava: Normal. CT PELVIS: Loops of bowel within the abdomen and pelvis are normal. Studies without oral contrast limiting b owel evaluation. Bowel surgeries in the right lower quadrant. The appendix is not identified. Urinary bladder: Normal. Genitourinary structures: Uterus contains an IUD. Adnexal regions are clear. Osseous structures: No suspicious lytic or sclerotic lesions. IMPRESSIONS: 1. Unremarkable noncontrast CT abdomen and pelvis
== END | disposition home or self-care (01) ==
LOC: RADCTMAIN 15:48
PROVIDERS: ATTEND Internal Medicine
DX: R10.9 Unspecified abdominal pain (principal)
CPT/HCPCS: 74176

== ENCOUNTER 2020-08-10 00:28 | Emergency (ER) | payer OTHER ==
[2020-08-10 00:35] VITALS: BP 121/85; RESP 18; TEMP 98
[2020-08-10] MEDS ORDERED: HYDROmorphone 0.5 MG/0.5 ML SYRINGE IVP STA ×2 (00:49→02:28)
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
[2020-08-10] MEDS ORDERED: HYDROmorphone 1 MG/ML 1 ML SYRINGE IVP STA ×3 (01:23→05:00)
[2020-08-10 01:29] LABS: Basophils # (A) 0.1 k/uL (0-0.2); Basophils % (A) 1 %; Eosinophils # (A) 0.2 k/uL (0-0.7); Eosinophils % (A) 2 %; HCT 39.4 % (34.0-46.0); HGB 12.8 gm/dL (11.4-16.0); Lymphocytes # (A) 1.8 k/uL (1.0-4.8); Lymphocytes % (A) 16 %; MCH 28.8 pg (25.0-35.0); MCHC 32.4 g/dL (31.0-37.0); MCV 88.6 fL (80.0-100.0); Mean Platelet Volume 7.8; Monocytes # (A) 0.4 k/uL (0-1.0); Monocytes % (A) 4 %; Neutrophils # (A) 8.6 k/uL (1.3-7.7); Neutrophils % (A) 77 %; Platelet Count 176 k/uL (150-450); RBC 4.44 m/uL (3.80-5.40); RDW 12.8 % (11.5-15.5); WBC 11.2 k/uL (3.8-10.6)
[2020-08-10 01:39] LABS: ALT 21 U/L (4-34); AST 60 U/L (14-36); African American GFR (CKD) >90 (>60 ml/min/1.73 sqM); Albumin 4.2 g/dL (3.5-5.0); Alcohol <10 mg/dL; Alkaline Phosphatase 96 U/L (38-126); Anion Gap 10 mmol/L; Blood Urea Nitrogen 14 mg/dL (7-17); Calcium 9.3 mg/dL (8.4-10.2); Carbon Dioxide 24 mmol/L (22-30); Chloride 105 mmol/L (98-107); Glucose 124 mg/dL (74-99); Non-African American GFR(CKD) >90 (>60 ml/min/1.73 sqM); Potassium 3.6 mmol/L (3.5-5.1); Sodium 139 mmol/L (137-145); Total Bilirubin 0.6 mg/dL (0.2-1.3); Total Protein 6.9 g/dL (6.3-8.2)
[2020-08-10 01:46] LABS: Prothrombin Time 10.4 sec (9.0-12.0)
[2020-08-10 01:50] LABS: Partial Thromboplastin Time 20.4 sec (22.0-30.0)
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
[2020-08-10 03:01] VITALS: PULSE 97
[2020-08-10] MEDS ORDERED: NICOTINE 14MG/24HR PATCH TRANSDERM STA (03:57)
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
== END 2020-08-10 05:36 | disposition other institution (70) ==
LOC: EC 00:28
DX: S22.078A Other fracture of T9-T10 vertebra, initial encounter for closed fracture (principal); S05.11XA Contusion of eyeball and orbital tissues, right eye, initial encounter; Z88.5 Allergy status to narcotic agent; V58.6XXA Passenger in pick-up truck or van injured in noncollision transport accident in traffic accident, initial encounter; Y93.89 Activity, other specified; Y92.410 Unspecified street and highway as the place of occurrence of the external cause
CPT/HCPCS: 93005; 86900; 86901; 80053; 83605; 84484; 85025; 85610; 85730; 86850; 80320; 72125; 70486; 70450; 71260; 74177; 99284; 96374; 96376; J1170 ×2; Q9967

== ENCOUNTER 2020-09-20 17:44 | Emergency (ER) | payer OTHER ==
[2020-09-20 17:51] VITALS: BP 142/86; PULSE 95; RESP 22; TEMP 98
[2020-09-20] MEDS ORDERED: HYDROmorphone 1 MG/ML 1 ML SYRINGE IM STA (18:00)
[2020-09-20 18:01] LABS: Glucose,Whole Blood 75 mg/dL (75-99)
[2020-09-20 18:11] LABS: Basophils # (A) 0.1 k/uL (0-0.2); Basophils % (A) 1 %; Eosinophils # (A) 0.3 k/uL (0-0.7); Eosinophils % (A) 4 %; HCT 38.8 % (34.0-46.0); HGB 12.8 gm/dL (11.4-16.0); Lymphocytes # (A) 1.8 k/uL (1.0-4.8); Lymphocytes % (A) 23 %; MCHC 32.9 g/dL (31.0-37.0); MCV 91.3 fL (80.0-100.0); Mean Platelet Volume 7.8; Monocytes # (A) 0.3 k/uL (0-1.0); Monocytes % (A) 3 %; Neutrophils # (A) 5.5 k/uL (1.3-7.7); Neutrophils % (A) 68 %; Platelet Count 194 k/uL (150-450); RBC 4.25 m/uL (3.80-5.40); RDW 12.7 % (11.5-15.5)
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
[2020-09-20 18:21] LABS: ALT 17 U/L (4-34); AST 40 U/L (14-36); African American GFR (CKD) >90 (>60 ml/min/1.73 sqM); Albumin 4.3 g/dL (3.5-5.0); Alcohol <10 mg/dL; Alkaline Phosphatase 100 U/L (38-126); Anion Gap 7 mmol/L; Blood Urea Nitrogen 15 mg/dL (7-17); Calcium 9.1 mg/dL (8.4-10.2); Carbon Dioxide 26 mmol/L (22-30); Chloride 107 mmol/L (98-107); Creatine Kinase 89 U/L (30-135); Glucose 77 mg/dL (74-99); Non-African American GFR(CKD) >90 (>60 ml/min/1.73 sqM); Potassium 4.6 mmol/L (3.5-5.1); Sodium 140 mmol/L (137-145); Total Bilirubin 0.6 mg/dL (0.2-1.3); Total Protein 7.1 g/dL (6.3-8.2)
[2020-09-20 18:28] LABS: Partial Thromboplastin Time 22.6 sec (22.0-30.0); Prothrombin Time 10.2 sec (9.0-12.0)
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
[2020-09-20 18:58] LABS: Amphetamine Screen,Urine Not Detected (NotDetected); Appearance,Urine Clear (Clear); Bacteria,Urine Rare /hpf; Barbiturate Screen,Urine Not Detected (NotDetected); Benzodiazepines Screen,Urine Not Detected (NotDetected); Bilirubin,Urine Negative (Negative); Blood,Urine Small (Negative); Cocaine Screen,Urine Not Detected (NotDetected); Color,Urine Light Yellow; Glucose,Urine (UA) Negative (Negative); Ketones,Urine Negative (Negative); Leukocyte Esterase,Urine Negative (Negative); Methadone Screen, Urine Not Detected (NotDetected); Mucus,Urine Few /hpf; Nitrite,Urine Negative (Negative); Opiate Screen,Urine Not Detected (NotDetected); Oxycodone Screen, Urine Detected (NotDetected); Phencyclidine Screen,Urine Not Detected (NotDetected); Protein,Urine Negative (Negative); RBC,Urine 4 /hpf (0-5); Specific Gravity,Urine 1.013 (1.001-1.035); Squamous Epithelial Cell,Urine <1 /hpf (0-4); Tricyclic Antidepressant,Urine Not Detected (NotDetected); Urn Cannabinoid Scrn Detected (NotDetected); Urobilinogen,Urine <2.0 mg/dL (<2.0); WBC,Urine 1 /hpf (0-5)
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
[2020-09-20] MEDS ORDERED: HYDROmorphone 1 MG/ML 1 ML SYRINGE IVP STA (19:45)
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
--- NOTE | 2020-09-20 21:08 | XR ---
Result: Clinical History: Pain. Comparison: None available. Technique: 3 views of the right shoulder. Findings: The bone mineralization is appropriate for age. No acute fracture or dislocation is seen. The acromioclavicular and glenohumeral joints are preserve d . The humeral head is well-seated in the glenoid. The visualized lung is clear. Impression: No acute osseous abnormality.
== END 2020-09-20 22:34 | disposition home or self-care (01) ==
LOC: EC 17:44
DX: S06.0X9A Concussion with loss of consciousness of unspecified duration, initial encounter (principal); M25.511 Pain in right shoulder; M25.522 Pain in left elbow; F41.9 Anxiety disorder, unspecified; F32.9 Major depressive disorder, single episode, unspecified; F17.200 Nicotine dependence, unspecified, uncomplicated; Z79.899 Other long term (current) drug therapy; Z88.5 Allergy status to narcotic agent; V43.52XA Car driver injured in collision with other type car in traffic accident, initial encounter; Y92.410 Unspecified street and highway as the place of occurrence of the external cause
CPT/HCPCS: 36415; 93005; 86900; 86901; 80053; 82550; 84484; 85025; 85610; 85730; 86850; 81001; 81025; 80306; 80320; 73562; 72170; 73030; 73080; 73130; 71045; 72129; 72125; 72132; 70450; 71260; 74177; 99285; 96374; 96372; J1170; Q9967

== ENCOUNTER 2021-08-10 09:38 | Emergency (ER) | payer OTHER ==
[2021-08-10 09:42] VITALS: RESP 18; TEMP 97.8
[2021-08-10] MEDS ORDERED: LORazepam 2 MG/ML INJ IV STA (10:06)
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
[2021-08-10 10:30] LABS: Basophils % (A) 1 %; Eosinophils # (A) 0.3 k/uL (0-0.7); Eosinophils % (A) 4 %; HCT 41.5 % (34.0-46.0); HGB 14.6 gm/dL (11.4-16.0); Lymphocytes # (A) 1.6 k/uL (1.0-4.8); Lymphocytes % (A) 27 %; MCH 30.9 pg (25.0-35.0); MCHC 35.1 g/dL (31.0-37.0); Mean Platelet Volume 8.2; Monocytes # (A) 0.3 k/uL (0-1.0); Monocytes % (A) 4 %; Neutrophils # (A) 3.7 k/uL (1.3-7.7); Neutrophils % (A) 62 %; Platelet Count 162 k/uL (150-450); RBC 4.72 m/uL (3.80-5.40); RDW 12.9 % (11.5-15.5)
[2021-08-10 10:45] LABS: ALT 14 U/L (4-34); AST 26 U/L (14-36); African American GFR (CKD) >90 (>60 ml/min/1.73 sqM); Albumin 4.9 g/dL (3.5-5.0); Alkaline Phosphatase 106 U/L (38-126); Anion Gap 12 mmol/L; Blood Urea Nitrogen 13 mg/dL (7-17); Calcium 10.4 mg/dL (8.4-10.2); Carbon Dioxide 24 mmol/L (22-30); Chloride 106 mmol/L (98-107); Glucose 100 mg/dL (74-99); Non-African American GFR(CKD) >90 (>60 ml/min/1.73 sqM); Potassium 4.1 mmol/L (3.5-5.1); Sodium 142 mmol/L (137-145); Total Bilirubin 1.4 mg/dL (0.2-1.3); Total Protein 8.4 g/dL (6.3-8.2)
--- NOTE | 2021-08-10 10:47 | ED ---
General Adult HPI - General Chief complaint: Shortness of Breath Stated complaint: SOB Time Seen by Provider: 08/10/21 09:44 Source: patient Mode of arrival: ambulatory Limitations: no limitations - History of Present Illness Initial comments: 26-year-old female presents to the emergency room with a chief complaint of chest pain and shortness of breath. Patient reports she has history of anxiety and bipolar disorder prescribed being treated for. Patient reports this does not feel like a panic attack to her. States she has been experiencing these symptoms for about one week of right-sided chest tightness without any radiation. States the symptoms are exacerbated whenever she is taking deep breaths. Patient also reports exertional dyspnea. She also reports a productive cough with white sputum production. Not vaccinated for color. Patient does vape. Denies any fevers or chills, sore throat, otalgia, rhinorrhea or congestion. - Related Data Home Medications Medication Instructions Recorded Confirmed ALPRAZolam [Xanax] 0.5 mg PO DAILY PRN 08/10/21 08/10/21 ARIPiprazole 15 mg PO HS 08/10/21 08/10/21 busPIRone HCL 5 mg PO BID 08/10/21 08/10/21 Allergies Allergy/AdvReac Type Severity Reaction Status Date / Time morphine AdvReac Itching Verified 08/10/21 11:02 Review of Systems ROS Statement: Those systems with pertinent positive or pertinent negative responses have been documented in the HPI. ROS Other: All systems not noted in ROS Statement are negative. Past Medical History Past Medical History: No Reported History Additional Past Medical History / Comment(s): herpes History of Any Multi-Drug Resistant Organisms: None Reported Past Surgical History: Appendectomy, Section Additional Past Surgical History / Comment(s): back brache T2-8 compression fractured Past Anesthesia/Blood Transfusion Reactions: No Reported Reaction Additional Past Anesthesia/Blood Transfusion Reaction / Comment(s): NEVER HAS HAD GENERAL ANESTHESIA Past Psychological History: Anxiety, Bipolar, Depression Smoking Status: Current every day smoker Past Alcohol Use History: None Reported Past Drug Use History: Marijuana - Past Family History Son(s) Family Medical History: No Reported History Mother Family Medical History: No Reported History Father Additional Family Medical History / Comment(s): "PASSES OUT" PER PT General Exam Limitations: no limitations General appearance: alert, in no apparent distress, anxious Head exam: Present: atraumatic, normocephalic, normal inspection Eye exam: Present: normal appearance, PERRL, EOMI Pupils: Present: normal accommodation ENT exam: Present: normal exam, normal oropharynx, mucous membranes moist Neck exam: Present: normal inspection, full ROM. Absent: tenderness, lymphadenopathy Respiratory exam: Present: normal lung sounds bilaterally. Absent: respiratory distress, wheezes, rales, rhonchi, stridor, chest wall tenderness, accessory muscle use Cardiovascular Exam: Present: regular rate, normal rhythm, normal heart sounds Extremities exam: Present: normal inspection, full ROM, normal capillary refill. Absent: tenderness Back exam: Present: normal inspection, full ROM. Absent: tenderness, CVA tenderness (R), CVA tenderness (L) Neurological exam: Present: alert, oriented X3, CN II-XII intact, normal gait Psychiatric exam: Present: normal affect, normal mood Skin exam: Present: warm, dry, intact, normal color Course Vital Signs 08/10/21 09:39 Temperature 97.8 F Pulse Rate 100 Respiratory 18 Rate Blood Pressure 136/92 O2 Sat by Pulse 96 Oximetry EKG Findings - EKG Comments: EKG Findings:: Sinus arrhythmia. Ventricular rate 70, DE 128, QRS 78, QTC 399. Medical Decision Making - Medical Decision Making 26-year-old female presenting to the emergency department with a chief complaint of shortness of breath. On Physical examination patient is quite anxious. Patient was given some Ativan IV fluids. CBC CMP unremarkable. Negative . Negative Covid. Chest x-ray is unremarkable. EKG showing sinus arrhythmia without acute ischemic changes. Coags within normal limits. Troponin within normal limits. Negative d-dimer. On reevaluation, patient reports improvement in symptoms. He suspect this is related to her anxiety. I counseled the patient for smoking cessation for greater than 3 minutes. Return parameters were thoroughly discussed the patient was understanding and agreeable. Case discussed with Dr. Sanchez. - Lab Data Result diagrams: 08/10/21 10:08/10/21 10:09 Lab Results 08/10/21 08/10/21 08/10/21 Range/Units 10:09 10:09 10:09 WBC 6.0 (3.8-10.6) k/uL RBC 4.72 (3.80-5.40) m/uL Hgb 14.6 (11.4-16.0) gm/dL Hct 41.5 (34.0-46.0) % MCV 88.0 (80.0-100.0) fL MCH 30.9 (25.0-35.0) pg MCHC 35.1 (31.0-37.0) g/dL RDW 12.9 (11.5-15.5) % Plt Count 162 (150-450) k/uL MPV 8.2 Neutrophils % 62 % Lymphocytes % 27 % Monocytes % 4 % Eosinophils % 4 % Basophils % 1 % Neutrophils # 3.7 (1.3-7.7) k/uL Lymphocytes # 1.6 (1.0-4.8) k/uL Monocytes # 0.3 (0-1.0) k/uL Eosinophils # 0.3 (0-0.7) k/uL Basophils # 0.0 (0-0.2) k/uL PT 10.9 (9.0-12.0) sec INR 1.0 (<1.2) APTT 24.7 (22.0-30.0) sec D-Dimer 0.54 (<0.60) mg/L FEU Sodium 142 (137-145) mmol/L Potassium 4.1 (3.5-5.1) mmol/L Chloride 106 (98-107) mmol/L Carbon Dioxide 24 (22-30) mmol/L Anion Gap 12 mmol/L BUN 13 (7-17) mg/dL Creatinine 0.85 (0.52-1.04) mg/dL Est GFR (CKD-EPI)AfAm >90 (>60 ml/min/1.73 sqM) Est GFR (CKD-EPI)NonAf >90 (>60 ml/min/1.73 sqM) Glucose 100 H (74-99) mg/dL Calcium 10.4 H (8.4-10.2) mg/dL Magnesium 2.0 (1.6-2.3) mg/dL Total Bilirubin 1.4 H (0.2-1.3) mg/dL AST 26 (14-36) U/L ALT 14 (4-34) U/L Alkaline Phosphatase 106 (38-126) U/L Troponin I (0.000-0.034) ng/mL Total Protein 8.4 H (6.3-8.2) g/dL Albumin 4.9 (3.5-5.0) g/dL HCG, Qual Not Detected Coronavirus (PCR) (Not Detectd) 08/10/21 08/10/21 Range/Units 10:09 10:16 WBC (3.8-10.6) k/uL RBC (3.80-5.40) m/uL Hgb (11.4-16.0) gm/dL Hct (34.0-46.0) % MCV (80.0-100.0) fL MCH (25.0-35.0) pg MCHC (31.0-37.0) g/dL RDW (11.5-15.5) % Plt Count (150-450) k/uL MPV Neutrophils % % Lymphocytes % % Monocytes % % Eosinophils % % Basophils % % Neutrophils # (1.3-7.7) k/uL Lymphocytes # (1.0-4.8) k/uL Monocytes # (0-1.0) k/uL Eosinophils # (0-0.7) k/uL Basophils # (0-0.2) k/uL PT (9.0-12.0) sec INR (<1.2) APTT (22.0-30.0) sec D-Dimer (<0.60) mg/L FEU Sodium (137-145) mmol/L Potassium (3.5-5.1) mmol/L Chloride (98-107) mmol/L Carbon Dioxide (22-30) mmol/L Anion Gap mmol/L BUN (7-17) mg/dL Creatinine (0.52-1.04) mg/dL Est GFR (CKD-EPI)AfAm (>60 ml/min/1.73 sqM) Est GFR (CKD-EPI)NonAf (>60 ml/min/1.73 sqM) Glucose (74-99) mg/dL Calcium (8.4-10.2) mg/dL Magnesium (1.6-2.3) mg/dL Total Bilirubin (0.2-1.3) mg/dL AST (14-36) U/L ALT (4-34) U/L Alkaline Phosphatase (38-126) U/L Troponin I <0.012 (0.000-0.034) ng/mL Total Protein (6.3-8.2) g/dL Albumin (3.5-5.0) g/dL HCG, Qual Coronavirus (PCR) Not Detected (Not Detectd) Disposition Clinical Impression: Acute anxiety, Bronchitis Disposition: HOME SELF-CARE Condition: Stable Instructions (If sedation given, give patient instructions): Acute Bronchitis (ED) Additional Instructions: Please return to the Emergency Department if symptoms worsen or any other concerns. Is patient prescribed a controlled substance at d/c from ED?: No Referrals: Jayden Willson MD [Primary Care Provider] - 1-2 days Time of Disposition: 11:22
[2021-08-10 10:59] LABS: HCG,Qualitative Serum Not Detected
[2021-08-10 11:09] LABS: Partial Thromboplastin Time 24.7 sec (22.0-30.0); Prothrombin Time 10.9 sec (9.0-12.0)
[2021-08-10 11:23] VITALS: PULSE 82
[2021-08-10 11:55] VITALS: BP 112/75
== END 2021-08-10 11:36 | disposition home or self-care (01) ==
LOC: EC 09:38
DX: F41.9 Anxiety disorder, unspecified (principal); J40 Bronchitis, not specified as acute or chronic; F17.200 Nicotine dependence, unspecified, uncomplicated; F31.9 Bipolar disorder, unspecified; Z79.899 Other long term (current) drug therapy; Z88.5 Allergy status to narcotic agent; Z20.822 Contact with and (suspected) exposure to COVID-19
CPT/HCPCS: 36415; 93005; 85379; 80053; 83735; 84484; 85025; 85610; 85730; 84703; 87635; 71046; 99285; 96374; J2060